=== PATIENT | male | born 1965 | race Caucasian/White ===

== ENCOUNTER → 2020-03-16 17:50 | Outpatient (CLI) | payer OTHER, SELFPAY ==
[2020-03-16 18:10] LABS: Basophils % 0.4 % (0.1-2.0); Eosinophils # 0.3 K/mm3 (0.0-0.4); Eosinophils % 2.8 % (0.1-12.0); Hematocrit 44.6 % (42.0-52.0); Hemoglobin 15.5 g/dL (14.1-18.0); Lymphocytes # 1.9 K/mm3 (0.7-4.5); Lymphocytes % 19.1 % (10-50); Mean Corpuscular HGB Conc 34.7 g/dL (31.8-35.4); Mean Corpuscular Hemoglobin 32.3 pg (27.0-31.2); Mean Corpuscular Volume 93.1 fl (80-94); Monocytes # 0.5 K/mm3 (0.1-1.0); Monocytes % 5.1 % (1.7-9.3); Neutrophils # 7.2 K/mm3 (1.8-7.8); Neutrophils % 72.6 % (37.0-80.0); Platelet Count 221 K/mm3 (142-424); Red Blood Count 4.79 M/mm3 (4.60-6.20); Red Cell Distribution Width 15.1 % (11.5-17.5); White Blood Count 9.8 K/mm3 (4.8-10.8)
[2020-03-16 18:29] LABS: Chloride 91 mmol/L (98-107); Potassium 3.9 mmoL/L (3.5-5.1); Sodium 132 mmol/L (136-145)
[2020-03-16 18:31] LABS: Blood Urea Nitrogen 16 mg/dl (9-20); Estimated Glomerular Filt Rate 57 ml/min (>60); GFR (African American) 69 ML/MIN (>60)
[2020-03-16 18:32] LABS: Alanine Aminotransferase 22 U/L (12-78); Albumin Level 4.5 g/dl (3.5-5.0); Albumin/Globulin Ratio 1.4 (1.1-1.8); Alkaline Phosphatase 146 U/L (38-126); Anion Gap 17.9 mEq/L (5-15); Aspartate Amino Transferase 39 U/L (17-59); Bilirubin,Total 0.9 mg/dl (0.2-1.3); Calcium 9.4 mg/dl (8.4-10.2); Carbon Dioxide 27 mmol/L (22.0-30.0); Chol/HDL Ratio 3.9 (1-3.5); Cholesterol 136 mg/dl (140-200); Globulin 3.2 g/dL (1.3-3.2); Glucose 309 mg/dl (74-100); HDL Cholesterol 35 mg/dl (40-60); Total Protein,Serum 7.7 g/dl (6.3-8.2)
[2020-03-16 18:44] LABS: Direct LDL Cholesterol 63.35 mg/dL (100-129)
[2020-03-16 19:02] LABS: Triglycerides 439 mg/dl (30-150)
[2020-03-16 19:18] LABS: Hemoglobin A1C 11.4 % (4.0-6.0)
== END ==
PROVIDERS: Visit Provider Family Medicine
DX: E11.9 Type 2 diabetes mellitus without complications (principal); Z79.84 Long term (current) use of oral hypoglycemic drugs
CPT/HCPCS: 80053; 80061; 83036; 85025

== ENCOUNTER → 2020-11-30 17:07 | Outpatient (CLI) | payer OTHER, SELFPAY ==
[2020-11-30 17:52] LABS: Basophils % 0.5 % (0.1-2.0); Eosinophils # 0.3 K/mm3 (0.0-0.4); Eosinophils % 4.4 % (0.1-12.0); Hematocrit 43.5 % (42.0-52.0); Hemoglobin 14.5 g/dL (14.1-18.0); Lymphocytes # 1.7 K/mm3 (0.7-4.5); Mean Corpuscular HGB Conc 33.3 g/dL (31.8-35.4); Mean Corpuscular Hemoglobin 29.9 pg (27.0-31.2); Mean Corpuscular Volume 89.9 fl (80-94); Mean Platelet Volume 8.1 fl (7.4-10.4); Monocytes # 0.4 K/mm3 (0.1-1.0); Monocytes % 4.8 % (1.7-9.3); Neutrophils # 5.3 K/mm3 (1.8-7.8); Neutrophils % 68.4 % (37.0-80.0); Platelet Count 202 K/mm3 (142-424); Red Blood Count 4.84 M/mm3 (4.60-6.20); White Blood Count 7.7 K/mm3 (4.8-10.8)
[2020-11-30 18:28] LABS: Chloride 95 mmol/L (98-107); Potassium 4.2 mmoL/L (3.5-5.1); Sodium 134 mmol/L (136-145)
[2020-11-30 18:31] LABS: Alanine Aminotransferase 27 U/L (12-78); Albumin Level 4.5 g/dl (3.5-5.0); Albumin/Globulin Ratio 1.7 (1.1-1.8); Alkaline Phosphatase 90 U/L (38-126); Anion Gap 12.2 mEq/L (5-15); Aspartate Amino Transferase 56 U/L (17-59); Bilirubin,Total 0.8 mg/dl (0.2-1.3); Blood Urea Nitrogen 12 mg/dl (9-20); Carbon Dioxide 31 mmol/L (22.0-30.0); Cholesterol 157 mg/dl (140-200); Estimated Glomerular Filt Rate 77 ml/min (>60); GFR (African American) 94 ML/MIN (>60); Globulin 2.6 g/dL (1.3-3.2); Total Protein,Serum 7.1 g/dl (6.3-8.2); Triglycerides 333 mg/dl (30-150); VLDL Cholesterol 67 mg/dL (0-40)
[2020-11-30 18:32] LABS: Calcium 9.5 mg/dl (8.4-10.2); Chol/HDL Ratio 4.9 (1-3.5); Glucose 223 mg/dl (74-100); HDL Cholesterol 32 mg/dl (40-60)
[2020-11-30 18:42] LABS: Direct LDL Cholesterol 84.23 mg/dL (100-129)
[2020-11-30 18:48] LABS: 25-OH Vitamin D, Total 18.8 ng/mL (30-100)
[2020-11-30 18:50] LABS: T4 (Thyroxine) 10.7 ug/dl (5.53-11.0)
[2020-11-30 19:02] LABS: Thyroid Stimulating Hormone 0.57 uIU/mL (0.465-4.68)
[2020-12-03 12:37] LABS: Creatinine,Urine Random 87 mg/dL (Not Estab.); Microalbumin > 190.000 mg/L (0-16.7); Microalbumin/Creatinine Ratio 218.3
[2020-12-07 16:00] LABS: Testosterone, Total, LC/MS 214.2 ng/dL (264.0-916.0); Testosterone,Free 2.4 pg/mL (7.2-24.0)
== END ==
PROVIDERS: Visit Provider Family Medicine
DX: I25.10 Atherosclerotic heart disease of native coronary artery without angina pectoris (principal); E11.59 Type 2 diabetes mellitus with other circulatory complications; Z79.4 Long term (current) use of insulin
CPT/HCPCS: 80053; 80061; 82043; 82306; 82570; 83036; 84402; 84403; 84436; 84443; 85025

== ENCOUNTER → 2021-01-31 14:07 | Outpatient (CLI) | payer OTHER, SELFPAY ==
[2021-01-31 14:37] LABS: Barbiturates Screen,Urine Negative ng/ml (<200)
[2021-01-31 14:38] LABS: Amphetamine/Metha Screen,Urine Negative ng/ml (<1000); Benzodiazepines Screen,Urine Negative ng/ml (<200)
[2021-01-31 14:39] LABS: Cocaine Screen,Urine Negative ng/ml (<300)
[2021-01-31 14:40] LABS: Cannabinoid Screen,Urine Negative ng/ml (<50); Methadone Screen,Urine Negative ng/ml (<300)
[2021-01-31 14:41] LABS: Opiate Screen,Urine Negative ng/ml (<300); Phencyclidine Screen,Urine Negative ng/ml (<25)
== END ==
PROVIDERS: Visit Provider Family Medicine
DX: Z79.899 Other long term (current) drug therapy (principal)
CPT/HCPCS: 80305

== ENCOUNTER 2021-05-17 10:37 | Inpatient (IN) | payer OTHER, SELFPAY ==
[2021-05-17] VITALS (9 sets, daily range): BP systolic 97–137; BP diastolic 44–77; PULSE 72–91; RESP 12–18; TEMP 36.8–37.1; O2SAT 90–95; BMI 36.9; BMI 82.0
--- NOTE | 2021-05-17 10:42 | XR_ITS ---
PROCEDURE: XR CHEST PORTABLE CLINICAL HISTORY: syncope COMPARISON: No exams were available for comparison FINDINGS: The cardiomediastinal silhouette and pulmonary vascularity are within normal limits. The lung burnette are well expanded. There patchy ill-defined opacities in the perihilar regions and lower lobes bilaterally. This could be secondary to early Covid19 type pneumonia. There is no pleural fluid. There are neurostimulator electrodes projecting over the mid thoracic spine. There has been previous anterior cervical fusion C7 and T1. IMPRESSION: Mild diffuse ill-defined opacities in the perihilar regions and lower lobes bilaterally worrisome for early viral and or Covid19 type pneumonia Dictated by: Dr. Tal Martin MD 05/17/2021 11:23 Dr. Tal Martin MD in [place] 05/17/2021 11:23
--- NOTE | 2021-05-17 10:44 | CT_ITS ---
PROCEDURE: CT HEAD/BRAIN WO CON CLINICAL INDICATION: gait disturbance COMPARISON: No exams were available for comparison TECHNIQUE: Axial images obtained. All CT scans at the facility use one or more dose reduction, viz: automated exposure control, ma/kV adjustment per patient size (including targeted exams where dose is matched to indication, i.e. head), or iterative reconstruction technique. FINDINGS: No midline shift, mass effect, intracranial hemorrhage, hydrocephalus, or extra-axial fluid collection is evident. The ventricular system appears normal. The calvarium has an unremarkable appearance. No mastoid effusion. The internal auditory canals appear normal bilaterally. No sinus air-fluid level. IMPRESSION: No acute intracranial finding Dictated by: Dr. Tal Martin MD 05/17/2021 11:21 Dr. Tal Martin MD in [facility] 05/17/2021 11:21
--- NOTE | 2021-05-17 10:44 | HMH.EDGENADL ---
ED Disposition Clinical Impression: SIENNA (acute kidney injury), Near syncope Disposition: Admitted As Inpatient Condition on Discharge: Fair Referrals: Ed Cavazos MD [Primary Care Provider] - Time of Disposition: 11:41 - Critical Care Critical Care Time: No Attestation: On 05/17/21, the high probability of a clinically significant, sudden or life threatening deterioration of the following system(s) required my full and direct attention, intervention and personal management. The time I documented below is in addition to time spent performing reported procedures but includes the following listed in this critical care notation. Medical Decision Making - Medical Records Medical records reviewed: Yes: I reviewed the patient's medical records. - Radu Inquiry Pt receiving controlled substance: No Vital Signs: 05/17/21 10:42 05/17/21 11:15 05/17/21 11:31 Temperature 98.4 F Temperature Source Oral Pulse Rate 91 H 87 Pulse Rate [Apical] 90 Respiratory Rate 18 16 16 Blood Pressure 97/44 L 100/49 L Blood Pressure [Right Arm] 101/49 L Blood Pressure Mean 61 66 Blood Pressure Mean [Right Arm] 66 Blood Pressure Source [Right Arm] Automatic Cuff Blood Pressure Position [Right Arm] Sitting 02 Sat by Pulse Oximetry 94 L 95 94 L Oxygen Delivery Method Room Air - Lab Data Lab results reviewed: Yes: I reviewed the patient's lab results. Lab Results 05/17/21 10:50: WBC 14.3 H, RBC 4.70, Hgb 14.9, Hct 44.2, MCV 94.1 H, MCH 31.7 H, MCHC 33.7, RDW 14.8, Plt Count 223, MPV 8.4, Neut % (Auto) 82.5 H, Lymph % (Auto) 11.6, [place] % (Auto) 3.5, Eos % (Auto) 2.1, Baso % (Auto) 0.3, Neut # (Auto) 11.8 H, Lymph # (Auto) 1.7, [place] # (Auto) 0.5, Eos # (Auto) 0.3, Baso # (Auto) 0.0 05/17/21 10:50: Sodium 129 L, Potassium 3.8, Chloride 90 L, Carbon Dioxide 24, Anion Gap 18.8 H, BUN 48 H, Creatinine 4.50 H, Estimated Creat Clear 29, Estimated GFR 14 L*, Est GFR ( Amer) 16 L*, Glucose 244 H, Calcium 8.7, Total Bilirubin 1.5 H, AST 38, ALT 32, Alkaline Phosphatase 108, Troponin I 0.02, Total Protein 8.1, Albumin 4.3, Globulin 3.8 H, Albumin/Globulin Ratio 1.1 05/17/21 11:37: SARS-CoV-2 (PCR) Not detected, Influenza A Untype (PCR) Not detected, Influenza Type B (PCR) Not detected Result diagrams: 05/17/21 10:50 05/17/21 10:50 Orders (Tests/Meds): ED MEDICATIONS Generic Name Dose Route Start Last Admin Trade Name Freq PRN Reason Stop Dose Admin Lactated Ringer's 1,000 mls @ 999 mls/hr 05/17/21 11:30 05/17/21 11:39 Lactated Ringer's 1000 Ml Bag IV 05/17/21 12:30 999 mls/hr .[id number] MAMIE Administration ORDERS Category Date Time Status Lactic Acid Stat Lab 05/17/21 12:03 Received Urinalysis and Microscopic Stat Lab 05/17/21 10:43 Ordered - Radiology Data #1 Image(s): Chest Image Reviewed: Yes I reviewed the patient's radiology results Preliminary Findings: Abnormal Infiltrate, possible early COVID-19 - CT Data CT Scan: Head Time Received: 11:[address] Reviewed: Yes: I have reviewed the patient's CT results Preliminary Findings: Normal/NAD - ECG Data Tracing #1 I reviewed this ECG and interpreted as documented below: Normal sinus rhythm, 87 bpm, no ST ovation or depression, no ectopy. ECG initial impression date: 05/17/21 ECG initial impression time: 10:59 Medical Decision Narrative: 55yo M presents the emergency department from his PCP office secondary to hypotension and near syncope. Patient is in no acute distress initial evaluation. His blood pressure is soft though MAP is greater than 65. Physical exam is unremarkable though he does have a small skin lesion to his belt line on the left side that appears to be healing. There is minimal surrounding erythema. CBC, CMP, troponin, lactic acids, EKG, CT head and chest x-ray have been completed. CBC shows a mild leukocytosis. Metabolic panel is remarkable for a creatinine of 4.5. Patient also noted to have an anion gap
--- NOTE | 2021-05-17 10:55 | ECG_ITS ---
APPROVED REPORT Exam: Resting ECG HR:87 bpm ECG Measurements Heart Rate 87 AXES [place] 180 P QRSd 96 QRS 102 QT 412 T 155 QTc 495 Conclusion Normal sinus rhythm Non-significant q waves in inf leads noted Poor r wave progression Abnormal ECG Electronically signed by : Abraham Hernandez MD 05/18/2021 08:22:23
--- NOTE | 2021-05-17 10:58 | PC.NURSE ---
pt to CT
[2021-05-17 11:05] LABS: Basophils % 0.3 % (0.1-2.0); Eosinophils # 0.3 K/mm3 (0.0-0.4); Eosinophils % 2.1 % (0.1-12.0); Hematocrit 44.2 % (42.0-52.0); Hemoglobin 14.9 g/dL (14.1-18.0); Lymphocytes # 1.7 K/mm3 (0.7-4.5); Lymphocytes % 11.6 % (10-50); Mean Corpuscular HGB Conc 33.7 g/dL (31.8-35.4); Mean Corpuscular Hemoglobin 31.7 pg (27.0-31.2); Mean Corpuscular Volume 94.1 fl (80-94); Mean Platelet Volume 8.4 fl (7.4-10.4); Monocytes # 0.5 K/mm3 (0.1-1.0); Monocytes % 3.5 % (1.7-9.3); Neutrophils # 11.8 K/mm3 (1.8-7.8); Neutrophils % 82.5 % (37.0-80.0); Platelet Count 223 K/mm3 (142-424); Red Cell Distribution Width 14.8 % (11.5-17.5); White Blood Count 14.3 K/mm3 (4.8-10.8)
[2021-05-17 11:13] LABS: Alanine Aminotransferase 32 U/L (12-78); Albumin Level 4.3 g/dl (3.5-5.0); Albumin/Globulin Ratio 1.1 (1.1-1.8); Alkaline Phosphatase 108 U/L (38-126); Anion Gap 18.8 mEq/L (5-15); Aspartate Amino Transferase 38 U/L (17-59); Bilirubin,Total 1.5 mg/dl (0.2-1.3); Blood Urea Nitrogen 48 mg/dl (9-20); Calcium 8.7 mg/dl (8.4-10.2); Carbon Dioxide 24 mmol/L (22.0-30.0); Chloride 90 mmol/L (98-107); Creatinine Clearance Estimated 29 mL/min (50-200); Estimated Glomerular Filt Rate 14 ml/min (>60); GFR (African American) 16 ML/MIN (>60); Globulin 3.8 g/dL (1.3-3.2); Glucose 244 mg/dl (74-100); Potassium 3.8 mmoL/L (3.5-5.1); Sodium 129 mmol/L (136-145); Total Protein,Serum 8.1 g/dl (6.3-8.2)
[2021-05-17 11:25] LABS: Troponin I 0.02 ng/ml (0.00-0.034)
--- NOTE | 2021-05-17 11:34 | PC.NURSE ---
Dr Dirk stanton
[2021-05-17 11:43] LABS: Coronavirus 19, PCR Not Detected (NotDetected); Influenza A, PCR Not Detected (NotDetected); Influenza B, PCR Not Detected (NotDetected)
--- NOTE | 2021-05-17 12:05 | PC.NURSE ---
Dr Dirk stanton
--- NOTE | 2021-05-17 12:09 | PC.NURSE ---
speaking with Dr. Cavazos
--- NOTE | 2021-05-17 12:11 | PC.NURSE ---
Notified care management of admission
[2021-05-17 12:27] LABS: Lactic Acid 1.2 mmol/L (0.7-2.1)
--- NOTE | 2021-05-17 12:39 | PC.NURSE ---
report called to stephanie hawk on second floor at this time.
--- NOTE | 2021-05-17 12:40 | P.CONPHA_ITS ---
[facility] Pharmacy VTE Monitoring - Patient Demographics Admission date: 05/17/21 Report Date: 05/17/21 Time: 12:41 Allergies/Adverse Reactions: Patient Allergies No Known Allergies Allergy (Verified 05/17/21 09:02) Height: 1.75 m Weight: 113.398 kg Patient Problems: Current Active Problems SIENNA (acute kidney injury) (Acute) Near syncope (Acute) - VTE Risk Labs: VTE Related Lab Results Hgb 14.9 g/dL (14.1-18.0) 05/17/21 10:50 Hct 44.2 % (42.0-52.0) 05/17/21 10:50 Plt Count 223 K/mm3 (142-424) 05/17/21 10:50 BUN 48 mg/dl (9-20) H 05/17/21 10:50 Creatinine 4.50 mg/dl (0.66-1.25) H 05/17/21 10:50 Estimated Creat Clear 29 mL/min (50-200) 05/17/21 10:50 - Prophylaxis VTE Prophylaxis Ordered?: Yes Types of VTE Prophylaxis: IPCS Thigh High, Pharmacological Location of Applied Device: Bilateral Lower Extremeties Pharmacologic Type: Enoxaparin
--- NOTE | 2021-05-17 12:40 | HMH.PHAINT ---
MEDICATION RECONCILIATION COMPLETED ON PATIENT USING EXTERNAL FILL HISTORY FROM PHARMACY AND LIST FROM DR. CORTEZ' OFFICE. -DIYA HANEY, HOLLANDD
[2021-05-17 16:12] LABS: POC Glucose,Bedside 230 (70-110)
--- NOTE | 2021-05-17 17:48 | US_ITS ---
PROCEDURE INFORMATION: Exam: US Retroperitoneal; Complete; Kidneys and Bladder Exam date and time: 05/17/2021 5:48 PM Age: 55 years old Clinical indication: Other: Dizzy, bun and creat elevated, diabetic, low sodium; Additional info: [place] TECHNIQUE: Imaging protocol: Real-time ultrasound of the retroperitoneum with image documentation. Complete exam focused on the kidneys and bladder. COMPARISON: No relevant prior studies available. FINDINGS: Right kidney: Normal. No stones. No hydronephrosis. 11.7 x 5.6 x 8 cm. Left kidney: Normal. No stones. No hydronephrosis. 11.7 x 5.6 x 5.4 cm. Urinary bladder: Unremarkable. IMPRESSION: Unremarkable kidneys and bladder.
--- NOTE | 2021-05-17 18:32 | HMH.HP ---
*Admission Date: 05/17/21 *Chief complaint: syncope, hypotension,acute kidney injury *History of present illness: Patient is a 55-year-old white male, well-known to me. Patient was seen in my office this morning. I received a call from his mother last night, she relate that he was getting progressively weak and had had a syncopal episode while working yesterday. 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 Patient has a history of coronary artery disease, status post stent deployment. Patient has a history of diabetes, poor control, marginal dietary compliance with a fairly recent renewal of interest in achieving better control. Patient has a history of failed lumbar surgery, intractable pain radiating into bilateral lower extremities. Patient has a history of tobacco abuse. Patient was seen not long ago in the office. He had a skin lesion along the left anterior lateral beltline that was suggestive of a MRSA infection. He has had very similar infections in the past in the same location, treated with Bactrim successfully. Patient was placed on Bactrim at that last office visit. Patient was worked up in the office with an EKG, showing normal sinus rhythm, normal intervals, no acute ST changes. Rotdc-ct-vtcg glucose was in the 200s. Patient subsequently work-up in the emergency room. CT of the brain is negative. Lab work is significant for a creatinine of 4.5. His white count is mildly elevated, sodium reduced at 129. He is admitted for further evaluation and treatment. I just finished examining the patient in the ultrasound room, kidneys appear grossly normal without signs of obstruction. Final reading by the virtual radiologist is pending. Prior to admission the patient relays being unsteady on his feet, shaky, fatigued, globally weakened, with appetite loss and limited p.o. intake. His blood pressure readings have been low, has been holding his losartan. Patient has a history of Rene's palsy about 2 years ago. This has come to near complete resolution. Patient has a fine tremor, especially notable when using the keyboard. There are no other focal neurologic deficits. Normal CT the brain is reassuring [facility] History Medical History: Reports:: Anxiety, Congenital Heart Disease, Coronary Artery Disease, Depression, Diabetes Mellitus Type 2, Gastroesophageal Reflux Disease(GERD), Hyperlipidemia, Hypertension Denies:: Cancer, Diabetes Mellitus Type 1, MRSA *Have you ever received a pneumonia vaccine?: Yes *Have you received a flu vaccine this season?: No Other Surgeries: Yes: Cardiac Catheterization, Coronary Stent Amputation: No Fractures: Yes (RT wrist) - *Social History Smoking Status: Current every day smoker Tobacco Type: cigarettes # Packs/Day (cigarettes): 2 #Yrs smoked (if former smoker): 20 Alcohol Intake: current Alcohol Intake Frequency:: a few times a month Substance Use Type: denies use *Occupational Status:: employed Housing: house Household Members: spouse *Travel in the last 8 weeks: None - Psychiatric History Pschychiatric History:: Reports:: Anxiety, Depression Family Hx:: No significant family history Review of Systems - Constitutional Reports anorexia, Reports fatigue, Reports lack of energy, Reports malaise - Eyes Denies change in vision - ENT Denies abnormal hearing - *Cardiovascular Reports lightheadedness, Denies chest pain - *Respiratory Denies chest congestion - *Gastrointestinal Denies abdominal pain - *Genitourinary Reports decreased urination, Denies difficulty urinating, Denies painful urination, Denies side pain, Denies urinary hesitancy - *Musculoskeletal Reports abnormal walking - Integumentary/Breasts Reports boil - *Neurologic Reports abnormal walking, Reports lack of coordination, Reports fainting, Reports tremor(s), Reports dizziness, Reports weakness - Psychiatric Reports difficulty concentrating, Denies lack of enjoyment, Denies memory loss - Endoc
[2021-05-17 19:38] LABS: Anion Gap 14.3 mEq/L (5-15); Blood Urea Nitrogen 49 mg/dl (9-20); Calcium 8.2 mg/dl (8.4-10.2); Carbon Dioxide 24 mmol/L (22.0-30.0); Chloride 95 mmol/L (98-107); Creatinine Clearance Estimated 27 mL/min (50-200); Estimated Glomerular Filt Rate 21 ml/min (>60); GFR (African American) 25 ML/MIN (>60); Glucose 203 mg/dl (74-100); Potassium 4.3 mmoL/L (3.5-5.1); Sodium 129 mmol/L (136-145)
[2021-05-17 22:11] LABS: POC Glucose,Bedside 191 (70-110)
[2021-05-18] VITALS (8 sets, daily range): BP systolic 109–161; BP diastolic 70–94; PULSE 75–101; RESP 16–18; TEMP 36.6–37.3; O2SAT 90–94; BMI 37.6
--- NOTE | 2021-05-18 05:01 | PC.NURSE ---
Pt a+o x4. Pt has slept majority of shift. No complaints voiced to staff. Lung sounds clear. BM sounds active x4q. Able to ambulate to BR independently. CB in reach.
[2021-05-18 05:56] LABS: POC Glucose,Bedside 155 (70-110)
[2021-05-18 06:15] LABS: Basophils % 0.4 % (0.1-2.0); Eosinophils # 0.3 K/mm3 (0.0-0.4); Eosinophils % 3.1 % (0.1-12.0); Hematocrit 39.8 % (42.0-52.0); Hemoglobin 13.1 g/dL (14.1-18.0); Lymphocytes # 1.5 K/mm3 (0.7-4.5); Lymphocytes % 17.8 % (10-50); Mean Corpuscular HGB Conc 32.8 g/dL (31.8-35.4); Mean Corpuscular Hemoglobin 31.3 pg (27.0-31.2); Mean Corpuscular Volume 95.4 fl (80-94); Mean Platelet Volume 8.8 fl (7.4-10.4); Monocytes # 0.4 K/mm3 (0.1-1.0); Monocytes % 4.8 % (1.7-9.3); Neutrophils # 6.4 K/mm3 (1.8-7.8); Neutrophils % 73.9 % (37.0-80.0); Platelet Count 186 K/mm3 (142-424); Red Blood Count 4.17 M/mm3 (4.60-6.20); Red Cell Distribution Width 14.8 % (11.5-17.5); White Blood Count 8.6 K/mm3 (4.8-10.8)
[2021-05-18 06:24] LABS: Chloride 99 mmol/L (98-107); Sodium 135 mmol/L (136-145)
[2021-05-18 06:25] LABS: Potassium 3.7 mmoL/L (3.5-5.1)
[2021-05-18 06:27] LABS: Alanine Aminotransferase 22 U/L (12-78); Alkaline Phosphatase 104 U/L (38-126); Aspartate Amino Transferase 32 U/L (17-59); Blood Urea Nitrogen 38 mg/dl (9-20); Creatinine Clearance Estimated 67 mL/min (50-200); Estimated Glomerular Filt Rate 35 ml/min (>60); GFR (African American) 42 ML/MIN (>60)
[2021-05-18 06:28] LABS: Albumin Level 3.5 g/dl (3.5-5.0); Albumin/Globulin Ratio 1.1 (1.1-1.8); Anion Gap 13.7 mEq/L (5-15); Calcium 8.4 mg/dl (8.4-10.2); Carbon Dioxide 26 mmol/L (22.0-30.0); Globulin 3.2 g/dL (1.3-3.2); Glucose 162 mg/dl (74-100); Total Protein,Serum 6.7 g/dl (6.3-8.2)
--- NOTE | 2021-05-18 06:32 | CT_ITS ---
PROCEDURE INFORMATION: Exam: CT Abdomen And Pelvis Without Contrast Exam date and time: 05/18/2021 6:32 AM Age: 55 years old Clinical indication: Abdominal pain; Generalized; Additional info: Abd pain / no previous surgery on abdomen/ spinal stimulator in back TECHNIQUE: Imaging protocol: Computed tomography of the abdomen and pelvis without contrast. Radiation optimization: All CT scans at this facility use at least one of these dose optimization techniques: automated exposure control; mA and/or kV adjustment per patient size (includes targeted exams where dose is matched to clinical indication); or iterative reconstruction. COMPARISON: US KIDNEY 05/17/2021 6:12 PM FINDINGS: Tubes, catheters and devices: There is partial visualization of a spinal stimulator. Lungs: There are small left basilar infiltrates and possible right basilar infiltrates. Heart: There are coronary artery calcifications. Liver: There is fatty infiltration of the liver. Gallbladder and bile ducts: There are multiple gallstones. Pancreas: Normal. No ductal dilation. Spleen: The spleen measures up to 17.7 cm. There are few scattered splenic calcifications. Adrenal glands: Normal. No mass. Kidneys and ureters: No renal calculus. No hydronephrosis. Stomach and bowel: No obstruction. Appendix: No evidence of appendicitis. Intraperitoneal space: No free air. No significant fluid collection. Vasculature: There is athrosclerotic disease involving the abdominal aorta and pelvis vessels without an aneurysm. Lymph nodes: No enlarged lymph nodes. Urinary bladder: Unremarkable as visualized. Reproductive: Unremarkable as visualized. Bones/joints: There are some degenerative changes of the spine not fully assessed. Soft tissues: There is a fat containing periumbilical hernia. IMPRESSION: 1. There are small basilar infiltrates which are nonspecific findings. These could be secondary to an atypical pneumonia, including aspiration pneumonia or viral pneumonia. 2. Gallstones. 3. Splenomegaly.
--- NOTE | 2021-05-18 07:09 | HMH.ITSTN ---
called nurse for patient he is able to travel by wheelchair -- he is asleep right now but easy to wake. advised order was placed as routine, I will come get patient as soon as ER is caught up
[2021-05-18 08:33] LABS: Microscopic, Urine URINE MICROSCOPIC (MICROSCOPIC)
[2021-05-18 09:43] LABS: Appearance,Urine CLEAR (Clear); Bilirubin,Urine Negative (Negative); Blood, Urine TRACE-I (Negative); Color,Urine YELLOW (Yellow); Glucose,Urine (UA) TRACE (Negative); Ketones,Urine Negative (Negative); Leukocyte Esterase,Urine Negative (Negative); Nitrate,Urine Negative (Negative); PH,Urine 5.5 (5.0-8.5); Protein,Urine Negative (Negative)
--- NOTE | 2021-05-18 11:32 | HMH.ACPN2 ---
Internal Medicine - PN: Subj *Date: 05/18/21 *Time: 09:00 Interval history: pt states he is feeling better. per xray pneumonia Exam Vital signs and Labs for Last 24 Hours: Temp Pulse Resp BP Pulse Ox 98.6 F 97 H 18 133/92 H 94 L 05/18/21 08:00 05/18/21 08:00 05/18/21 08:00 05/18/21 08:00 05/18/21 08:00 Laboratory Results - last 24 hr 05/17/21 11:37: SARS-CoV-2 (PCR) Not detected, Influenza A Untype (PCR) Not detected, Influenza Type B (PCR) Not detected 05/17/21 12:03: Lactate 1.2 05/17/21 15:54: POC Glucose 230 H 05/17/21 19:00: Sodium 129 L, Potassium 4.3, Chloride 95 L, Carbon Dioxide 24, Anion Gap 14.3, BUN 49 H, Creatinine 3.10 H D, Estimated Creat Clear 27, Estimated GFR 21 L, Est GFR ( Amer) 25 L D, Glucose 203 H, Calcium 8.2 L 05/17/21 22:01: POC Glucose 191 H 05/18/21 05:37: POC Glucose 155 H 05/18/21 06:03: WBC 8.6 D, RBC 4.17 L, Hgb 13.1 L D, Hct 39.8 L, MCV 95.4 H, MCH 31.3 H, MCHC 32.8, RDW 14.8, Plt Count 186, MPV 8.8, Neut % (Auto) 73.9, Lymph % (Auto) 17.8, [place] % (Auto) 4.8, Eos % (Auto) 3.1, Baso % (Auto) 0.4, Neut # (Auto) 6.4, Lymph # (Auto) 1.5, [place] # (Auto) 0.4, Eos # (Auto) 0.3, Baso # (Auto) 0.0 05/18/21 06:03: Sodium 135 L, Potassium 3.7, Chloride 99, Carbon Dioxide 26, Anion Gap 13.7, BUN 38 H, Creatinine 2.00 H D, Estimated Creat Clear 67, Estimated GFR 35 L, Est GFR ( Amer) 42 L D, Glucose 162 H D, Calcium 8.4, Total Bilirubin 1.0, AST 32, ALT 22 D, Alkaline Phosphatase 104, Total Protein 6.7, Albumin 3.5 D, Globulin 3.2, Albumin/Globulin Ratio 1.1 05/18/21 08:25: Urine Color Yellow, Urine Appearance Clear, Urine pH 5.5, Ur Specific [place] 1.020, Urine Protein Negative, Urine Glucose (UA) Trace, Urine Ketones Negative, Urine Blood Trace-i, Urine Nitrate Negative, Urine Bilirubin Negative, Urine Urobilinogen 1.0, Ur Leukocyte Esterase Negative, Urine RBC 3-5, Ur Squamous Epith Cells 3-5 I & O for Last 24 hours: Intake & Output 05/15/21 05/16/21 05/17/21 05/18/21 11:59 11:59 11:59 11:59 Intake Total 750 / 750 Output Total 1500 / 1500 Balance -750 / -750 Weight 250 lb 254 lb - Constitutional no acute distress - *Routine HEENT Exam Head: Present: normocephalic Eye: Present: PERRL ENT: Present: mucous membranes moist - *Routine Neck Exam Present: supple. Absent: lymphadenopathy - *Routine Respiratory Exam Present: CTA bilaterally - *Routine Cardiovascular Exam Present: RRR - *Routine Abdominal Exam Present: soft, normoactive bowel sounds. Absent: tenderness - *Routine Extremities Exam Absent: cyanosis, clubbing, edema - *Routine Skin Exam Present: warm. Absent: rash - *Routine Neurological Exam Present: alert, oriented X3 Assessment and Plan (1) SIENNA (acute kidney injury) Status: Acute Category: Medical Code(s): N17.9 - Acute kidney failure, unspecified (2) Near syncope Status: Acute Category: Medical Code(s): R55 - Syncope and collapse (3) CAD (coronary artery disease) Status: Chronic Qualifiers: Coronary Disease-Associated Artery/Lesion type: [place] artery [place] vs. transplanted heart: [place] heart Associated angina: without angina Qualified Code(s): I25.10 - Atherosclerotic heart disease of [place] coronary artery without angina pectoris Category: Medical Code(s): I25.10 - Atherosclerotic heart disease of [place] coronary artery without angina pectoris (4) Chronic back pain greater than 3 months duration Status: Chronic Category: Medical Code(s): M54.9 - Dorsalgia, unspecified; G89.29 - Other chronic pain (5) Diabetes Status: Chronic Qualifiers: Diabetes mellitus type: type 2 Diabetes mellitus rn long term care insulin use: without mcfp use Diabetes mellitus complication status: with circulatory complication Diabetes mellitus complication detail: with other circulatory complications Qualified Code(s): E11.59 - Type 2 diabetes mellitus with other circulatory complications
[2021-05-18 12:10] LABS: POC Glucose,Bedside 191 (70-110)
[2021-05-18 17:23] LABS: POC Glucose,Bedside 294 (70-110)
--- NOTE | 2021-05-18 17:33 | PC.NURSE ---
Pt has done fine this shift. Pt has c/o lower back pain x1 this shift, medicated per SEP w/ favorable results. Pt has been given a specimen cup for sputum, pt educated on need for sample and he will call out if he is able to produce anything. No other acute changes or complaints, will continue to monitor
[2021-05-18 18:12] LABS: Chloride 100 mmol/L (98-107); Sodium 134 mmol/L (136-145)
[2021-05-18 18:13] LABS: Potassium 4.6 mmoL/L (3.5-5.1)
[2021-05-18 18:16] LABS: Blood Urea Nitrogen 33 mg/dl (9-20); Calcium 8.6 mg/dl (8.4-10.2); Carbon Dioxide 24 mmol/L (22.0-30.0); Creatinine Clearance Estimated 84 mL/min (50-200); Estimated Glomerular Filt Rate 45 ml/min (>60); GFR (African American) 54 ML/MIN (>60); Glucose 334 mg/dl (74-100)
[2021-05-18 18:23] LABS: Anion Gap 14.6 mEq/L (5-15)
[2021-05-18 21:49] LABS: POC Glucose,Bedside 350 (70-110)
[2021-05-19] VITALS: BP 146/65; PULSE 69; RESP 17; TEMP 36.4; O2SAT 93
[2021-05-19 04:00] VITALS: BP 163/80; RESP 16; TEMP 36.4; O2SAT 95
[2021-05-19 05:36] VITALS: BMI 37.3
[2021-05-19 06:00] LABS: POC Glucose,Bedside 228 (70-110)
[2021-05-19 06:15] VITALS: PULSE 61; O2SAT 95
--- NOTE | 2021-05-19 06:45 | PC.NURSE ---
No acute changes. No complaints voiced to staff. Slept majority of shift. Tolerating RA well with sats above 93%. Inspiratory/expiratory wheezing noted bilaterally t/o. Pt able to use urinal independently. Urine clear and evelina.
[2021-05-19 08:00] VITALS: BP 166/67; PULSE 72; RESP 20; TEMP 36.9; O2SAT 98
[2021-05-19 11:52] LABS: POC Glucose,Bedside 283 (70-110)
--- NOTE | 2021-05-19 12:15 | PC.NURSE ---
pt has dry cough at his time. deep breath and cough post neb with no results. pt has cup at bedside and understands.
--- NOTE | 2021-05-19 12:23 | HMH.ACPN2 ---
Internal Medicine - PN: Subj *Date: 05/19/21 *Time: 09:40 Interval history: pt states doing better Exam Vital signs and Labs for Last 24 Hours: Temp Pulse Resp BP Pulse Ox 98.5 F 72 20 166/67 H 98 05/19/21 08:00 05/19/21 08:00 05/19/21 08:00 05/19/21 08:00 05/19/21 08:00 Laboratory Results - last 24 hr 05/18/21 16:31: POC Glucose 294 H 05/18/21 17:55: Sodium 134 L, Potassium 4.6 D, Chloride 100, Carbon Dioxide 24, Anion Gap 14.6, BUN 33 H, Creatinine 1.60 H, Estimated Creat Clear 84, Estimated GFR 45 L, Est GFR ( Amer) 54 L D, Glucose 334 H D, Calcium 8.6 05/18/21 20:01: POC Glucose 350 H* 05/19/21 05:20: POC Glucose 228 H 05/19/21 11:38: POC Glucose 283 H I & O for Last 24 hours: Intake & Output 05/17/21 05/18/21 05/19/21 05/20/21 11:59 11:59 11:59 11:59 Intake Total 750 / 750 1560 / 1560 Output Total 1500 / 2075 1575 / 1575 Balance -750 / -1325 -15 / -15 Weight 250 lb 254 lb 252 lb 1.6 oz Microbiology Reports for the Last 24 Hours: Microbiology 05/18/21 13:09 Nasopharyngeal Coronavirus COVID-19 PCR - Final - Constitutional no acute distress - *Routine HEENT Exam Head: Present: normocephalic Eye: Present: PERRL ENT: Present: mucous membranes moist - *Routine Neck Exam Present: supple. Absent: lymphadenopathy - *Routine Respiratory Exam Present: rhonchi - *Routine Cardiovascular Exam Present: RRR - *Routine Abdominal Exam Present: soft, normoactive bowel sounds. Absent: tenderness - *Routine Extremities Exam Absent: cyanosis, clubbing, edema - *Routine Skin Exam Present: warm. Absent: rash - *Routine Neurological Exam Present: alert, oriented X3 Assessment and Plan (1) SIENNA (acute kidney injury) Status: Acute Category: Medical Code(s): N17.9 - Acute kidney failure, unspecified (2) Near syncope Status: Acute Category: Medical Code(s): R55 - Syncope and collapse (3) CAD (coronary artery disease) Status: Chronic Qualifiers: Coronary Disease-Associated Artery/Lesion type: [place] artery [place] vs. 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: without penitentiary use Diabetes mellitus complication status: with circulatory complication Diabetes mellitus complication detail: with other circulatory complications Qualified Code(s): E11.59 - Type 2 diabetes mellitus with other circulatory complications Category: Medical Code(s): E11.9 - Type 2 diabetes mellitus without complications (6) Sacral nerve stimulator present Status: Chronic Category: Medical Code(s): Z96.82 - Presence of neurostimulator (7) Stented coronary artery Status: Chronic Category: Surgical Code(s): Z95.5 - Presence of coronary angioplasty implant and graft (8) Dehydration Status: Acute Category: Medical Code(s): E86.0 - Dehydration (9) Pneumonia Status: Acute Qualifiers: Pneumonia type: due to unspecified organism Category: Medical Code(s): J18.9 - Pneumonia, unspecified organism - Assessment and plan all Dx Assessment and Plan for all problems:: shani to round later all orders per dr mcleod
[2021-05-19 12:53] LABS: Basophils % 0.1 % (0.1-2.0); Eosinophils % 0.2 % (0.1-12.0); Hematocrit 41.7 % (42.0-52.0); Hemoglobin 13.5 g/dL (14.1-18.0); Lymphocytes # 0.8 K/mm3 (0.7-4.5); Lymphocytes % 8.4 % (10-50); Mean Corpuscular HGB Conc 32.5 g/dL (31.8-35.4); Mean Corpuscular Hemoglobin 31.2 pg (27.0-31.2); Mean Corpuscular Volume 96.2 fl (80-94); Mean Platelet Volume 9.5 fl (7.4-10.4); Monocytes # 0.4 K/mm3 (0.1-1.0); Monocytes % 3.8 % (1.7-9.3); Neutrophils # 8.7 K/mm3 (1.8-7.8); Neutrophils % 87.6 % (37.0-80.0); Platelet Count 217 K/mm3 (142-424); Red Blood Count 4.34 M/mm3 (4.60-6.20); Red Cell Distribution Width 14.6 % (11.5-17.5)
[2021-05-19 13:01] LABS: MANUAL DIFFERENTIAL MANUAL DIFFERENTIAL (MANUAL DIFF)
[2021-05-19 13:06] LABS: Anion Gap 12.3 mEq/L (5-15); Blood Urea Nitrogen 34 mg/dl (9-20); Calcium 9.1 mg/dl (8.4-10.2); Carbon Dioxide 27 mmol/L (22.0-30.0); Chloride 101 mmol/L (98-107); Creatinine Clearance Estimated 111 mL/min (50-200); Estimated Glomerular Filt Rate 63 ml/min (>60); GFR (African American) 76 ML/MIN (>60); Glucose 301 mg/dl (74-100); Potassium 4.3 mmoL/L (3.5-5.1); Sodium 136 mmol/L (136-145)
[2021-05-19 13:15] LABS: NT Pro Brain Natriuretic Pep. 1960 pg/mL (0-125)
--- NOTE | 2021-05-19 13:15 | HMH.DCSUM ---
General - General Admission date:: 05/17/21 Discharge date: 05/19/21 HPI HPI: Patient is a 55-year-old white male, well-known to me. Patient was seen in my office this morning. I received a call from his mother last night, she relate that he was getting progressively weak and had had a syncopal episode while working yesterday. 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 Patient has a history of coronary artery disease, status post stent deployment. Patient has a history of diabetes, poor control, marginal dietary compliance with a fairly recent renewal of interest in achieving better control. Patient has a history of failed lumbar surgery, intractable pain radiating into bilateral lower extremities. Patient has a history of tobacco abuse. Patient was seen not long ago in the office. He had a skin lesion along the left anterior lateral beltline that was suggestive of a MRSA infection. He has had very similar infections in the past in the same location, treated with Bactrim successfully. Patient was placed on Bactrim at that last office visit. Patient was worked up in the office with an EKG, showing normal sinus rhythm, normal intervals, no acute ST changes. [id number] glucose was in the 200s. Patient subsequently work-up in the emergency room. CT of the brain is negative. Lab work is significant for a creatinine of 4.5. His white count is mildly elevated, sodium reduced at 129. He is admitted for further evaluation and treatment. I just finished examining the patient in the ultrasound room, kidneys appear grossly normal without signs of obstruction. Final reading by the virtual radiologist is pending. Prior to admission the patient relays being unsteady on his feet, shaky, fatigued, globally weakened, with appetite loss and limited p.o. intake. His blood pressure readings have been low, has been holding his losartan. Patient has a history of Rene's palsy about 2 years ago. This has come to near complete resolution. Patient has a fine tremor, especially notable when using the keyboard. There are no other focal neurologic deficits. Normal CT the brain is reassuring Hospital Course Hospital Course: Laboratory Tests 05/17/21 05/17/21 05/17/21 10:50 10:50 11:37 WBC 14.3 H RBC 4.70 Hgb 14.9 Hct 44.2 MCV 94.1 H MCH 31.7 H MCHC 33.7 RDW 14.8 Plt Count 223 MPV 8.4 Neut % (Auto) 82.5 H Lymph % (Auto) 11.6 [place] % (Auto) 3.5 Eos % (Auto) 2.1 Baso % (Auto) 0.3 Neut # (Auto) 11.8 H Lymph # (Auto) 1.7 [place] # (Auto) 0.5 Eos # (Auto) 0.3 Baso # (Auto) 0.0 Sodium 129 L Potassium 3.8 Chloride 90 L Carbon Dioxide 24 Anion Gap 18.8 H BUN 48 H Creatinine 4.50 H Estimated Creat Clear 29 Estimated GFR 14 L* Est GFR ( Amer) 16 L* Glucose 244 H POC Glucose Lactate Calcium 8.7 Total Bilirubin 1.5 H AST 38 ALT 32 Alkaline Phosphatase 108 Troponin I 0.02 Total Protein 8.1 Albumin 4.3 Globulin 3.8 H Albumin/Globulin Ratio 1.1 Urine Color Urine Appearance Urine pH Ur Specific [place] Urine Protein Urine Glucose (UA) Urine Ketones Urine Blood Urine Nitrate Urine Bilirubin Urine Urobilinogen Ur Leukocyte Esterase Urine RBC Ur Squamous Epith Cells SARS-CoV-2 (PCR) Not detected Influenza A Untype (PCR) Not detected Influenza Type B (PCR) Not detected 05/17/21 05/17/21 05/17/21 12:03 15:54 19:00 WBC RBC Hgb Hct MCV MCH MCHC RDW Plt Count MPV Neut % (Auto) Lymph % (Auto) [place] % (Auto) Eos % (Auto) Baso % (Auto) Neut # (Auto) Lymph # (Auto) [place] # (Auto) Eos # (Auto) Baso # (Auto) Sodium 129 L Potassium 4.3 Chloride 95 L Carbon Dioxide 24 Anion Gap 14.3 BUN 49 H Creatinine 3.10 H D Estimated Creat Clear
[2021-05-19 13:50] LABS: Lymphocytes % 9 % (10-50); Macrocytosis 1+; Monocytes % 4 % (2-9); Neutrophils % 87 % (42-76); Platelet Estimate Normal; Total Cells Counted 100
== END 2021-05-19 15:23 | disposition home or self-care (01) | DRG 682 ==
LOC: ER 11:41 → 2ND 14:21
PROVIDERS: Nurse Practitioner Family; Admitting Provider Family Medicine; Emergency Provider Family Medicine; PCP Family Medicine; Visit Provider Family Medicine
DX: N17.9 Acute kidney failure, unspecified (principal); J18.9 Pneumonia, unspecified organism; R55 Syncope and collapse; E11.9 Type 2 diabetes mellitus without complications; I10 Essential (primary) hypertension; Z95.5 Presence of coronary angioplasty implant and graft; F17.210 Nicotine dependence, cigarettes, uncomplicated; Z96.82 Presence of neurostimulator; E86.0 Dehydration; G89.29 Other chronic pain; M54.9 Dorsalgia, unspecified; I25.10 Atherosclerotic heart disease of native coronary artery without angina pectoris; K21.9 Gastro-esophageal reflux disease without esophagitis; F41.9 Anxiety disorder, unspecified; F32.A Depression, unspecified
CPT/HCPCS: 36415; 70450; 71045; 74176; 76770; 80048; 80053; 81001; 82962; 83605; 83880; 84484; 85007; 85025; 93005; 94640; 96365; 99285; C9803; U0003; U0005

== ENCOUNTER → 2021-05-27 16:48 | Outpatient (CLI) | payer OTHER, SELFPAY ==
[2021-05-27 19:32] LABS: Alanine Aminotransferase 24 U/L (12-78); Albumin Level 4.1 g/dl (3.5-5.0); Albumin/Globulin Ratio 1.4 (1.1-1.8); Alkaline Phosphatase 95 U/L (38-126); Anion Gap 11.2 mEq/L (5-15); Aspartate Amino Transferase 37 U/L (17-59); Bilirubin,Total 0.8 mg/dl (0.2-1.3); Blood Urea Nitrogen 8 mg/dl (9-20); Calcium 9.3 mg/dl (8.4-10.2); Carbon Dioxide 32 mmol/L (22.0-30.0); Chloride 96 mmol/L (98-107); Estimated Glomerular Filt Rate 100 ml/min (>60); GFR (African American) 121 ML/MIN (>60); Globulin 2.9 g/dL (1.3-3.2); Glucose 144 mg/dl (74-100); Potassium 4.2 mmoL/L (3.5-5.1); Sodium 135 mmol/L (136-145)
[2021-05-27 21:55] LABS: Prostate Specific Ag Screen 0.9 ng/ml (0.0-4.0)
== END ==
PROVIDERS: PCP Family Medicine; Visit Provider Family Medicine
DX: I25.10 Atherosclerotic heart disease of native coronary artery without angina pectoris (principal); I10 Essential (primary) hypertension; E78.5 Hyperlipidemia, unspecified; E11.9 Type 2 diabetes mellitus without complications; Z79.4 Long term (current) use of insulin; Z12.5 Encounter for screening for malignant neoplasm of prostate
CPT/HCPCS: 71046; 80053; G0103

== ENCOUNTER 2021-07-30 18:43 | Inpatient (IN) | payer OTHER, SELFPAY ==
[2021-07-30] VITALS (7 sets, daily range): BP systolic 149–202; BP diastolic 74–103; PULSE 89–98; RESP 16–19; TEMP 36.6; O2SAT 91–95; BMI 28.7; BMI 32.9
[2021-07-30 19:01] LABS: POC Glucose,Bedside 158 (70-110)
--- NOTE | 2021-07-30 19:04 | ECG_ITS ---
APPROVED REPORT Exam: Resting ECG HR:91 bpm ECG Measurements Heart Rate 91 AXES [place] 162 P 40 QRSd 80 QRS 28 QT 370 T 55 QTc 455 Conclusion Normal sinus rhythm Possible Left atrial enlargement Borderline ECG Electronically signed by : Abraham Hernandez MD 08/01/2021 13:45:02
[2021-07-30 19:31] LABS: Basophils # 0.1 K/mm3 (0-0.2); Eosinophils # 0.1 K/mm3 (0.0-0.4); Eosinophils % 0.7 % (0.1-12.0); Hematocrit 52.9 % (42.0-52.0); Lymphocytes # 1.5 K/mm3 (0.7-4.5); Lymphocytes % 16.7 % (10-50); Mean Corpuscular HGB Conc 32.1 g/dL (31.8-35.4); Mean Corpuscular Volume 93.2 fl (80-94); Mean Platelet Volume 8.3 fl (7.4-10.4); Monocytes # 0.5 K/mm3 (0.1-1.0); Monocytes % 5.7 % (1.7-9.3); Neutrophils # 6.7 K/mm3 (1.8-7.8); Neutrophils % 75.8 % (37.0-80.0); Platelet Count 267 K/mm3 (142-424); Red Blood Count 5.68 M/mm3 (4.60-6.20); Red Cell Distribution Width 14.9 % (11.5-17.5); White Blood Count 8.8 K/mm3 (4.8-10.8)
[2021-07-30 19:36] LABS: Microscopic, Urine URINE MICROSCOPIC (MICROSCOPIC)
[2021-07-30 19:36] LABS: Influenza A, PCR Not Detected (NotDetected); Influenza B, PCR Not Detected (NotDetected)
--- NOTE | 2021-07-30 19:38 | XR_ITS ---
PROCEDURE INFORMATION: Exam: XR Chest Exam date and time: 07/30/2021 7:38 PM Age: 55 years old Clinical indication: Cough TECHNIQUE: Imaging protocol: XR of the chest. Views: 1 view. Total images: 1 COMPARISON: CR XR CHEST 2V 05/27/2021 4:56 PM FINDINGS: Tubes, catheters and devices: Spinal stimulator leads in the midthoracic distribution without gross complication or change. Lungs: Normal pulmonary expansion. Pulmonary vasculature grossly normal. Suspect mild alveolar opacities in the left perihilar and right infrahilar distribution which could represent perihilar pneumonia or atelectasis. Pleural spaces: No pleural effusion. No pneumothorax. Heart/Mediastinum: Heart size normal. No tracheal/mediastinal shift. Bones/joints: No acute osseous abnormalities are identified. IMPRESSION: Suspect mild bilateral perihilar alveolar opacities concerning for pneumonia or subsegmental atelectasis.
--- NOTE | 2021-07-30 19:38 | CT_ITS ---
PROCEDURE INFORMATION: Exam: CT Head Without Contrast Exam date and time: 07/30/2021 7:38 PM Age: 55 years old Clinical indication: Altered mental status/memory loss TECHNIQUE: Imaging protocol: Computed tomography of the head without contrast. Total images: 279 Radiation optimization: All CT scans at this facility use at least one of these dose optimization techniques: automated exposure control; mA and/or kV adjustment per patient size (includes targeted exams where dose is matched to clinical indication); or iterative reconstruction. COMPARISON: CT HEAD/BRAIN WO CON 05/17/2021 11:00 AM FINDINGS: Brain: Mild-moderate generalized atrophy. Mild bilateral white matter hypodensities which are nonspecific but most commonly associated with chronic microvascular ischemia in this age group. No extra-axial fluid collections. No evidence of acute intracranial hemorrhage. Powers-white differentiation is well maintained. No CT evidence of large territory acute or subacute intracranial ischemia/infarct. No intracranial mass lesions. No midline shift or herniation. Cerebral ventricles: Mild compensatory ventriculomegaly secondary to central atrophy. Paranasal sinuses: Visualized paranasal sinuses are clear. Small right maxillary sinus suggesting chronic changes of prior sinusitis. Mastoid air cells: Visualized mastoid air cells are clear. Orbital cavity: Visualized orbital contents demonstrate no acute abnormality. Vasculature: Moderate calcific atherosclerosis. No asymmetric vascular hyperdensities suggestive of thrombosis are identified. Bones/joints: The calvarium and visualized facial bones are intact. Soft tissues: The scalp and visualized soft tissues demonstrate no acute abnormality. Other findings: The IACs are grossly normal. The sella is grossly normal. IMPRESSION: 1. No acute intracranial process. No intracranial hemorrhage or mass effect. 2. Atrophy and chronic microvascular changes consistent with age. 3. Moderate calcific atherosclerosis.
--- NOTE | 2021-07-30 19:43 | HMH.EDAMS ---
ED Disposition Condition on Discharge: Serious - Critical Care Critical Care Time: No <BorisDustin - Last Filed: 07/30/21 19:43> Condition on Discharge: Fair Time of Disposition: 21:17 - Critical Care Critical Care Time: No <Kenya Mendez - Last Filed: 07/30/21 21:20> Clinical Impression: Delirium due to general medical condition, Encephalopathy, COVID-19 Altered mental status Qualifiers: Altered mental status type: unspecified Qualified Code(s): R41.82 - Altered mental status, unspecified Disposition: Still a Patient Instructions: DI for Altered Mental Status Referrals: Ed Cavazos MD [Primary Care Provider] - Attestation: On 07/30/21, the high probability of a clinically significant, sudden or life threatening deterioration of the following system(s) required my full and direct attention, intervention and personal management. The time I documented below is in addition to time spent performing reported procedures but includes the following listed in this critical care notation. Medical Decision Making - Medical Records Medical records reviewed: Yes: I reviewed the patient's medical records. - Radu Inquiry Pt receiving controlled substance: No - ECG Data Tracing #1 I reviewed this ECG and interpreted as documented below: ECG initial impression date: 07/30/21 ECG initial impression time: 19:04 <BorisDustin - Last Filed: 07/30/21 19:43> - Lab Data Result diagrams: 07/30/21 19:14 07/30/21 19:14 - CT Data CT Scan: Head Time Received: 21:[address] Reviewed: Yes: I have reviewed the patient's CT results, I have viewed the radiologist's interpretation <Kenya Mendez - Last Filed: 07/30/21 21:20> Vital Signs: 07/30/21 18:51 07/30/21 19:09 07/30/21 19:12 Temperature 97.9 F Temperature Source Oral Pulse Rate 90 89 Respiratory Rate 19 Blood Pressure 202/103 H 161/102 H 02 Sat by Pulse Oximetry 95 93 L 94 L Oxygen Delivery Method Room Air 07/30/21 19:30 07/30/21 20:01 Temperature Temperature Source Pulse Rate 98 H 91 H Respiratory Rate Blood Pressure 186/100 H 152/74 H 02 Sat by Pulse Oximetry 94 L 91 L Oxygen Delivery Method - Lab Data Lab Results 07/30/21 18:54: POC Glucose 158 H 07/30/21 19:14: WBC 8.8, RBC 5.68, Hgb 17.0, Hct 52.9 H, MCV 93.2, MCH 30.0, MCHC 32.1, RDW 14.9, Plt Count 267, MPV 8.3, Neut % (Auto) 75.8, Lymph % (Auto) 16.7, [place] % (Auto) 5.7, Eos % (Auto) 0.7, Baso % (Auto) 1.0, Neut # (Auto) 6.7, Lymph # (Auto) 1.5, [place] # (Auto) 0.5, Eos # (Auto) 0.1, Baso # (Auto) 0.1 07/30/21 19:14: Sodium 136, Potassium 3.3 L, Chloride 96 L, Carbon Dioxide 29, Anion Gap 14.3, BUN 19, Creatinine 0.90, Estimated Creat Clear 118, Estimated GFR 87, Est GFR ( Amer) 106, Glucose 169 H, Calcium 9.9, Total Bilirubin 1.3, AST 62 H, ALT 41, Alkaline Phosphatase 214 H, Troponin I < 0.01, Total Protein 7.8, Albumin 4.4, Globulin 3.4 H, Albumin/Globulin Ratio 1.3 07/30/21 19:14: Lactate 0.8 07/30/21 19:14: PT 12.3, INR 1.10, APTT 29.7 07/30/21 19:14: NT-Pro-B Natriuret Pep 52.1, Salicylates < 1.0 L, Acetaminophen < 10 L, Acetone Level Large 07/30/21 19:27: SARS-CoV-2 (PCR) Detected A, Influenza A Untype (PCR) Not detected, Influenza Type B (PCR) Not detected 07/30/21 19:29: Urine Color Brown, Urine Appearance Cloudy, Urine pH 5.5, Ur Specific [place] >= 1.030, Urine Protein 3+, Urine Glucose (UA) Trace, Urine Ketones Trace, Urine Blood Trace-i, Urine Nitrate Positive, Urine Bilirubin 3+ A, Urine Urobilinogen 2.0, Ur Leukocyte Esterase Negative, Urine RBC 10-20, Urine WBC 5-10, Ur Squamous Epith Cells 3-5, Urine Bacteria 3+ 07/30/21 19:29: Urine Opiates Screen Negative, Urine Methadone Screen Negative, Ur Barbituates Screen Negative, Ur Phencyclidine Scrn Negative, Ur Amphetamines Screen Negative, U Benzodiazepines Scrn Negative, Urine Cocaine Screen Negative, U Marijuana (THC) Screen Negative 07/30/21 19:29: Plasma/Serum Alcohol < 10 07/30/21 19:37: Specim
[2021-07-30 19:46] LABS: Alanine Aminotransferase 41 U/L (12-78); Albumin Level 4.4 g/dl (3.5-5.0); Albumin/Globulin Ratio 1.3 (1.1-1.8); Alkaline Phosphatase 214 U/L (38-126); Anion Gap 14.3 mEq/L (5-15); Aspartate Amino Transferase 62 U/L (17-59); Bilirubin,Total 1.3 mg/dl (0.2-1.3); Blood Urea Nitrogen 19 mg/dl (9-20); Calcium 9.9 mg/dl (8.4-10.2); Carbon Dioxide 29 mmol/L (22.0-30.0); Chloride 96 mmol/L (98-107); Creatinine Clearance Estimated 118 mL/min (50-200); Estimated Glomerular Filt Rate 87 ml/min (>60); GFR (African American) 106 ML/MIN (>60); Globulin 3.4 g/dL (1.3-3.2); Glucose 169 mg/dl (74-100); Lactic Acid 0.8 mmol/L (0.7-2.1); Potassium 3.3 mmoL/L (3.5-5.1); Sodium 136 mmol/L (136-145); Total Protein,Serum 7.8 g/dl (6.3-8.2)
[2021-07-30 19:53] LABS: Activated Partial Thrombo Time 29.7 seconds (22.8-30.6); Prothrombin Time 12.3 seconds (10.1-12.5)
--- NOTE | 2021-07-30 19:53 | PC.NURSE ---
pt to rad
[2021-07-30 19:57] LABS: Acetaminophen < 10 ug/ml (10-30); Salicylate < 1.0 mg/dL (2.0-20.0)
[2021-07-30 19:59] LABS: Troponin I < 0.01 ng/ml (0.00-0.034)
[2021-07-30 20:04] LABS: Amphetamine/Metha Screen,Urine Negative ng/ml (<1000)
[2021-07-30 20:05] LABS: Barbiturates Screen,Urine Negative ng/ml (<200)
[2021-07-30 20:06] LABS: NT Pro Brain Natriuretic Pep. 52.1 pg/mL (0-125)
[2021-07-30 20:06] LABS: Benzodiazepines Screen,Urine Negative ng/ml (<200); Cannabinoid Screen,Urine Negative ng/ml (<50)
[2021-07-30 20:07] LABS: Cocaine Screen,Urine Negative ng/ml (<300)
[2021-07-30 20:08] LABS: Methadone Screen,Urine Negative ng/ml (<300); Opiate Screen,Urine Negative ng/ml (<300)
[2021-07-30 20:09] LABS: Phencyclidine Screen,Urine Negative ng/ml (<25)
[2021-07-30 20:24] LABS: Ethyl Alcohol < 10 mg/dl (0-10)
[2021-07-30 20:27] LABS: Coronavirus 19, PCR Detected (NotDetected)
[2021-07-30 20:27] LABS: ABG HCO3 26.1 mmhg (22.0-26.0); ABG Oxygen Saturation 94 % (90-100); ABG PCO2 44.6 mmhg (35.0-45.0); ABG PH 7.39 mmol/L (7.35-7.45); ABG PO2 68.3 mmhg (80-100); ABG TCO2 27.5 mmhg (23-27)
[2021-07-30 20:28] LABS: Allen's Test Acceptable; Oxygen RA %; Source Left Radial
[2021-07-30 20:28] LABS: Acetone, Serum (Rapid) Large (None Detect)
[2021-07-30 20:34] LABS: Ammonia 13 umol/L (9-30)
[2021-07-30 20:51] LABS: Appearance,Urine CLOUDY (Clear); Blood, Urine TRACE-I (Negative); Color,Urine BROWN (Yellow); Glucose,Urine (UA) TRACE (Negative); Ketones,Urine TRACE (Negative); Leukocyte Esterase,Urine Negative (Negative); Nitrate,Urine POSITIVE (Negative); PH,Urine 5.5 (5.0-8.5); Protein,Urine 3+ (Negative); Specific Gravity, Urine >= 1.030 (1.005-1.030)
[2021-07-30 21:06] LABS: Bilirubin,Urine 3+ (Negative)
[2021-07-30 21:08] LABS: Bacteria,Urine 3+ /lpf
--- NOTE | 2021-07-30 21:59 | PC.NURSE ---
PT ARRIVED TO FLOOR VIA W/C FROM ED W/STAFF @ 2200
[2021-07-31] VITALS (7 sets, daily range): BP systolic 149–188; BP diastolic 62–99; PULSE 68–103; RESP 14–20; TEMP 36.6–37.2; O2SAT 92–98; BMI 32.8
--- NOTE | 2021-07-31 02:27 | PC.NURSE ---
Patient is unable to answer admission questions at this time. Patient alert to Name, , & president.
[2021-07-31 02:42] LABS: POC Glucose,Bedside 143 (70-110)
--- NOTE | 2021-07-31 06:18 | HMH.HP ---
*Admission Date: 07/30/21 *Chief complaint: covid, altered mental status *History of present illness: Patient is a 55-year-old white male, well-known to me, presented to the office with confusion, altered mental status. Most of the history is obtained from his ex-. 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 He lives at home with his mother who had noticed some confusion earlier in the day. Patient had already been dressed, attempted to put on a second pair of pants and seemed confused as he was getting ready for work. He later spent the day in bed. Patient has a longstanding history of diabetes, marginal control. He may have missed a few doses of insulin, p.o. intake is likely been diminished. Patient was sent to the emergency room prior to admission for evaluation. He was found to be COVID-positive. Lab work showed a concentrated urine with a few WBCs. Psychology was unremarkable. CT of the brain showed some diffuse atherosclerotic changes doubt anything acute. Chest film showed hazy opacities without significant consolidation. Patient was admitted for further evaluation and treatment. Clinically his mentation improved in the emergency room, he continues to improve this morning. He is arousable, alert and clear. Patient has history of coronary artery disease, status post stent deployment. History of diabetes with marginal control. 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 History of cervical and lumbar spinal surgery, history of stimulator implant, history of intractable chronic back pain requiring long-term analgesics. He is functional on his regimen. [facility] History Medical History: Reports:: Anxiety, Congenital Heart Disease, Coronary Artery Disease, Depression, Diabetes Mellitus Type 2, Gastroesophageal Reflux Disease(GERD), Hyperlipidemia, Hypertension Denies:: Cancer, Diabetes Mellitus Type 1, MRSA *Have you ever received a pneumonia vaccine?: Yes *Have you received a flu vaccine this season?: No Other Surgeries: Yes: Cardiac Catheterization, Coronary Stent Amputation: No Fractures: Yes (RT wrist) - *Social History Smoking Status: Current every day smoker Tobacco Type: cigarettes # Packs/Day (cigarettes): 1 #Yrs smoked (if former smoker): 20 Alcohol Intake: current Alcohol Intake Frequency:: a few times a month Substance Use Type: denies use *Occupational Status:: employed Housing: house Household Members: spouse *Travel in the last 8 weeks: None - Psychiatric History Pschychiatric History:: Reports:: Anxiety, Depression Family Hx:: Unable to obtain Review of Systems - Constitutional Reports anorexia, Reports lack of energy - Eyes Denies change in vision - ENT Denies abnormal hearing - *Cardiovascular Reports shortness of breath with activity, Denies chest pain - *Respiratory Reports chest congestion - *Gastrointestinal Denies abdominal pain - *Genitourinary Denies difficulty urinating - *Musculoskeletal Reports abnormal walking, Reports muscle weakness, Reports body aches - Integumentary/Breasts Denies yellowing of the skin - *Neurologic Reports confusion, Reports unsteadiness, Reports weakness, Denies seizure-like activity - Psychiatric Reports behavioral changes, Reports confusion - Endocrine Denies cold intolerance, Denies excessive sweating, Denies increased thirst, Denies increased hunger - Hematologic/Lymphatic Denies easy bleeding - Allergic/Immunologic Denies hives Meds Home Medications Medication Instructions Recorded Confirmed Type Aspirin [Low Dose Aspirin EC] 81 mg PO DAILY 05/17/21 07/30/21 History Fenofibrate Nanocrystallized 145 mg PO DAILY 05/17/21 07/30/21 History [Fenofibrate] Gabapentin 600 mg PO QID 05/17/21 07/30/21 History Insulin Glargine/Lixisenatide 25 unit SQ DAILY 05/17/21 07/30/21 History [Soliqua 100 Unit-33 Mcg/ml Pen] Omeprazole 20 mg PO BID 05/17/21 07/30/21 History Rosuvasta
--- NOTE | 2021-07-31 07:00 | XR_ITS ---
PROCEDURE INFORMATION: Exam: XR Chest Exam date and time: 07/31/2021 7:00 AM Age: 55 years old Clinical indication: Condition or disease; Lung condition and disease; Pneumonia and other: Covid TECHNIQUE: Imaging protocol: XR of the chest. Views: 1 view. COMPARISON: CR XR CHEST PORTABLE 07/30/2021 7:45 PM FINDINGS: Tubes, catheters and devices: Thoracic nerve stimulator is in place. Lungs: Slightly improved perihilar airspace opacities. Pleural spaces: Unremarkable. No pleural effusion. No pneumothorax. Heart/Mediastinum: Cardiomediastinal silhouette is within normal limits. Bones/joints: Partially imaged ACDF hardware in the cervical spine. IMPRESSION: Slightly improved perihilar airspace opacities.
[2021-07-31 07:14] LABS: POC Glucose,Bedside 143 (70-110)
[2021-07-31 07:18] LABS: Basophils # 0.1 K/mm3 (0-0.2); Basophils % 0.9 % (0.1-2.0); Eosinophils # 0.1 K/mm3 (0.0-0.4); Eosinophils % 0.6 % (0.1-12.0); Hematocrit 50.4 % (42.0-52.0); Hemoglobin 16.3 g/dL (14.1-18.0); Lymphocytes # 1.7 K/mm3 (0.7-4.5); Lymphocytes % 20.6 % (10-50); Mean Corpuscular HGB Conc 32.3 g/dL (31.8-35.4); Mean Corpuscular Hemoglobin 30.3 pg (27.0-31.2); Mean Corpuscular Volume 93.6 fl (80-94); Mean Platelet Volume 8.2 fl (7.4-10.4); Monocytes # 0.6 K/mm3 (0.1-1.0); Monocytes % 7.6 % (1.7-9.3); Neutrophils # 5.7 K/mm3 (1.8-7.8); Neutrophils % 70.3 % (37.0-80.0); Platelet Count 229 K/mm3 (142-424); Red Blood Count 5.38 M/mm3 (4.60-6.20); Red Cell Distribution Width 14.9 % (11.5-17.5); White Blood Count 8.2 K/mm3 (4.8-10.8)
[2021-07-31 07:26] LABS: Alanine Aminotransferase 38 U/L (12-78); Albumin Level 4.2 g/dl (3.5-5.0); Albumin/Globulin Ratio 1.4 (1.1-1.8); Alkaline Phosphatase 188 U/L (38-126); Anion Gap 13.2 mEq/L (5-15); Aspartate Amino Transferase 59 U/L (17-59); Bilirubin,Total 1.1 mg/dl (0.2-1.3); Blood Urea Nitrogen 24 mg/dl (9-20); Calcium 9.8 mg/dl (8.4-10.2); Carbon Dioxide 30 mmol/L (22.0-30.0); Chloride 97 mmol/L (98-107); Creatinine Clearance Estimated 152 mL/min (50-200); Estimated Glomerular Filt Rate 100 ml/min (>60); GFR (African American) 121 ML/MIN (>60); Globulin 3.1 g/dL (1.3-3.2); Glucose 154 mg/dl (74-100); Potassium 3.2 mmoL/L (3.5-5.1); Sodium 137 mmol/L (136-145); Total Protein,Serum 7.3 g/dl (6.3-8.2)
--- NOTE | 2021-07-31 07:55 | P.CONPHA_ITS ---
[facility] Pharmacy VTE Monitoring - Patient Demographics Admission date: 07/31/21 Report Date: 07/31/21 Time: 07:55 Allergies/Adverse Reactions: Patient Allergies No Known Allergies Allergy (Verified 07/30/21 17:34) Height: 1.78 m Weight: 104.326 kg Patient Problems: Current Active Problems Dehydration (Acute) Pneumonia (Acute) Altered mental status (Acute) Delirium due to general medical condition (Acute) Encephalopathy (Acute) COVID-19 (Acute) Sacral nerve stimulator present (Chronic) Chronic back pain greater than 3 months duration (Chronic) Diabetes (Chronic) CAD (coronary artery disease) (Chronic) Stented coronary artery (Chronic) - VTE Risk Labs: VTE Related Lab Results Hgb 16.3 g/dL (14.1-18.0) 07/31/21 06:45 Hct 50.4 % (42.0-52.0) 07/31/21 06:45 Plt Count 229 K/mm3 (142-424) 07/31/21 06:45 PT 12.3 seconds (10.1-12.5) 07/30/21 19:14 INR 1.10 (0.9-1.1) 07/30/21 19:14 APTT 29.7 seconds (22.8-30.6) 07/30/21 19:14 BUN 24 mg/dl (9-20) H D 07/31/21 06:45 Creatinine 0.80 mg/dl (0.66-1.25) 07/31/21 06:45 Estimated Creat Clear 152 mL/min (50-200) 07/31/21 06:45 Was VTE Risk Assessment Performed: Yes VTE Score: 2 VTE Risk Level: Very Low Risk Clinical Trial Participant: No - Prophylaxis VTE Prophylaxis Ordered?: Yes Types of VTE Prophylaxis: TEDS Knee High, Pharmacological Pharmacologic Type: Enoxaparin
--- NOTE | 2021-07-31 09:28 | HMH.PULMCON ---
*Admission Date: 07/31/21 *History of present illness: Mr. Traore is a 55-year-old male never smoker, no prior respiratory complaints no personal history of members of allergies or asthma presented to the hospital with altered mentation and found to be positive for COVID-19 PCR and pulmonary was called for further management. [facility] History Medical History: Reports:: Anxiety, Congenital Heart Disease, Coronary Artery Disease, Depression, Diabetes Mellitus Type 2, Gastroesophageal Reflux Disease(GERD), Hyperlipidemia, Hypertension Denies:: Cancer, Diabetes Mellitus Type 1, MRSA *Have you ever received a pneumonia vaccine?: Yes *Have you received a flu vaccine this season?: No Other Surgeries: Yes: Cardiac Catheterization, Coronary Stent Amputation: No Fractures: Yes (RT wrist) - *Social History Smoking Status: Current every day smoker Tobacco Type: cigarettes # Packs/Day (cigarettes): 1 #Yrs smoked (if former smoker): 20 Alcohol Intake: current Alcohol Intake Frequency:: a few times a month Substance Use Type: denies use *Occupational Status:: employed Housing: house Household Members: spouse *Travel in the last 8 weeks: None - Psychiatric History Pschychiatric History:: Reports:: Anxiety, Depression Family Hx:: Unable to obtain ROS - Review of Systems Limited, patient altered and confused - Cons Denies body ache(s) - ENT Denies bleeding gums - Card Denies shortness of breath, Denies shortness of breath with activity - Resp Respiratory: Denies shortness of breath, Denies chest congestion, Denies cough, Denies non-productive cough, Denies dyspnea, Denies dyspnea on exertion, Denies cough with sputum production - GI Gastrointestingal: Denies: abdominal pain Meds Home Medications Medication Instructions Recorded Confirmed Type Aspirin [Low Dose Aspirin EC] 81 mg PO DAILY 05/17/21 07/30/21 History Fenofibrate Nanocrystallized 145 mg PO DAILY 05/17/21 07/30/21 History [Fenofibrate] Gabapentin 600 mg PO QID 05/17/21 07/30/21 History Insulin Glargine/Lixisenatide 25 unit SQ DAILY 05/17/21 07/30/21 History [[place] 100 Unit-33 Mcg/ml Pen] Omeprazole 20 mg PO BID 05/17/21 07/30/21 History Rosuvastatin Calcium 20 mg PO HS 05/17/21 07/31/21 History Sertraline HCl [Zoloft] 50 mg PO DAILY 05/17/21 07/30/21 History oxycodone-acetaminophen 10 mg-325 1 tab PO QID PRN #120 tab 06/25/21 07/30/21 Rx mg tablet carvediloL [Coreg 12.5mg 12.5 mg PO BID 07/30/21 07/30/21 History Tablet] Allergies Allergy/AdvReac Type Severity Reaction Status Date / Time No Known Allergies Allergy Verified 07/30/21 17:34 Exam - Constitutional Constitutional:: Present: no acute distress, comfortable - HENMT Exam HENMT: Present: normocephalic, atraumatic - Eye Exam Eyes:: Present: normal appearance both eyes and related structures - Neck Exam Neck:: Present: normal visual inspection - Respiratory Exam Respiratory:: Present: able to speak in complete sentences, no respiratory distress, normal respiratory effort. Absent: crackles, rhonchi, wheezing - Cardiovascular Exam Cardiac:: Present: S1, S2 - GI Exam GI:: Present: soft - Skin Exam Skin: Present: warm, no rash - Neurological Exam Neurological: Present: awake, normal speech. Absent: alert, normal cognition, oriented X3 - Extremities Exam Extremities: Present: no cyanosis, no clubbing, no edema Internal Medicine - CN: Reslt - Labs CBC & Chem 7: 07/31/21 10:49 07/31/21 13:10 Labs: Short CBC 07/30/21 07/31/21 Range/Units 19:14 06:45 WBC 8.8 8.2 (4.8-10.8) K/mm3 Hgb 17.0 16.3 (14.1-18.0) g/dL Hct 52.9 H 50.4 (42.0-52.0) % Plt Count 267 229 (142-424) K/mm3 BMP 07/30/21 07/31/21 19:14 06:45 Sodium 136 137 Potassium 3.3 L 3.2 L Chloride 96 L 97 L Carbon Dioxide 29 30 BUN 19 24 H D Creatinine 0.90 0.80 Glucose 169 H 154 H Calcium 9.9 9.8 Cardiac Enzymes 07/30/21 Range/Unit
[2021-07-31 10:01] LABS: C-Reactive Protein 15.4 mg/L (0-4)
--- NOTE | 2021-07-31 10:02 | HMH.PHAINT ---
HOME MEDICATION LIST VERIFIED USING LIST FROM DR. KEARNS'S OFFICE
--- NOTE | 2021-07-31 10:24 | HMH.ACPN2 ---
Internal Medicine - PN: Subj *Date: 07/31/21 *Time: 09:10 Interval history: pt confused by answers questions when asked. states nausea and diarrhea Exam Vital signs and Labs for Last 24 Hours: Temp Pulse Resp BP Pulse Ox 97.8 F 103 H 16 166/95 H 92 L 07/31/21 08:00 07/31/21 08:00 07/31/21 08:00 07/31/21 08:00 07/31/21 08:00 Laboratory Results - last 24 hr 07/30/21 18:54: POC Glucose 158 H 07/30/21 19:14: WBC 8.8, RBC 5.68, Hgb 17.0, Hct 52.9 H, MCV 93.2, MCH 30.0, MCHC 32.1, RDW 14.9, Plt Count 267, MPV 8.3, Neut % (Auto) 75.8, Lymph % (Auto) 16.7, [place] % (Auto) 5.7, Eos % (Auto) 0.7, Baso % (Auto) 1.0, Neut # (Auto) 6.7, Lymph # (Auto) 1.5, [place] # (Auto) 0.5, Eos # (Auto) 0.1, Baso # (Auto) 0.1 07/30/21 19:14: Sodium 136, Potassium 3.3 L, Chloride 96 L, Carbon Dioxide 29, Anion Gap 14.3, BUN 19, Creatinine 0.90, Estimated Creat Clear 118, Estimated GFR 87, Est GFR ( Amer) 106, Glucose 169 H, Calcium 9.9, Total Bilirubin 1.3, AST 62 H, ALT 41, Alkaline Phosphatase 214 H, Troponin I < 0.01, Total Protein 7.8, Albumin 4.4, Globulin 3.4 H, Albumin/Globulin Ratio 1.3 07/30/21 19:14: Lactate 0.8 07/30/21 19:14: PT 12.3, INR 1.10, APTT 29.7 07/30/21 19:14: NT-Pro-B Natriuret Pep 52.1, Salicylates < 1.0 L, Acetaminophen < 10 L, Acetone Level Large 07/30/21 19:27: SARS-CoV-2 (PCR) Detected A, Influenza A Untype (PCR) Not detected, Influenza Type B (PCR) Not detected 07/30/21 19:29: Urine Color Brown, Urine Appearance Cloudy, Urine pH 5.5, Ur Specific [place] >= 1.030, Urine Protein 3+, Urine Glucose (UA) Trace, Urine Ketones Trace, Urine Blood Trace-i, Urine Nitrate Positive, Urine Bilirubin 3+ A, Urine Urobilinogen 2.0, Ur Leukocyte Esterase Negative, Urine RBC 10-20, Urine WBC 5-10, Ur Squamous Epith Cells 3-5, Urine Bacteria 3+ 07/30/21 19:29: Urine Opiates Screen Negative, Urine Methadone Screen Negative, Ur Barbituates Screen Negative, Ur Phencyclidine Scrn Negative, Ur Amphetamines Screen Negative, U Benzodiazepines Scrn Negative, Urine Cocaine Screen Negative, U Marijuana (THC) Screen Negative 07/30/21 19:29: Plasma/Serum Alcohol < 10 07/30/21 19:37: Specimen Source Left radial, O2 % Ra, ABG pH 7.39, ABG pCO2 44.6, ABG pO2 68.3 L, ABG HCO3 26.1 H, ABG Total CO2 27.5 H, ABG O2 Saturation 94, ABG Base Excess 1.0, Jaime Test Acceptable 07/30/21 20:17: Ammonia 13 07/31/21 02:35: POC Glucose 143 H 07/31/21 06:45: WBC 8.2, RBC 5.38, Hgb 16.3, Hct 50.4, MCV 93.6, MCH 30.3, MCHC 32.3, RDW 14.9, Plt Count 229, MPV 8.2, Neut % (Auto) 70.3, Lymph % (Auto) 20.6, [place] % (Auto) 7.6, Eos % (Auto) 0.6, Baso % (Auto) 0.9, Neut # (Auto) 5.7, Lymph # (Auto) 1.7, [place] # (Auto) 0.6, Eos # (Auto) 0.1, Baso # (Auto) 0.1 07/31/21 06:45: Sodium 137, Potassium 3.2 L, Chloride 97 L, Carbon Dioxide 30, Anion Gap 13.2, BUN 24 H D, Creatinine 0.80, Estimated Creat Clear 152, Estimated GFR 100, Est GFR ( Amer) 121, Glucose 154 H, Calcium 9.8, Total Bilirubin 1.1, AST 59, ALT 38, Alkaline Phosphatase 188 H, Total Protein 7.3, Albumin 4.2, Globulin 3.1, Albumin/Globulin Ratio 1.4 07/31/21 06:45: C-Reactive Protein 15.4 H 07/31/21 06:47: POC Glucose 143 H I & O for Last 24 hours: Intake & Output 07/28/21 07/29/21 07/30/21 07/31/21 11:59 11:59 11:59 11:59 Intake Total 120 / 120 Output Total 0 / 0 Balance 120 / 120 Weight 230 lb - Constitutional no acute distress - *Routine HEENT Exam Head: Present: normocephalic Eye: Present: PERRL ENT: Present: mucous membranes moist - *Routine Neck Exam Present: supple. Absent: lymphadenopathy - *Routine Respiratory Exam Present: rhonchi - *Routine Cardiovascular Exam Present: RRR - *Routine Abdominal Exam Present: soft, normoactive bowel sounds. Absent: tenderness - *Routine Extremities Exam Absent: cyanosis, clubbing, edema - *Routine Skin Exam Present: warm. Absent: rash - *Routine Neurological Exam Present: altered mental status Assessment and Plan (1) Altered
[2021-07-31 11:12] LABS: Anion Gap 14.7 mEq/L (5-15); Blood Urea Nitrogen 26 mg/dl (9-20); Calcium 9.7 mg/dl (8.4-10.2); Carbon Dioxide 26 mmol/L (22.0-30.0); Chloride 97 mmol/L (98-107); Creatinine Clearance Estimated 152 mL/min (50-200); Estimated Glomerular Filt Rate 100 ml/min (>60); GFR (African American) 121 ML/MIN (>60); Glucose 218 mg/dl (74-100); Potassium 3.7 mmoL/L (3.5-5.1); Sodium 134 mmol/L (136-145)
[2021-07-31 11:15] LABS: Ammonia 17 umol/L (9-30)
[2021-07-31 11:48] LABS: POC Glucose,Bedside 206 (70-110)
[2021-07-31 11:56] LABS: Basophils % 0.3 % (0.1-2.0); Eosinophils % 0.2 % (0.1-12.0); Hematocrit 51.8 % (42.0-52.0); Hemoglobin 16.5 g/dL (14.1-18.0); Lymphocytes # 0.8 K/mm3 (0.7-4.5); Lymphocytes % 9.5 % (10-50); Mean Corpuscular HGB Conc 31.8 g/dL (31.8-35.4); Mean Corpuscular Hemoglobin 30.2 pg (27.0-31.2); Mean Corpuscular Volume 94.9 fl (80-94); Mean Platelet Volume 8.8 fl (7.4-10.4); Monocytes # 0.2 K/mm3 (0.1-1.0); Monocytes % 2.8 % (1.7-9.3); Neutrophils # 7.5 K/mm3 (1.8-7.8); Neutrophils % 87.3 % (37.0-80.0); Platelet Count 232 K/mm3 (142-424); Red Blood Count 5.46 M/mm3 (4.60-6.20); White Blood Count 8.6 K/mm3 (4.8-10.8)
[2021-07-31 12:00] LABS: MANUAL DIFFERENTIAL MANUAL DIFFERENTIAL (MANUAL DIFF)
[2021-07-31 12:26] LABS: Acetone, Serum (Rapid) Moderate (None Detect)
--- NOTE | 2021-07-31 12:31 | PC.NURSE ---
Addendum entered by Giulia Sadler RN 07/31/21 13:58: RADIOLOGY CALLED AND STATED PT WAS REFUSING TO LET THEM COMPLETE THE CT WITH CONTRAST. WHEN PT ARRIVED BACK TO THE FLOOR AND WAS ASKED WHY HE REFUSED TO LET RADIOLOGY FINISH THE CT HIS RESPONSE WAS I DON'T KNOW . PT WAS ASKED IF HE REMEMBERED GOING DOWNSTAIRS FOR THE CT AND HE STATED AGAIN I DON'T KNOW . PT IS BEING TRANSPORTED TO [facility] NOW. REPORT HANDOFF TO CLAU VASQUEZ RN. Original Note: [facility] CALLED AND STATED PT WOULD NEED TO TRANSFER TO [facility] AND HE WILL NEED TO BE STARTED ON AN INSULIN DRIP DUE TO MODERATE ACETONE. PT HAS BEEN VERY ALTERED THIS SHIFT. PT IS AWARE HE IS CONFUSED AND VERY SLOW TO RESPOND WHEN ASKED SIMPLE QUESTIONS. PT HAS HAD 2 INCONTINENT BOWEL MOVEMENTS SO FAR THIS MORNING. ONE OF WHICH PT WAS TRYING TO MAKE IT TO THE BATHROOM AND HAD AN ACCIDENT ON HIMSELF AND IN THE FLOOR. LUNG SOUNDS CLEAR. ABDOMEN SOFT/NON TENDER WITH ACTIVE BOWEL SOUNDS. PT DID NOT EAT BREAKFAST THIS MORNING BUT HAS TAKEN A FEW BITES OF LUNCH. DRINKING WELL. WILL CONTINUE TO MONITOR.
[2021-07-31 12:50] LABS: Lymphocytes % 7 % (10-50); Monocytes % 2 % (2-9); Neutrophils % 91 % (42-76); Platelet Estimate Normal; RBC Morphology Normal; Total Cells Counted 100
--- NOTE | 2021-07-31 13:19 | CT_ITS ---
FINAL REPORT CLINICAL HISTORY: AMS FINDINGS: Axial images of the head were obtained without contrast. Coronal reformatted images were also obtained. This study was performed with techniques to keep radiation doses as low as reasonably achievable (ALARA). Individualized dose reduction techniques using automated exposure control or adjustment of mA and/or kV according to the patient''s size were employed. There is generalized age-appropriate atrophy. Periventricular low-attenuation areas are seen consistent with mild chronic ischemic changes. There is no evidence of intracranial hemorrhage or mass. There is no evidence of acute infarct. There is no evidence of shift of the midline structures. No skull abnormality is seen on the bone window images. IMPRESSION: Atrophy and mild periventricular chronic ischemic changes. No acute intracranial abnormality identified. Reviewed, Interpreted and Dictated by Víctor Lopez III, MD Transcribed by Michael Ramirez Authenticated by Víctor Lopez III, MD on 07/31/2021 02:20:42 PM [facility]
[2021-07-31 13:41] LABS: Anion Gap 12.6 mEq/L (5-15); Blood Urea Nitrogen 26 mg/dl (9-20); Calcium 9.3 mg/dl (8.4-10.2); Carbon Dioxide 27 mmol/L (22.0-30.0); Chloride 96 mmol/L (98-107); Creatinine Clearance Estimated 173 mL/min (50-200); Estimated Glomerular Filt Rate 117 ml/min (>60); GFR (African American) 141 ML/MIN (>60); Glucose 298 mg/dl (74-100); Potassium 3.6 mmoL/L (3.5-5.1); Sodium 132 mmol/L (136-145)
[2021-07-31 13:52] LABS: Acetone, Serum (Rapid) Small (None Detect)
--- NOTE | 2021-07-31 14:00 | PC.NURSE ---
pt arrived to [facility] unit room 263. On RA. Insulin gtt started @ 5units/hr based on dose initiation of 0.05units/kg/hr.
[2021-07-31 14:23] LABS: POC Glucose,Bedside 213 (70-110)
[2021-07-31 15:16] LABS: POC Glucose,Bedside 168 (70-110)
--- NOTE | 2021-07-31 15:28 | PC.NURSE ---
O2 sat hovering around 87% on RA. Pt able to follow commands and deep breathe and cough when asked. Non-productive cough noted. O2 sat increased to 90%. Placed 2L NC on pt and sat increased to 93%. Updated RT (Ashly Candelaria).
[2021-07-31 16:21] LABS: Anion Gap 11.3 mEq/L (5-15); Blood Urea Nitrogen 24 mg/dl (9-20); Calcium 9.5 mg/dl (8.4-10.2); Carbon Dioxide 29 mmol/L (22.0-30.0); Chloride 98 mmol/L (98-107); Creatinine Clearance Estimated 173 mL/min (50-200); Estimated Glomerular Filt Rate 117 ml/min (>60); GFR (African American) 141 ML/MIN (>60); Glucose 139 mg/dl (74-100); Potassium 3.3 mmoL/L (3.5-5.1); Sodium 135 mmol/L (136-145)
--- NOTE | 2021-07-31 18:00 | PC.NURSE ---
FSBS 102. Insulin gtt decreased by half and is now infusing @ 3 units/hr. Pt continues to be confused, only alert to name and . Has not voided since being in the COVID unit. States that he does not have to urinate when asked. Bed alarm has been on since 2pm as pt attempts to get OOB without assistance.
[2021-07-31 18:14] LABS: POC Glucose,Bedside 102 (70-110)
[2021-07-31 19:52] LABS: POC Glucose,Bedside 133 (70-110)
[2021-07-31 20:18] LABS: Anion Gap 8.2 mEq/L (5-15); Blood Urea Nitrogen 22 mg/dl (9-20); Calcium 9.3 mg/dl (8.4-10.2); Carbon Dioxide 31 mmol/L (22.0-30.0); Chloride 98 mmol/L (98-107); Creatinine Clearance Estimated 173 mL/min (50-200); Estimated Glomerular Filt Rate 117 ml/min (>60); GFR (African American) 141 ML/MIN (>60); Glucose 141 mg/dl (74-100); Potassium 3.2 mmoL/L (3.5-5.1); Sodium 134 mmol/L (136-145)
[2021-07-31 21:16] LABS: POC Glucose,Bedside 129 (70-110)
[2021-07-31 22:17] LABS: POC Glucose,Bedside 134 (70-110)
[2021-08-01] VITALS (7 sets, daily range): BP systolic 143–168; BP diastolic 42–79; PULSE 60–84; RESP 18–20; TEMP 36.3–37.1; O2SAT 90–97; BMI 31.9
[2021-08-01 00:25] LABS: POC Glucose,Bedside 143 (70-110)
[2021-08-01 00:41] LABS: Chloride 100 mmol/L (98-107)
[2021-08-01 00:42] LABS: Potassium 3.1 mmoL/L (3.5-5.1); Sodium 135 mmol/L (136-145)
[2021-08-01 00:44] LABS: Blood Urea Nitrogen 18 mg/dl (9-20); Creatinine Clearance Estimated 173 mL/min (50-200); Estimated Glomerular Filt Rate 117 ml/min (>60); GFR (African American) 141 ML/MIN (>60)
[2021-08-01 00:45] LABS: Anion Gap 7.1 mEq/L (5-15); Carbon Dioxide 31 mmol/L (22.0-30.0); Glucose 149 mg/dl (74-100)
[2021-08-01 01:03] LABS: Acetone, Serum (Rapid) None Detected (None Detect)
--- NOTE | 2021-08-01 01:50 | PC.NURSE ---
Serum Acetone none detected. Insulin gtt stopped.D5 NS changed to NS. MD consulted. New orders received to start pt on medium intensity SS. Change fluids to NS @ 100 ml/hr.
[2021-08-01 05:13] LABS: POC Glucose,Bedside 113 (70-110)
--- NOTE | 2021-08-01 06:00 | PC.NURSE ---
Pt is A&o x2 this AM. Somewhat confused about time. Has been up to use urinal x1 this shift. Total urine output is 300 ml for shift. Urine is tea colored and cloudy. FSBS was 113 this AM. 0 insulin administered. Pt is currently on RA at this time. O2 sats is in mid 90s. VSS. No other concerns. Will continue to monitor.
[2021-08-01 06:32] LABS: Basophils % 0.4 % (0.1-2.0); Eosinophils % 0.4 % (0.1-12.0); Hematocrit 46.2 % (42.0-52.0); Lymphocytes # 2.3 K/mm3 (0.7-4.5); Lymphocytes % 21.5 % (10-50); Mean Corpuscular HGB Conc 32.5 g/dL (31.8-35.4); Mean Corpuscular Hemoglobin 29.7 pg (27.0-31.2); Mean Corpuscular Volume 91.5 fl (80-94); Mean Platelet Volume 8.6 fl (7.4-10.4); Monocytes # 0.7 K/mm3 (0.1-1.0); Monocytes % 6.6 % (1.7-9.3); Neutrophils # 7.5 K/mm3 (1.8-7.8); Platelet Count 250 K/mm3 (142-424); Red Blood Count 5.05 M/mm3 (4.60-6.20); White Blood Count 10.5 K/mm3 (4.8-10.8)
[2021-08-01 06:53] LABS: Alanine Aminotransferase 35 U/L (12-78); Albumin Level 3.9 g/dl (3.5-5.0); Albumin/Globulin Ratio 1.3 (1.1-1.8); Alkaline Phosphatase 173 U/L (38-126); Anion Gap 10.8 mEq/L (5-15); Aspartate Amino Transferase 59 U/L (17-59); Bilirubin,Total 0.9 mg/dl (0.2-1.3); Blood Urea Nitrogen 18 mg/dl (9-20); Calcium 9.3 mg/dl (8.4-10.2); Carbon Dioxide 29 mmol/L (22.0-30.0); Chloride 99 mmol/L (98-107); Creatinine Clearance Estimated 169 mL/min (50-200); Estimated Glomerular Filt Rate 117 ml/min (>60); GFR (African American) 141 ML/MIN (>60); Globulin 2.9 g/dL (1.3-3.2); Glucose 117 mg/dl (74-100); Sodium 136 mmol/L (136-145); Total Protein,Serum 6.8 g/dl (6.3-8.2)
[2021-08-01 06:56] LABS: Potassium 2.8 mmoL/L (3.5-5.1)
--- NOTE | 2021-08-01 09:22 | HMH.ACPN2 ---
Internal Medicine - PN: Subj *Date: 08/01/21 *Time: 20:10 Interval history: 55-year-old male patient sitting up in bed resting quietly, he is more alert today than yesterday recognize staff by name, reports he really does not remember what happened up to this point. We will transfer back to floor Exam Vital signs and Labs for Last 24 Hours: Temp Pulse Resp BP Pulse Ox 98.7 F 72 20 148/60 H 90 L 08/01/21 08:00 08/01/21 08:00 08/01/21 04:00 08/01/21 08:00 08/01/21 08:00 Laboratory Results - last 24 hr 07/31/21 06:45: C-Reactive Protein 15.4 H 07/31/21 10:49: WBC 8.6, RBC 5.46, Hgb 16.5, Hct 51.8, MCV 94.9 H, MCH 30.2, MCHC 31.8, RDW 15.0, Plt Count 232, MPV 8.8, Neut % (Auto) 87.3 H, Lymph % (Auto) 9.5 L, [place] % (Auto) 2.8, Eos % (Auto) 0.2, Baso % (Auto) 0.3, Neut # (Auto) 7.5, Lymph # (Auto) 0.8, [place] # (Auto) 0.2, Eos # (Auto) 0.0, Baso # (Auto) 0.0, Total Counted 100, Neutrophils % (Manual) 91 H, Lymphocytes % (Manual) 7 L, Monocytes % (Manual) 2, Platelet Estimate Normal, RBC Morphology Normal 07/31/21 10:49: Sodium 134 L, Potassium 3.7, Chloride 97 L, Carbon Dioxide 26, Anion Gap 14.7, BUN 26 H, Creatinine 0.80, Estimated Creat Clear 152, Estimated GFR 100, Est GFR ( Amer) 121, Glucose 218 H D, Calcium 9.7, Acetone Level Moderate 07/31/21 10:49: Ammonia 17 07/31/21 11:28: POC Glucose 206 H 07/31/21 13:10: Sodium 132 L, Potassium 3.6, Chloride 96 L, Carbon Dioxide 27, Anion Gap 12.6, BUN 26 H, Creatinine 0.70, Estimated Creat Clear 173, Estimated GFR 117, Est GFR ( Amer) 141, Glucose 298 H D, Calcium 9.3, Acetone Level Small 07/31/21 14:15: POC Glucose 213 H 07/31/21 15:08: POC Glucose 168 H 07/31/21 16:00: Sodium 135 L, Potassium 3.3 L, Chloride 98, Carbon Dioxide 29, Anion Gap 11.3, BUN 24 H, Creatinine 0.70, Estimated Creat Clear 173, Estimated GFR 117, Est GFR ( Amer) 141, Glucose 139 H D, Calcium 9.5 07/31/21 18:02: POC Glucose 102 07/31/21 19:40: POC Glucose 133 H 07/31/21 19:45: Sodium 134 L, Potassium 3.2 L, Chloride 98, Carbon Dioxide 31 H, Anion Gap 8.2, BUN 22 H, Creatinine 0.70, Estimated Creat Clear 173, Estimated GFR 117, Est GFR ([facility] Amer) 141, Glucose 141 H, Calcium 9.3 07/31/21 21:09: POC Glucose 129 H 07/31/21 22:10: POC Glucose 134 H 08/01/21 00:18: POC Glucose 143 H 08/01/21 00:30: Sodium 135 L, Potassium 3.1 L, Chloride 100, Carbon Dioxide 31 H, Anion Gap 7.1, BUN 18, Creatinine 0.70, Estimated Creat Clear 173, Estimated GFR 117, Est GFR ( Amer) 141, Glucose 149 H, Calcium 9.0, Acetone Level None detected 08/01/21 05:05: POC Glucose 113 H 08/01/21 05:15: Sodium 136, Potassium 2.8 L*, Chloride 99, Carbon Dioxide 29, Anion Gap 10.8, BUN 18, Creatinine 0.70, Estimated Creat Clear 169, Estimated GFR 117, Est GFR ([facility] Amer) 141, Glucose 117 H D, Calcium 9.3, Total Bilirubin 0.9, AST 59, ALT 35, Alkaline Phosphatase 173 H, Total Protein 6.8, Albumin 3.9, Globulin 2.9, Albumin/Globulin Ratio 1.3 08/01/21 05:15: WBC 10.5, RBC 5.05, Hgb 15.0, Hct 46.2, MCV 91.5, MCH 29.7, MCHC 32.5, RDW 15.0, Plt Count 250, MPV 8.6, Neut % (Auto) 71.0, Lymph % (Auto) 21.5, [place] % (Auto) 6.6, Eos % (Auto) 0.4, Baso % (Auto) 0.4, Neut # (Auto) 7.5, Lymph # (Auto) 2.3, [place] # (Auto) 0.7, Eos # (Auto) 0.0, Baso # (Auto) 0.0 I & O for Last 24 hours: Intake & Output 07/29/21 07/30/21 07/31/21 08/01/21 23:59 23:59 23:59 23:59 Intake Total 1356 / 1866 1258 / 1258 Output Total 0 / 0 Balance 1356 / 1866 1258 / 1258 Weight 230 lb 229 lb 4.492 oz 223 lb 7 oz Microbiology Reports for the Last 24 Hours: Microbiology 07/30/21 19:29 Urine,Clean Catch Urine Culture - Preliminary NO GROWTH AFTER 24 HOURS - Constitutional no acute distress - *Routine HEENT Exam Head: Present: normocephalic Eye: Present: EOMI ENT: Present: mucous membranes moist - *Routine Neck Exam Present: trachea midline. Absent: tracheal deviation - *Routine Respiratory Exam Pre
[2021-08-01 11:23] LABS: POC Glucose,Bedside 174 (70-110)
--- NOTE | 2021-08-01 12:10 | PC.NURSE ---
Report given to Venancio Almonte RN at this time, patient transported to [facility] via in stable condition.
--- NOTE | 2021-08-01 19:15 | PC.NURSE ---
No acute changes since coming from unit to floor.
[2021-08-01 22:36] LABS: POC Glucose,Bedside 199 (70-110)
[2021-08-02] VITALS: BP 147/63; PULSE 60; PULSE 64; RESP 20; TEMP 36.5; O2SAT 97
[2021-08-02 04:00] VITALS: BP 174/85; PULSE 60; PULSE 65; RESP 18; TEMP 36.4; O2SAT 93
[2021-08-02 06:49] LABS: POC Glucose,Bedside 107 (70-110)
[2021-08-02 07:28] LABS: Basophils # 0.1 K/mm3 (0-0.2); Basophils % 0.6 % (0.1-2.0); Eosinophils % 0.5 % (0.1-12.0); Hematocrit 43.4 % (42.0-52.0); Lymphocytes # 2.2 K/mm3 (0.7-4.5); Mean Corpuscular HGB Conc 32.3 g/dL (31.8-35.4); Mean Corpuscular Hemoglobin 29.7 pg (27.0-31.2); Mean Corpuscular Volume 91.9 fl (80-94); Mean Platelet Volume 8.4 fl (7.4-10.4); Monocytes # 0.5 K/mm3 (0.1-1.0); Monocytes % 6.6 % (1.7-9.3); Neutrophils # 5.2 K/mm3 (1.8-7.8); Neutrophils % 64.3 % (37.0-80.0); Platelet Count 199 K/mm3 (142-424); Red Blood Count 4.72 M/mm3 (4.60-6.20); Red Cell Distribution Width 14.9 % (11.5-17.5)
[2021-08-02 07:37] LABS: Alanine Aminotransferase 36 U/L (12-78); Albumin Level 3.6 g/dl (3.5-5.0); Albumin/Globulin Ratio 1.3 (1.1-1.8); Alkaline Phosphatase 158 U/L (38-126); Aspartate Amino Transferase 51 U/L (17-59); Bilirubin,Total 0.9 mg/dl (0.2-1.3); Blood Urea Nitrogen 14 mg/dl (9-20); Carbon Dioxide 29 mmol/L (22.0-30.0); Chloride 99 mmol/L (98-107); Creatinine Clearance Estimated 169 mL/min (50-200); Estimated Glomerular Filt Rate 117 ml/min (>60); GFR (African American) 141 ML/MIN (>60); Globulin 2.8 g/dL (1.3-3.2); Glucose 109 mg/dl (74-100); Sodium 134 mmol/L (136-145); Total Protein,Serum 6.4 g/dl (6.3-8.2)
[2021-08-02 07:44] VITALS: BP 173/61; PULSE 74; RESP 18; O2SAT 95
--- NOTE | 2021-08-02 09:43 | HMH.DCSUM ---
General - General Admission date:: 07/30/21 Discharge date: 08/02/21 HPI HPI: Patient is a 55-year-old white male, well-known to me, presented to the office with confusion, altered mental status. Most of the history is obtained from his ex-. 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 He lives at home with his mother who had noticed some confusion earlier in the day. Patient had already been dressed, attempted to put on a second pair of pants and seemed confused as he was getting ready for work. He later spent the day in bed. Patient has a longstanding history of diabetes, marginal control. He may have missed a few doses of insulin, p.o. intake is likely been diminished. Patient was sent to the emergency room prior to admission for evaluation. He was found to be COVID-positive. Lab work showed a concentrated urine with a few WBCs. Psychology was unremarkable. CT of the brain showed some diffuse atherosclerotic changes doubt anything acute. Chest film showed hazy opacities without significant consolidation. Patient was admitted for further evaluation and treatment. Clinically his mentation improved in the emergency room, he continues to improve this morning. He is arousable, alert and clear. Patient has history of coronary artery disease, status post stent deployment. History of diabetes with marginal control. 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 History of cervical and lumbar spinal surgery, history of stimulator implant, history of intractable chronic back pain requiring long-term analgesics. He is functional on his regimen. Hospital Course Hospital Course: Laboratory Tests 07/30/21 07/30/21 07/30/21 18:54 19:14 19:14 WBC 8.8 RBC 5.68 Hgb 17.0 Hct 52.9 H MCV 93.2 MCH 30.0 MCHC 32.1 RDW 14.9 Plt Count 267 MPV 8.3 Neut % (Auto) 75.8 Lymph % (Auto) 16.7 [place] % (Auto) 5.7 Eos % (Auto) 0.7 Baso % (Auto) 1.0 Neut # (Auto) 6.7 Lymph # (Auto) 1.5 [place] # (Auto) 0.5 Eos # (Auto) 0.1 Baso # (Auto) 0.1 Total Counted Neutrophils % (Manual) Lymphocytes % (Manual) Monocytes % (Manual) Platelet Estimate RBC Morphology PT INR APTT Specimen Source O2 % ABG pH ABG pCO2 ABG pO2 ABG HCO3 ABG Total CO2 ABG O2 Saturation ABG Base Excess Jaime Test Sodium 136 Potassium 3.3 L Chloride 96 L Carbon Dioxide 29 Anion Gap 14.3 BUN 19 Creatinine 0.90 Estimated Creat Clear 118 Estimated GFR 87 Est GFR ( Amer) 106 Glucose 169 H POC Glucose 158 H Lactate Calcium 9.9 Total Bilirubin 1.3 AST 62 H ALT 41 Alkaline Phosphatase 214 H Ammonia Troponin I < 0.01 C-Reactive Protein NT-Pro-B Natriuret Pep Total Protein 7.8 Albumin 4.4 Globulin 3.4 H Albumin/Globulin Ratio 1.3 Urine Color Urine Appearance Urine pH Ur Specific [place] Urine Protein Urine Glucose (UA) Urine Ketones Urine Blood Urine Nitrate Urine Bilirubin Urine Urobilinogen Ur Leukocyte Esterase Urine RBC Urine WBC Ur Squamous Epith Cells Urine Bacteria Salicylates Urine Opiates Screen Urine Methadone Screen Acetaminophen Ur Barbituates Screen Ur Phencyclidine Scrn Ur Amphetamines Screen U Benzodiazepines Scrn Urine Cocaine Screen U Marijuana (THC) Screen Plasma/Serum Alcohol Acetone Level SARS-CoV-2 (PCR) Influenza A Untype (PCR) Influenza Type B (PCR) 07/30/21 07/30/21 07/30/21 19:14 19:14 19:14 WBC RBC Hgb Hct MCV MCH MCHC RDW Plt Count MPV Neut % (Auto) Lymph % (Auto) [place] % (Auto) Eos % (Auto) Baso % (Auto) Neut # (Auto) Lymph # (Auto) [place] # (Auto) Eos # (Auto) Baso # (Auto) Total Counted
--- NOTE | 2021-08-02 10:01 | SW/DCPLANNER ---
PATIENT DISCHARGING HOME AFTER A SHORT STAY IN THE HOSPITAL WITH COVID.. I ASKED PATIENT IF HE FELT HE NEEDED 02 AND HE SAID NO. HE FELT HE WOULD BE OK....
--- NOTE | 2021-08-02 10:40 | HMH.PHAINT ---
DISCHARGE COUNSELING COMPLETED BY PHARMACIST. PRESCRIPTION FOR AZITHROMYCIN GIVEN TO PATIENT. PT VERBALIZED UNDERSTANDING.
--- NOTE | 2021-08-02 11:54 | HMH.PULMPN ---
Internal Medicine - PN: Subj *Date: 08/02/21 *Time: 11:54 Interval history: No acute respiratory events in the last 48 hrs Exam - Constitutional Constitutional:: Present: no acute distress, comfortable - HENMT Exam HENMT: Present: normocephalic, atraumatic - Eye Exam Eyes:: Present: normal appearance both eyes and related structures - Neck Exam Neck:: Present: normal visual inspection - Respiratory Exam Respiratory:: Present: able to speak in complete sentences, lungs clear, no respiratory distress. Absent: wheezing - Cardiovascular Exam Cardiac:: Present: S1, S2 - GI Exam GI:: Present: soft - Skin Exam Skin: Present: warm - Neurological Exam Neurological: Present: alert, awake - Extremities Exam Extremities: Present: no cyanosis, no clubbing, no edema Assessment and Plan (1) Altered mental status Status: Acute Qualifiers: Altered mental status type: unspecified Qualified Code(s): R41.82 - Altered mental status, unspecified Category: Medical Code(s): R41.82 - Altered mental status, unspecified (2) COVID-19 Status: Acute Category: Medical Code(s): U07.1 - COVID-19 (3) Encephalopathy Status: Acute Category: Medical Code(s): G93.40 - Encephalopathy, unspecified (4) Dehydration Status: Acute Category: Medical Code(s): E86.0 - Dehydration (5) Pneumonia Status: Acute Qualifiers: Pneumonia type: due to unspecified organism Category: Medical Code(s): J18.9 - Pneumonia, unspecified organism (6) CAD (coronary artery disease) Status: Chronic Qualifiers: Coronary Disease-Associated Artery/Lesion type: [place] artery [place] vs. transplanted heart: [place] heart Associated angina: without angina Qualified Code(s): I25.10 - Atherosclerotic heart disease of [place] coronary artery without angina pectoris Category: Medical Code(s): I25.10 - Atherosclerotic heart disease of [place] coronary artery without angina pectoris (7) Chronic back pain greater than 3 months duration Status: Chronic Category: Medical Code(s): M54.9 - Dorsalgia, unspecified; G89.29 - Other chronic pain (8) Diabetes Status: Chronic Qualifiers: Diabetes mellitus type: type 2 Diabetes mellitus termite exterminator insulin use: without termite exterminator use Diabetes mellitus complication status: with circulatory complication Diabetes mellitus complication detail: with other circulatory complications Qualified Code(s): E11.59 - Type 2 diabetes mellitus with other circulatory complications Category: Medical Code(s): E11.9 - Type 2 diabetes mellitus without complications (9) Sacral nerve stimulator present Status: Chronic Category: Medical Code(s): Z96.82 - Presence of neurostimulator (10) Stented coronary artery Status: Chronic Category: Surgical Code(s): Z95.5 - Presence of coronary angioplasty implant and graft - Assessment and plan all Dx Assessment and Plan for all problems:: # COVID-19 pneumonia: #CAP: 55-year-old history of diabetes presents with altered mentation found to be positive for COVID-19 PCR. On further questioning patient denies any respiratory symptoms. He admits his baseline with respect to his respiratory symptoms. Auscultation bilateral clear breath sounds. CRP mildly elevated at 15. Patient saturating 95 to 97% on room air. Monoclonal antibody infusion not available currently. Given asymptomatic status of his COVID-19 pneumonia and unable to obtain monoclonal antibody infusion will opt to monitor clinically at this point of time. Heas been receiving Abx for CAP. He has been on room air for the last 48 hours He is saturating 97% room air this morning. Plan: -Monitor Clinically. -Continue antibiotics for community-acquired pneumonia for total of 5 days, can be weaned azithromycin on discharge. For involving pulmonary in this patient care. We will follow in the clinic as needed.
== END 2021-08-02 10:33 | disposition home or self-care (01) | DRG 177 ==
LOC: ER 19:47 → 2ND 07-31 07:33 → ICU 07-31 12:41 → 2ND 08-01 11:18
PROVIDERS: Emergency Medicine; Internal Medicine Pulmonary Disease; Nurse Practitioner Family; Admitting Provider Family Medicine; Emergency Provider Emergency Medicine; PCP Family Medicine; Visit Provider Family Medicine
DX: U07.1 COVID-19 (principal); J12.82 Pneumonia due to coronavirus disease 2019; G93.40 Encephalopathy, unspecified; I25.10 Atherosclerotic heart disease of native coronary artery without angina pectoris; I10 Essential (primary) hypertension; E78.5 Hyperlipidemia, unspecified; F17.210 Nicotine dependence, cigarettes, uncomplicated; Z79.4 Long term (current) use of insulin; E86.0 Dehydration; F41.9 Anxiety disorder, unspecified; Z95.5 Presence of coronary angioplasty implant and graft; F32.A Depression, unspecified; K21.9 Gastro-esophageal reflux disease without esophagitis; M54.9 Dorsalgia, unspecified; E11.59 Type 2 diabetes mellitus with other circulatory complications; E87.6 Hypokalemia
CPT/HCPCS: 36415; 70450; 71045; 80048; 80053; 80305; 80329; 81001; 82009; 82140; 82803; 82962; 83605; 83880; 84484; 85007; 85025; 85610; 85730; 86140; 87040; 87086; 93005; 99284; C9803; J0456; J0696; U0003; U0005

== ENCOUNTER → 2021-08-06 22:41 | Outpatient (CLI) | payer OTHER, SELFPAY | PROVIDERS: Visit Provider Family Medicine | DX: Z86.16 Personal history of COVID-19 (principal) | CPT/HCPCS: C9803; U0003; U0005 ==

== ENCOUNTER 2021-08-27 09:44 | Inpatient (IN) | payer OTHER, SELFPAY ==
[2021-08-27] VITALS (13 sets, daily range): BP systolic 143–201; BP diastolic 85–110; PULSE 84–110; RESP 16–22; TEMP 36.4–36.6; O2SAT 88–98; BMI 34.4; BMI 31.8
--- NOTE | 2021-08-27 09:43 | ECG_ITS ---
APPROVED REPORT Exam: Resting ECG HR:103 bpm ECG Measurements Heart Rate 103 AXES NM 163 P 53 QRSd 90 QRS 23 QT 246 T 26 QTc 305 Conclusion SINUS TACHYCARDIA POSSIBLE LEFT ATRIAL ENLARGEMENT [-0.1mV P-WAVE IN V1/V2] NONSPECIFIC T-WAVE ABNORMALITY ABNORMAL RHYTHM ECG UNCONFIRMED REPORT Electronically signed by : Abraham Hernandez MD 08/29/2021 19:06:18
--- NOTE | 2021-08-27 09:51 | XR_ITS ---
FINAL REPORT CLINICAL HISTORY: chest pain, hx of covid 3 weeks ago, smoker COMPARISON: July 31, 2021 FINDINGS: SINGLE VIEW CHEST. The heart is normal in size. The mediastinum is unremarkable. Worsening pulmonary opacities which are consistent worsening bilateral pneumonia. There is no pneumothorax. A spinal stimulator is present. There are postoperative changes in the lower cervical spine. IMPRESSION: Worsening pulmonary opacities consistent with worsening bilateral pneumonia. Reviewed, Interpreted and Dictated by Víctor Lopez III, MD Transcribed by Joyce Robison Authenticated by Víctor Lopez III, MD on 08/27/2021 10:18:24 AM [facility]
--- NOTE | 2021-08-27 09:51 | HMH.EDGENADL ---
ED Disposition Clinical Impression: Lung mass, Liver masses Acute pancreatitis Qualifiers: Pancreatitis type: biliary Acute pancreatitis complication: no infection or necrosis Qualified Code(s): K85.10 - Biliary acute pancreatitis without necrosis or infection Disposition: Admitted as Observation Condition on Discharge: Fair Referrals: Ed Cavazos MD [Primary Care Provider] - - Critical Care Critical Care Time: No Attestation: On , the high probability of a clinically significant, sudden or life threatening deterioration of the following system(s) required my full and direct attention, intervention and personal management. The time I documented below is in addition to time spent performing reported procedures but includes the following listed in this critical care notation. Medical Decision Making - Medical Records Medical records reviewed: Yes: I reviewed the patient's medical records. MR Comment: Admitted here 07/30/21 through 08/02/2021 for encephalopathy with COVID-19 infection. - Radu Inquiry Pt receiving controlled substance: Yes Radu was queried for this patient: Yes Risks and benefits of using a controlled substance: were discussed with pt by me Vital Signs: 08/27/21 09:45 08/27/21 10:45 08/27/21 10:49 Temperature 98 F Temperature Source Oral Pulse Rate 101 H 106 H Pulse Rate [Radial] 110 H Respiratory Rate 20 16 22 Blood Pressure 143/89 H Blood Pressure [Right Arm] 196/106 H Blood Pressure Mean 107 Blood Pressure Mean [Right Arm] 136 Blood Pressure Position Blood Pressure Position [Right Arm] Sitting 02 Sat by Pulse Oximetry 94 L 94 L 94 L Oxygen Delivery Method Room Air Oxygen Flow Rate (LPM) 08/27/21 11:37 08/27/21 11:38 Temperature Temperature Source Pulse Rate 101 H Pulse Rate [Radial] Respiratory Rate Blood Pressure 201/94 H Blood Pressure [Right Arm] Blood Pressure Mean Blood Pressure Mean [Right Arm] Blood Pressure Position Sitting Blood Pressure Position [Right Arm] 02 Sat by Pulse Oximetry 88 L 95 Oxygen Delivery Method Room Air Nasal Cannula Oxygen Flow Rate (LPM) 2 - Lab Data Lab Results 08/27/21 09:55: WBC 15.1 H, RBC 5.47, Hgb 16.0, Hct 52.5 H, MCV 95.9 H, MCH 29.2, MCHC 30.4 L, RDW 15.5, Plt Count 226, MPV 8.4, Neut % (Auto) 85.8 H, Lymph % (Auto) 8.1 L, [place] % (Auto) 5.1, Eos % (Auto) 0.6, Baso % (Auto) 0.5, Neut # (Auto) 13.0 H, Lymph # (Auto) 1.2, [place] # (Auto) 0.8, Eos # (Auto) 0.1, Baso # (Auto) 0.1, Total Counted 100, Neutrophils % (Manual) 85 H, Lymphocytes % (Manual) 10, Monocytes % (Manual) 5, Platelet Estimate Normal, RBC Morphology Normal 08/27/21 09:55: D-Dimer 2.26 H 08/27/21 09:55: Sodium 131 L, Potassium 3.5, Chloride 94 L, Carbon Dioxide 33 H, Anion Gap 7.5, BUN 18, Creatinine 0.70, Estimated Creat Clear 181, Estimated GFR 117, Est GFR ( Amer) 141, Glucose 301 H, Calcium 9.3, Total Bilirubin 1.4 H, AST 68 H, ALT 48, Alkaline Phosphatase 324 H, Troponin I < 0.01, Total Protein 6.8, Albumin 3.7, Globulin 3.1, Albumin/Globulin Ratio 1.2, Amylase 228 H 08/27/21 09:55: Lipase 1542 H 08/27/21 10:42: SARS-CoV-2 (PCR) Not detected, Influenza A Untype (PCR) Not detected, Influenza Type B (PCR) Not detected Result diagrams: 08/27/21 09:55 08/27/21 09:55 Orders (Tests/Meds): ED MEDICATIONS Discontinued Medications Generic Name Dose Route Start Last Admin Trade Name Jaimeq PRN Reason Stop Dose Admin Hydromorphone HCl 1 mg 08/27/21 10:34 08/27/21 10:37 Hydromorphone 2mg/Ml Syringe IV 08/27/21 10:35 1 mg ONCE ONE Administration Iopamidol 70 ml 08/27/21 11:16 08/27/21 11:17 Iopamidol-370 (76%);100ml Bottle IV 08/27/21 11:17 70 ml ONCE ONE Administration Ondansetron HCl 4 mg 08/27/21 10:34 08/27/21 10:37 Ondansetron 4mg/2ml Vial IV 08/27/21 10:35 4 mg ONCE ONE Administration Sodium Chloride 10 ml 08/27/21 11:16 08/27/21 11:17 Sodium Chloride 0.9% 10ml Syr (Rad On
[2021-08-27 10:08] LABS: Basophils # 0.1 K/mm3 (0-0.2); Basophils % 0.5 % (0.1-2.0); Eosinophils # 0.1 K/mm3 (0.0-0.4); Eosinophils % 0.6 % (0.1-12.0); Hematocrit 52.5 % (42.0-52.0); Lymphocytes # 1.2 K/mm3 (0.7-4.5); Lymphocytes % 8.1 % (10-50); Mean Corpuscular HGB Conc 30.4 g/dL (31.8-35.4); Mean Corpuscular Hemoglobin 29.2 pg (27.0-31.2); Mean Corpuscular Volume 95.9 fl (80-94); Mean Platelet Volume 8.4 fl (7.4-10.4); Monocytes # 0.8 K/mm3 (0.1-1.0); Monocytes % 5.1 % (1.7-9.3); Neutrophils % 85.8 % (37.0-80.0); Platelet Count 226 K/mm3 (142-424); Red Blood Count 5.47 M/mm3 (4.60-6.20); Red Cell Distribution Width 15.5 % (11.5-17.5); White Blood Count 15.1 K/mm3 (4.8-10.8)
[2021-08-27 10:12] LABS: MANUAL DIFFERENTIAL MANUAL DIFFERENTIAL (MANUAL DIFF)
[2021-08-27 10:19] LABS: Chloride 94 mmol/L (98-107); Potassium 3.5 mmoL/L (3.5-5.1); Sodium 131 mmol/L (136-145)
[2021-08-27 10:22] LABS: Alanine Aminotransferase 48 U/L (12-78); Alkaline Phosphatase 324 U/L (38-126); Amylase 228 U/L (30-110); Anion Gap 7.5 mEq/L (5-15); Aspartate Amino Transferase 68 U/L (17-59); Bilirubin,Total 1.4 mg/dl (0.2-1.3); Blood Urea Nitrogen 18 mg/dl (9-20); Calcium 9.3 mg/dl (8.4-10.2); Carbon Dioxide 33 mmol/L (22.0-30.0); Creatinine Clearance Estimated 181 mL/min (50-200); Estimated Glomerular Filt Rate 117 ml/min (>60); GFR (African American) 141 ML/MIN (>60); Glucose 301 mg/dl (74-100)
[2021-08-27 10:23] LABS: Albumin Level 3.7 g/dl (3.5-5.0); Albumin/Globulin Ratio 1.2 (1.1-1.8); Globulin 3.1 g/dL (1.3-3.2); Total Protein,Serum 6.8 g/dl (6.3-8.2)
[2021-08-27 10:25] LABS: Lipase 1542 U/L (23-300)
[2021-08-27 10:27] LABS: D-Dimer 2.26 ug/mL (0.0-0.5)
--- NOTE | 2021-08-27 10:33 | CT_ITS ---
FINAL REPORT CLINICAL HISTORY: pancreatitis FINDINGS: Technique: The patient was injected with intravenous contrast. Axial images through the abdomen and pelvis were performed. This study was performed with techniques to keep radiation doses as low as reasonably achievable (ALARA). Individualized dose reduction techniques using automated exposure control or adjustment of mA and/or kV according to the patient's size were employed. Abdomen: Note is made of gallstones. There is a lobular liver, may represent cirrhosis. Numerous hepatic masses are identified consistent with widespread hepatic metastatic disease. There is gastrohepatic ligament adenopathy, likely metastatic adenopathy. The spleen is unremarkable. The adrenals are normal. The pancreas is unremarkable. The kidneys enhance appropriately. The aorta is normal in caliber. Pelvis: The appendix is normal. There is an umbilical hernia containing fat. The urinary bladder is unremarkable. There is no free fluid. IMPRESSION: Widespread hepatic metastatic disease. Patient's nurse Azra Lugo was notified of findings at time of dictation. Reviewed, Interpreted and Dictated by Víctor Lopez III, MD Transcribed by Azra Reyes Authenticated by Víctor Lopez III, MD on 08/27/2021 12:34:30 PM [facility]
--- NOTE | 2021-08-27 10:33 | CT_ITS ---
FINAL REPORT CLINICAL HISTORY: bilat rib pain, high d-dimer FINDINGS: Thin section axial CT images of the chest were obtained with contrast. 3D reformatted images were also obtained. This study was performed with techniques to keep radiation doses as low as reasonably achievable (ALARA). Individualized dose reduction techniques using automated exposure control or adjustment of mA and/or kV according to the patient''s size were employed. There is no evidence of pulmonary embolism. There is no evidence of thoracic aortic aneurysm or dissection. There is a left upper lobe nodule measuring 16 mm. There is a lingular nodule measuring 28 mm. There is left hilar and mediastinal adenopathy. Left hilar adenopathy measures 5.5 cm. Left AP window adenopathy measures 4.5 cm. Mild pulmonary groundglass opacities are identified, favor edema. Mild atelectasis is noted. IMPRESSION: Lung nodules with left hilar and mediastinal adenopathy consistent with metastatic primary lung cancer. Patient's nurse Azra Lugo was notified of findings at time of dictation. Reviewed, Interpreted and Dictated by Víctor Lopez III, MD Transcribed by Azra Reyes Authenticated by Víctor Lopez III, MD on 08/27/2021 12:34:[address] [facility]
[2021-08-27 10:50] LABS: Troponin I < 0.01 ng/ml (0.00-0.034)
[2021-08-27 10:53] LABS: Coronavirus 19, PCR Not Detected (NotDetected); Influenza A, PCR Not Detected (NotDetected); Influenza B, PCR Not Detected (NotDetected)
[2021-08-27 11:58] LABS: Lymphocytes % 10 % (10-50); Monocytes % 5 % (2-9); Neutrophils % 85 % (42-76); Platelet Estimate Normal; RBC Morphology Normal; Total Cells Counted 100
--- NOTE | 2021-08-27 12:40 | PC.NURSE ---
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
[2021-08-27 12:53] LABS: Appearance,Urine CLEAR (Clear); Bilirubin,Urine Negative (Negative); Blood, Urine 1+ (Negative); Color,Urine YELLOW (Yellow); Glucose,Urine (UA) 3+ (Negative); Ketones,Urine Negative (Negative); Leukocyte Esterase,Urine Negative (Negative); Microscopic, Urine URINE MICROSCOPIC (MICROSCOPIC); Nitrate,Urine Negative (Negative); Protein,Urine 3+ (Negative)
--- NOTE | 2021-08-27 13:04 | PC.NURSE ---
Dr Coffey talking to Dr Cavazos
--- NOTE | 2021-08-27 13:17 | PC.NURSE ---
notified care management of admission, spoke with jesus
--- NOTE | 2021-08-27 13:50 | HMH.PHAINT ---
MEDICATION RECONCILIATION COMPLETED ON PATIENT USING EXTERNAL FILL HISTORY FROM PHARMACY, LIST FROM PCP OFFICE, AND LIST FROM DISCHARGE SUMMARY FROM PREVIOUS ADMISSION. -HOLLAND MENDESD
--- NOTE | 2021-08-27 14:15 | HMH.GSCON ---
*Admission Date: 08/27/21 *Reason for consult:: Gallstone pancreatitis *History of present illness: This is a 55-year-old gentleman seen in consultation after evaluation emergency department for increasing abdominal pain. No fevers. No jaundice. He did have radiographic evidence consistent with gallstones and a somewhat distended gallbladder. No definitive biliary dilatation noted. Biochemical evidence consistent with pancreatitis also confirmed. Per CT scan of chest/abdomen/pelvis, the patient has a new diagnosis of likely lung cancer with extensive liver metastases. Review of Systems - Constitutional Denies chills - Eyes Denies change in vision - *Cardiovascular Denies chest pain - *Respiratory Denies cough - *Gastrointestinal Reports abdominal pain [facility] History Medical History: Reports:: Anxiety, Congenital Heart Disease, Coronary Artery Disease, Depression, Diabetes Mellitus Type 2, Gastroesophageal Reflux Disease(GERD), Hyperlipidemia, Hypertension Denies:: Cancer, Diabetes Mellitus Type 1, MRSA *Have you ever received a pneumonia vaccine?: No *Have you received a flu vaccine this season?: Yes Other Surgeries: Yes: Cardiac Catheterization, Coronary Stent Amputation: No Fractures: Yes (RT wrist) - *Social History Smoking Status: Current every day smoker Tobacco Type: cigarettes # Packs/Day (cigarettes): 1 #Yrs smoked (if former smoker): 20 Alcohol Intake: current Alcohol Intake Frequency:: a few times a month Substance Use Type: denies use *Occupational Status:: employed Housing: house Household Members: spouse *Travel in the last 8 weeks: None - Psychiatric History Pschychiatric History:: Reports:: Anxiety, Depression Family Hx:: Unable to obtain Meds Home Medications Medication Instructions Recorded Confirmed Type Aspirin [Low Dose Aspirin EC] 81 mg PO DAILY 05/17/21 08/27/21 History Fenofibrate Nanocrystallized 145 mg PO DAILY 05/17/21 08/27/21 History [Fenofibrate] Gabapentin 600 mg PO QID 05/17/21 08/27/21 History Insulin Glargine/Lixisenatide 25 unit SQ DAILY 05/17/21 08/27/21 History [Soliqua 100 Unit-33 Mcg/ml Pen] Rosuvastatin Calcium 20 mg PO HS 05/17/21 08/27/21 History Sertraline HCl [Zoloft] 50 mg PO DAILY 05/17/21 08/27/21 History carvediloL [Coreg 12.5mg 12.5 mg PO BID 01/11/22 02/08/22 History Tablet] Omeprazole [Omeprazole 20mg 40 mg PO DAILY 08/27/21 08/27/21 History Capsule] Oxycodone HCl/Acetaminophen 1 tab PO QIDP PRN 08/27/21 08/27/21 History [Oxycodone-Acetaminophen 10-325] hydroCHLOROthiazide [HCTZ 25mg 25 mg PO DAILY 08/27/21 08/27/21 History tab] lisinopriL [Zestril 40mg Tablet] 40 mg PO DAILY 08/27/21 08/27/21 History Allergies Allergy/AdvReac Type Severity Reaction Status Date / Time No Known Allergies Allergy Verified 08/20/21 14:45 Exam Vital signs and Labs for Last 24 Hours: Temp Pulse Resp BP Pulse Ox 98 F 102 H 18 185/99 H 98 08/27/21 09:45 08/27/21 13:00 08/27/21 13:00 08/27/21 13:00 08/27/21 13:00 Laboratory Results - last 24 hr 08/27/21 09:55: WBC 15.1 H, RBC 5.47, Hgb 16.0, Hct 52.5 H, MCV 95.9 H, MCH 29.2, MCHC 30.4 L, RDW 15.5, Plt Count 226, MPV 8.4, Neut % (Auto) 85.8 H, Lymph % (Auto) 8.1 L, [place] % (Auto) 5.1, Eos % (Auto) 0.6, Baso % (Auto) 0.5, Neut # (Auto) 13.0 H, Lymph # (Auto) 1.2, [place] # (Auto) 0.8, Eos # (Auto) 0.1, Baso # (Auto) 0.1, Total Counted 100, Neutrophils % (Manual) 85 H, Lymphocytes % (Manual) 10, Monocytes % (Manual) 5, Platelet Estimate Normal, RBC Morphology Normal 08/27/21 09:55: D-Dimer 2.26 H 08/27/21 09:55: Sodium 131 L, Potassium 3.5, Chloride 94 L, Carbon Dioxide 33 H, Anion Gap 7.5, BUN 18, Creatinine 0.70, Estimated Creat Clear 181, Estimated GFR 117, Est GFR ( Amer) 141, Glucose 301 H, Calcium 9.3, Total Bilirubin 1.4 H, AST 68 H, ALT 48, Alkaline Phosphatase 324 H, Troponin I < 0.01, Total Protein 6.8, Albumin 3.7, Globulin 3.1, Albumin/Globulin Ratio 1.2,
--- NOTE | 2021-08-27 14:24 | PC.NURSE ---
attempted to call report no answer
--- NOTE | 2021-08-27 14:42 | PC.NURSE ---
attempted to call report nurse will call back
--- NOTE | 2021-08-27 14:55 | HMH.PHAVTE ---
[facility] Pharmacy VTE Monitoring - Patient Demographics Admission date: 08/27/21 Report Date: 08/27/21 Time: 14:55 Allergies/Adverse Reactions: Patient Allergies No Known Allergies Allergy (Verified 08/20/21 14:45) Height: 1.78 m Weight: 108.862 kg Patient Problems: Current Active Problems Gallstone (Acute) Acute pancreatitis (Acute) Lung mass (Acute) Liver masses (Acute) - VTE Risk Labs: VTE Related Lab Results Hgb 16.0 g/dL (14.1-18.0) 08/27/21 09:55 Hct 52.5 % (42.0-52.0) H 08/27/21 09:55 Plt Count 226 K/mm3 (142-424) 08/27/21 09:55 BUN 18 mg/dl (9-20) 08/27/21 09:55 Creatinine 0.70 mg/dl (0.66-1.25) 08/27/21 09:55 Estimated Creat Clear 181 mL/min (50-200) 08/27/21 09:55 - Prophylaxis VTE Prophylaxis Ordered?: Yes Types of VTE Prophylaxis: TEDS Knee High Location of Applied Device: Bilateral Lower Extremeties
[2021-08-27 15:12] LABS: INR 0.98 (0.9-1.1); Prothrombin Time 11.1 seconds (10.1-12.5)
--- NOTE | 2021-08-27 15:17 | PC.NURSE ---
pt arrived to the floor at this time
--- NOTE | 2021-08-27 19:36 | HMH.HP ---
*Admission Date: 08/27/21 *Chief complaint: pancreatitis, gallstones, neoplasm lung with liver mets *History of present illness: Patient is a 55-year-old white male, known to me from my practice, who was admitted from the emergency room earlier today. He presented to the ER with chest pain and abdominal pain. Patient has a known history of coronary artery disease, status post stent deployment. His troponin was negative. Patient has a known history of gallstones. His amylase and lipase were both elevated. Initial chest imaging included x-ray which showed a hazy infiltrative pattern. The patient had recently been diagnosed with Covid, was thought to have neuritic pain. Further imaging of the chest was prompted by an elevated D-dimer. CT the chest demonstrated multiple pulmonary nodules and mediastinal adenopathy suggestive of primary pulmonary neoplasm. CT imaging of the abdomen revealed signs of gallstones and widespread hepatic metastases. Patient had CT abdomen done in April of last year which showed fatty changes in the liver only. Patient's pain has been relieved with Dilaudid and Toradol IV. Dr. Mcduffie has seen and evaluated the patient, has proposed cholecystectomy once pancreatitis improves. A biopsy of hepatic lesions a be feasible at that time. Patient has a longstanding tobacco history, 2 packs/day. The likelihood of primary lung cancer is very high. This was discussed in detail with the patient and his family. 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 [facility] History Medical History: Reports:: Anxiety, Congenital Heart Disease, Coronary Artery Disease, Depression, Diabetes Mellitus Type 2, Gastroesophageal Reflux Disease(GERD), Hyperlipidemia, Hypertension Denies:: Cancer, Diabetes Mellitus Type 1, MRSA *Have you ever received a pneumonia vaccine?: No *Have you received a flu vaccine this season?: Yes Other Surgeries: Yes: Cardiac Catheterization, Coronary Stent Amputation: No Fractures: Yes (RT wrist) - *Social History Smoking Status: Current every day smoker Tobacco Type: cigarettes # Packs/Day (cigarettes): 1 #Yrs smoked (if former smoker): 20 Alcohol Intake: current Alcohol Intake Frequency:: a few times a month Substance Use Type: denies use *Occupational Status:: employed Housing: house Household Members: spouse *Travel in the last 8 weeks: None - Psychiatric History Pschychiatric History:: Reports:: Anxiety, Depression Family Hx:: Unable to obtain Review of Systems - Constitutional Reports fatigue, Reports lack of energy, Reports weakness - Eyes Denies change in vision - ENT Denies abnormal hearing - *Cardiovascular Reports chest pain, Reports shortness of breath with activity - *Respiratory Reports chest congestion, Reports pain with cough, Denies coughing up blood - *Gastrointestinal Reports abdominal pain, Reports bloating, Reports nausea - *Genitourinary Denies difficulty urinating - *Musculoskeletal Reports back pain, Reports limited joint movement, Reports muscle weakness, Reports stiffness - Integumentary/Breasts Denies yellowing of the skin - *Neurologic Reports confusion, Reports unsteadiness, Reports radiating pain - Psychiatric Reports anxiety - Endocrine Denies cold intolerance, Denies increased hunger - Hematologic/Lymphatic Denies easy bleeding - Allergic/Immunologic Denies hives Meds Home Medications Medication Instructions Recorded Confirmed Type Aspirin [Low Dose Aspirin EC] 81 mg PO DAILY 05/17/21 08/27/21 History Fenofibrate Nanocrystallized 145 mg PO DAILY 05/17/21 08/27/21 History [Fenofibrate] Gabapentin 600 mg PO QID 05/17/21 08/27/21 History Insulin Glargine/Lixisenatide 25 unit SQ DAILY 05/17/21 08/27/21 History [Soliqua 100 Unit-33 Mcg/ml Pen] Rosuvastatin Calcium 20 mg PO HS 05/17/21 08/27/21 History Sertraline HCl [Zoloft] 50 mg PO DAILY 05/17/21 08/27/21 Hi
[2021-08-27 20:09] LABS: POC Glucose,Bedside 121 (70-110)
[2021-08-28 04:00] VITALS: BP 190/99; PULSE 90; RESP 18; TEMP 36.8; O2SAT 94
--- NOTE | 2021-08-28 04:01 | PC.NURSE ---
A&OX4. TOLERATING RA WELL. PT HAS BEEN IN [employer] T/O SHIFT. PT HAS C/O CONSTANT GENERALIZED PAIN OF 6-7 ON 1-10 SCALE T/O SHIFT. TX PER SEP. DILAUDID SEEMS TO BE RELIEVING PAIN FOR A COUPLE HOURS AT A TIME. PT HAS SLEPT MAJORITY OF SHIFT. NPO SINCE MIDNIGHT. PT HAS HAD NO OTHER C/O THUS FAR. VSS WILL CONTINUE TO MONITOR.
[2021-08-28 05:00] VITALS: BMI 33.4
[2021-08-28 05:39] LABS: POC Glucose,Bedside 109 (70-110)
[2021-08-28 06:35] LABS: Basophils % 0.2 % (0.1-2.0); Eosinophils # 0.1 K/mm3 (0.0-0.4); Eosinophils % 0.5 % (0.1-12.0); Hematocrit 47.5 % (42.0-52.0); Hemoglobin 14.8 g/dL (14.1-18.0); Lymphocytes # 1.5 K/mm3 (0.7-4.5); Lymphocytes % 13.2 % (10-50); Mean Corpuscular HGB Conc 31.2 g/dL (31.8-35.4); Mean Corpuscular Hemoglobin 29.6 pg (27.0-31.2); Mean Corpuscular Volume 95.1 fl (80-94); Mean Platelet Volume 8.7 fl (7.4-10.4); Monocytes # 0.7 K/mm3 (0.1-1.0); Monocytes % 5.7 % (1.7-9.3); Neutrophils # 9.3 K/mm3 (1.8-7.8); Neutrophils % 80.4 % (37.0-80.0); Platelet Count 200 K/mm3 (142-424); Red Cell Distribution Width 15.8 % (11.5-17.5); White Blood Count 11.6 K/mm3 (4.8-10.8)
[2021-08-28 06:39] LABS: Chloride 99 mmol/L (98-107); Sodium 133 mmol/L (136-145)
[2021-08-28 06:40] LABS: Potassium 3.5 mmoL/L (3.5-5.1)
[2021-08-28 06:42] LABS: Alanine Aminotransferase 44 U/L (12-78); Albumin Level 3.3 g/dl (3.5-5.0); Albumin/Globulin Ratio 1.2 (1.1-1.8); Alkaline Phosphatase 294 U/L (38-126); Anion Gap 5.5 mEq/L (5-15); Aspartate Amino Transferase 76 U/L (17-59); Bilirubin,Total 1.1 mg/dl (0.2-1.3); Blood Urea Nitrogen 19 mg/dl (9-20); Carbon Dioxide 32 mmol/L (22.0-30.0); Creatinine Clearance Estimated 170 mL/min (50-200); Estimated Glomerular Filt Rate 117 ml/min (>60); GFR (African American) 141 ML/MIN (>60); Globulin 2.8 g/dL (1.3-3.2); Total Protein,Serum 6.1 g/dl (6.3-8.2)
[2021-08-28 06:43] LABS: Calcium 8.6 mg/dl (8.4-10.2); Glucose 112 mg/dl (74-100); Lipase 1774 U/L (23-300)
[2021-08-28 07:39] VITALS: BP 189/92; PULSE 74; RESP 18; TEMP 36.9; O2SAT 93
[2021-08-28 08:00] VITALS: O2SAT 93
--- NOTE | 2021-08-28 08:14 | HMH.GSPN ---
Subjective Patient reports: no new complaints, feels better Progress Note: A&P (1) Acute pancreatitis Status: Acute Assessment and plan: Clinically improving; however, lipase slightly increased this morning (2) Liver masses Status: Acute Assessment and plan: Possible liver biopsy at time of cholecystectomy (3) Lung mass Status: Acute (4) Gallstone Status: Acute Assessment and plan: Tentatively scheduled for laparoscopic cholecystectomy (with liver biopsy) tomorrow. I have discussed the risks and benefits including, but not limited to: Bleeding Infection Damage to surrounding tissue Inherent risks of sedation The patient agrees to proceed. (5) CAD (coronary artery disease) Status: Chronic (6) Chronic back pain greater than 3 months duration Status: Chronic (7) Diabetes Status: Chronic (8) Sacral nerve stimulator present Status: Chronic (9) Stented coronary artery Status: Chronic Exam Vital signs and Labs for Last 24 Hours: Temp Pulse Resp BP Pulse Ox 98.5 F 74 18 189/92 H 93 L 08/28/21 07:39 08/28/21 07:39 08/28/21 07:39 08/28/21 07:39 08/28/21 07:39 Laboratory Results - last 24 hr 08/27/21 09:55: WBC 15.1 H, RBC 5.47, Hgb 16.0, Hct 52.5 H, MCV 95.9 H, MCH 29.2, MCHC 30.4 L, RDW 15.5, Plt Count 226, MPV 8.4, Neut % (Auto) 85.8 H, Lymph % (Auto) 8.1 L, [place] % (Auto) 5.1, Eos % (Auto) 0.6, Baso % (Auto) 0.5, Neut # (Auto) 13.0 H, Lymph # (Auto) 1.2, [place] # (Auto) 0.8, Eos # (Auto) 0.1, Baso # (Auto) 0.1, Total Counted 100, Neutrophils % (Manual) 85 H, Lymphocytes % (Manual) 10, Monocytes % (Manual) 5, Platelet Estimate Normal, RBC Morphology Normal 08/27/21 09:55: D-Dimer 2.26 H 08/27/21 09:55: Sodium 131 L, Potassium 3.5, Chloride 94 L, Carbon Dioxide 33 H, Anion Gap 7.5, BUN 18, Creatinine 0.70, Estimated Creat Clear 181, Estimated GFR 117, Est GFR ( Amer) 141, Glucose 301 H, Calcium 9.3, Total Bilirubin 1.4 H, AST 68 H, ALT 48, Alkaline Phosphatase 324 H, Troponin I < 0.01, Total Protein 6.8, Albumin 3.7, Globulin 3.1, Albumin/Globulin Ratio 1.2, Amylase 228 H 08/27/21 09:55: Lipase 1542 H 08/27/21 10:42: SARS-CoV-2 (PCR) Not detected, Influenza A Untype (PCR) Not detected, Influenza Type B (PCR) Not detected 08/27/21 12:10: Urine Color Yellow, Urine Appearance Clear, Urine pH 6.0, Ur Specific [place] 1.020, Urine Protein 3+, Urine Glucose (UA) 3+, Urine Ketones Negative, Urine Blood 1+, Urine Nitrate Negative, Urine Bilirubin Negative, Urine Urobilinogen 2.0, Ur Leukocyte Esterase Negative, Urine RBC 3-5, Urine WBC 3-5, Ur Squamous Epith Cells 3-5, Urine Bacteria None 08/27/21 14:53: PT 11.1, INR 0.98 08/27/21 19:55: POC Glucose 121 H 08/28/21 05:05: POC Glucose 109 08/28/21 06:08: Lipase 1774 H 08/28/21 06:08: WBC 11.6 H, RBC 5.00, Hgb 14.8, Hct 47.5, MCV 95.1 H, MCH 29.6, MCHC 31.2 L, RDW 15.8, Plt Count 200, MPV 8.7, Neut % (Auto) 80.4 H, Lymph % (Auto) 13.2, [place] % (Auto) 5.7, Eos % (Auto) 0.5, Baso % (Auto) 0.2, Neut # (Auto) 9.3 H, Lymph # (Auto) 1.5, [place] # (Auto) 0.7, Eos # (Auto) 0.1, Baso # (Auto) 0.0 08/28/21 06:08: Sodium 133 L, Potassium 3.5, Chloride 99, Carbon Dioxide 32 H, Anion Gap 5.5, BUN 19, Creatinine 0.70, Estimated Creat Clear 170, Estimated GFR 117, Est GFR ( Amer) 141, Glucose 112 H D, Calcium 8.6, Total Bilirubin 1.1, AST 76 H, ALT 44, Alkaline Phosphatase 294 H, Total Protein 6.1 L, Albumin 3.3 L D, Globulin 2.8, Albumin/Globulin Ratio 1.2 I & O for Last 24 hours: Intake & Output 08/25/21 08/26/21 08/27/21 08/28/21 11:59 11:59 11:59 11:59 Intake Total 0 / 0 Output Total 0 / 0 Balance 0 / 0 Weight 240 lb 225 lb 8 oz - Constitutional no acute distress - *Routine Respiratory Exam Absent: respiratory distress - *Routine Cardiovascular Exam Present: RRR - *Routine Abdominal Exam Present: soft
--- NOTE | 2021-08-28 08:49 | HMH.ACPN2 ---
Internal Medicine - PN: Subj *Date: 08/28/21 *Time: 12:17 Interval history: 55-year-old male patient resting in bed quietly, he reports his abdominal pain is better today than yesterday. Current oxygenation 94% on 2 L per nasal cannula. He did not consume any breakfast this morning reports he is not hungry. Lipase elevated to 1774 today. General surgery has been consulted. General Surgery has seen and plans a Lap Anali w/ biopsy in AM. Exam Vital signs and Labs for Last 24 Hours: Temp Pulse Resp BP Pulse Ox 98.5 F 74 18 189/92 H 93 L 08/28/21 07:39 08/28/21 07:39 08/28/21 07:39 08/28/21 07:39 08/28/21 07:39 Laboratory Results - last 24 hr 08/27/21 09:55: WBC 15.1 H, RBC 5.47, Hgb 16.0, Hct 52.5 H, MCV 95.9 H, MCH 29.2, MCHC 30.4 L, RDW 15.5, Plt Count 226, MPV 8.4, Neut % (Auto) 85.8 H, Lymph % (Auto) 8.1 L, [place] % (Auto) 5.1, Eos % (Auto) 0.6, Baso % (Auto) 0.5, Neut # (Auto) 13.0 H, Lymph # (Auto) 1.2, [place] # (Auto) 0.8, Eos # (Auto) 0.1, Baso # (Auto) 0.1, Total Counted 100, Neutrophils % (Manual) 85 H, Lymphocytes % (Manual) 10, Monocytes % (Manual) 5, Platelet Estimate Normal, RBC Morphology Normal 08/27/21 09:55: D-Dimer 2.26 H 08/27/21 09:55: Sodium 131 L, Potassium 3.5, Chloride 94 L, Carbon Dioxide 33 H, Anion Gap 7.5, BUN 18, Creatinine 0.70, Estimated Creat Clear 181, Estimated GFR 117, Est GFR ( Amer) 141, Glucose 301 H, Calcium 9.3, Total Bilirubin 1.4 H, AST 68 H, ALT 48, Alkaline Phosphatase 324 H, Troponin I < 0.01, Total Protein 6.8, Albumin 3.7, Globulin 3.1, Albumin/Globulin Ratio 1.2, Amylase 228 H 08/27/21 09:55: Lipase 1542 H 08/27/21 10:42: SARS-CoV-2 (PCR) Not detected, Influenza A Untype (PCR) Not detected, Influenza Type B (PCR) Not detected 08/27/21 12:10: Urine Color Yellow, Urine Appearance Clear, Urine pH 6.0, Ur Specific [place] 1.020, Urine Protein 3+, Urine Glucose (UA) 3+, Urine Ketones Negative, Urine Blood 1+, Urine Nitrate Negative, Urine Bilirubin Negative, Urine Urobilinogen 2.0, Ur Leukocyte Esterase Negative, Urine RBC 3-5, Urine WBC 3-5, Ur Squamous Epith Cells 3-5, Urine Bacteria None 08/27/21 14:53: PT 11.1, INR 0.98 08/27/21 19:55: POC Glucose 121 H 08/28/21 05:05: POC Glucose 109 08/28/21 06:08: Lipase 1774 H 08/28/21 06:08: WBC 11.6 H, RBC 5.00, Hgb 14.8, Hct 47.5, MCV 95.1 H, MCH 29.6, MCHC 31.2 L, RDW 15.8, Plt Count 200, MPV 8.7, Neut % (Auto) 80.4 H, Lymph % (Auto) 13.2, [place] % (Auto) 5.7, Eos % (Auto) 0.5, Baso % (Auto) 0.2, Neut # (Auto) 9.3 H, Lymph # (Auto) 1.5, [place] # (Auto) 0.7, Eos # (Auto) 0.1, Baso # (Auto) 0.0 08/28/21 06:08: Sodium 133 L, Potassium 3.5, Chloride 99, Carbon Dioxide 32 H, Anion Gap 5.5, BUN 19, Creatinine 0.70, Estimated Creat Clear 170, Estimated GFR 117, Est GFR ( Amer) 141, Glucose 112 H D, Calcium 8.6, Total Bilirubin 1.1, AST 76 H, ALT 44, Alkaline Phosphatase 294 H, Total Protein 6.1 L, Albumin 3.3 L D, Globulin 2.8, Albumin/Globulin Ratio 1.2 I & O for Last 24 hours: Intake & Output 0208/26/21 08/27/21 08/28/21 23:59 23:59 23:59 23:59 Intake Total 0 / 0 Output Total 0 / 0 Balance 0 / 0 Weight 215 lb 6 oz 225 lb 8 oz - Constitutional no acute distress - *Routine Neck Exam Present: trachea midline. Absent: tracheal deviation - *Routine Respiratory Exam Present: CTA bilaterally. Absent: accessory muscle use - *Routine Cardiovascular Exam Present: RRR - *Routine Abdominal Exam Present: soft, normoactive bowel sounds, tenderness Comments: Generalized abdominal tenderness - *Routine Extremities Exam Present: full ROM, pulses intact. Absent: cyanosis - *Routine Skin Exam Present: intact, dry. Absent: cyanosis, erythema - *Routine Neurological Exam Present: alert, oriented X3 - Routine Psychiatric Exam Present: normal affect, cooperative Assessment and Plan (1) Acute pancreatitis Status: Acute Qualifiers: Pancreatitis type: biliary Acute pancreatitis complication: no i
[2021-08-28 10:07] LABS: POC Glucose,Bedside 204 (70-110)
[2021-08-28 10:10] VITALS: BMI 33.3
[2021-08-28 11:29] LABS: POC Glucose,Bedside 119 (70-110)
[2021-08-28 14:55] VITALS: BP 188/96; PULSE 87; RESP 16; TEMP 37.1; O2SAT 92
[2021-08-28 18:30] LABS: POC Glucose,Bedside 124 (70-110)
[2021-08-28 20:00] VITALS: BP 188/84; PULSE 79; RESP 18; TEMP 36.8; O2SAT 90
[2021-08-28 22:40] LABS: POC Glucose,Bedside 106 (70-110)
[2021-08-29] VITALS (24 sets, daily range): BP systolic 120–188; BP diastolic 65–95; PULSE 74–104; RESP 12–22; TEMP 36.2–37; O2SAT 89–96; BMI 33.3
[2021-08-29 06:22] LABS: POC Glucose,Bedside 113 (70-110)
--- NOTE | 2021-08-29 06:56 | HMH.GSPN ---
Subjective Patient reports: feels better Progress Note: A&P (1) Acute pancreatitis Status: Acute Assessment and plan: Continuing to improve with regard to pain Follow-up a.m. labs Tentatively plan cholecystectomy later today (2) Liver masses Status: Acute (3) Lung mass Status: Acute (4) Gallstone Status: Acute (5) CAD (coronary artery disease) Status: Chronic (6) Chronic back pain greater than 3 months duration Status: Chronic (7) Diabetes Status: Chronic (8) Sacral nerve stimulator present Status: Chronic (9) Stented coronary artery Status: Chronic Exam Vital signs and Labs for Last 24 Hours: Temp Pulse Resp BP Pulse Ox 98.6 F 76 18 183/87 H 96 08/29/21 04:00 08/29/21 04:00 08/29/21 04:00 08/29/21 04:00 08/29/21 04:00 Laboratory Results - last 24 hr 08/27/21 16:30: POC Glucose 204 H 08/28/21 06:08: Lipase 1774 H 08/28/21 06:08: Carbon Dioxide 32 H, Anion Gap 5.5, BUN 19, Creatinine 0.70, Estimated Creat Clear 170, Estimated GFR 117, Est GFR ( Amer) 141, Glucose 112 H D, Calcium 8.6, Total Bilirubin 1.1, AST 76 H, ALT 44, Alkaline Phosphatase 294 H, Total Protein 6.1 L, Albumin 3.3 L D, Globulin 2.8, Albumin/Globulin Ratio 1.2 08/28/21 11:21: POC Glucose 119 H 08/28/21 16:26: POC Glucose 124 H 08/28/21 21:15: POC Glucose 106 08/29/21 05:33: POC Glucose 113 H I & O for Last 24 hours: Intake & Output 08/26/21 08/27/21 08/28/21 08/29/21 11:59 11:59 11:59 11:59 Intake Total 0 / 0 720 / 720 Output Total 0 / 0 620 / 620 Balance 0 / 0 100 / 100 Weight 240 lb 225 lb 4.999 oz 225 lb 4.999 oz - Constitutional no acute distress - *Routine Respiratory Exam Absent: respiratory distress - *Routine Cardiovascular Exam Absent: tachycardia - *Routine Abdominal Exam Present: soft
[2021-08-29 07:14] LABS: Basophils % 0.4 % (0.1-2.0); Eosinophils % 0.3 % (0.1-12.0); Hematocrit 45.1 % (42.0-52.0); Lymphocytes % 9.6 % (10-50); Mean Corpuscular HGB Conc 31.1 g/dL (31.8-35.4); Mean Corpuscular Hemoglobin 29.4 pg (27.0-31.2); Mean Corpuscular Volume 94.8 fl (80-94); Mean Platelet Volume 8.5 fl (7.4-10.4); Monocytes # 0.7 K/mm3 (0.1-1.0); Monocytes % 6.2 % (1.7-9.3); Neutrophils % 83.5 % (37.0-80.0); Platelet Count 163 K/mm3 (142-424); Red Blood Count 4.76 M/mm3 (4.60-6.20); Red Cell Distribution Width 15.7 % (11.5-17.5); White Blood Count 10.8 K/mm3 (4.8-10.8)
[2021-08-29 07:17] LABS: Chloride 100 mmol/L (98-107); Potassium 3.2 mmoL/L (3.5-5.1); Sodium 133 mmol/L (136-145)
[2021-08-29 07:19] LABS: Alanine Aminotransferase 47 U/L (12-78); Aspartate Amino Transferase 82 U/L (17-59); Blood Urea Nitrogen 13 mg/dl (9-20); Creatinine Clearance Estimated 170 mL/min (50-200); Estimated Glomerular Filt Rate 117 ml/min (>60); GFR (African American) 141 ML/MIN (>60)
[2021-08-29 07:20] LABS: Albumin Level 3.1 g/dl (3.5-5.0); Albumin/Globulin Ratio 1.1 (1.1-1.8); Alkaline Phosphatase 321 U/L (38-126); Anion Gap 5.2 mEq/L (5-15); Bilirubin,Total 1.5 mg/dl (0.2-1.3); Calcium 7.7 mg/dl (8.4-10.2); Carbon Dioxide 31 mmol/L (22.0-30.0); Globulin 2.8 g/dL (1.3-3.2); Glucose 99 mg/dl (74-100); Total Protein,Serum 5.9 g/dl (6.3-8.2)
[2021-08-29 07:32] LABS: Lipase 899 U/L (23-300)
--- NOTE | 2021-08-29 07:38 | PC.NURSE ---
0732 CRITICAL LAB VALUE LIPASE 899 RECEIVED FROM JEANMARIE RAE MLT. PT VERIFIED BY NAME AND DATE OF . REPEATED AND VERIFIED. 0734 DR. KEARNS NOTIFIED OF CRITICAL LIPASE 899, NO NEW ORDERS. R/V
--- NOTE | 2021-08-29 08:00 | PC.NURSE ---
[id number] SURGERY CONSENT SIGNED AT THIS TIME
--- NOTE | 2021-08-29 08:22 | P.PN_ITS ---
[facility] Anesthesia Checklist - Patient Identification Patient Identification: Arm Band - Structural Data Admitted From: Inpatient Planned Operative Procedure/s: Lap. cholecystectomy Consent for Planned Operative Procedure(s) Verified: Yes - NPO Status Verified Time NPO: 00:00 - Airway Assessment C-Spine Mobility Assessed: Yes TMJ Mobility Assessed: Yes Dentition: Good Dentition - Neurological Assessment Level of Consciousness: Awake Hx Seizures: No Numbness or tingling in extremities: No - Anesthesia Plan Anesthesia Risk discussed: Yes Anesthesia Plan: Verified ASA Class: III Anesthesia Type: General [facility] History I have reviewed the patient's past medical history: Yes Medical History: Reports:: Anxiety, Congenital Heart Disease, Coronary Artery Disease, Depression, Diabetes Mellitus Type 2, Gastroesophageal Reflux Disease(GERD), Hyperlipidemia, Hypertension, Lung Disease (Possible primary lung cancer) Denies:: Cancer, Diabetes Mellitus Type 1, MRSA *Have you ever received a pneumonia vaccine?: No *Have you received a flu vaccine this season?: Yes Anesthesia experience/problems:: None Other Surgeries: Yes: Cardiac Catheterization, Coronary Stent Amputation: No Fractures: Yes (RT wrist) - *Social History Last grade of school completed: Some college Smoking Status: Current every day smoker Tobacco Type: cigarettes # Packs/Day (cigarettes): 2 #Yrs smoked (if former smoker): 20 Alcohol Intake: current Alcohol Intake Frequency:: a few times a month Substance Use Type: denies use *Occupational Status:: employed Housing: house Household Members: spouse *Travel in the last 8 weeks: None - Psychiatric History Pschychiatric History:: Reports:: Anxiety, Depression Family Hx:: No significant family history
--- NOTE | 2021-08-29 08:56 | HMH.ACPN2 ---
Internal Medicine - PN: Subj *Date: 08/29/21 *Time: 19:36 Interval history: 55-year-old male patient resting in bed quietly with eyes closed, awakens to verbal stimuli. He reports he is basically the same as yesterday, pain meds have been administered for frequent reports of abdominal pain. He is scheduled for cholecystectomy with liver biopsy this afternoon. Exam Vital signs and Labs for Last 24 Hours: Temp Pulse Resp BP Pulse Ox 98.3 F 104 H 22 188/86 H 95 08/29/21 07:44 08/29/21 07:44 08/29/21 07:44 08/29/21 07:44 08/29/21 07:44 Laboratory Results - last 24 hr 08/27/21 16:30: POC Glucose 204 H 08/28/21 11:21: POC Glucose 119 H 08/28/21 16:26: POC Glucose 124 H 08/28/21 21:15: POC Glucose 106 08/29/21 05:33: POC Glucose 113 H 08/29/21 06:51: WBC 10.8, RBC 4.76, Hgb 14.0 L, Hct 45.1, MCV 94.8 H, MCH 29.4, MCHC 31.1 L, RDW 15.7, Plt Count 163, MPV 8.5, Neut % (Auto) 83.5 H, Lymph % (Auto) 9.6 L, [place] % (Auto) 6.2, Eos % (Auto) 0.3, Baso % (Auto) 0.4, Neut # (Auto) 9.0 H, Lymph # (Auto) 1.0, [place] # (Auto) 0.7, Eos # (Auto) 0.0, Baso # (Auto) 0.0 08/29/21 06:51: Sodium 133 L, Potassium 3.2 L, Chloride 100, Carbon Dioxide 31 H, Anion Gap 5.2, BUN 13 D, Creatinine 0.70, Estimated Creat Clear 170, Estimated GFR 117, Est GFR ( Amer) 141, Glucose 99, Calcium 7.7 L, Total Bilirubin 1.5 H, AST 82 H, ALT 47, Alkaline Phosphatase 321 H, Total Protein 5.9 L, Albumin 3.1 L, Globulin 2.8, Albumin/Globulin Ratio 1.1, Lipase 899 H I & O for Last 24 hours: Intake & Output 02/07/22 02/08/22 02/09/22 02/10/22 23:59 23:59 23:59 23:59 Intake Total 720 / 720 Output Total 620 / 620 0 / 0 Balance 100 / 100 0 / 0 Weight 215 lb 6 oz 225 lb 4.999 oz 225 lb 4.999 oz - Constitutional no acute distress - *Routine HEENT Exam Head: Present: normocephalic Eye: Present: EOMI ENT: Present: mucous membranes moist - *Routine Neck Exam Present: trachea midline. Absent: tracheal deviation - *Routine Respiratory Exam Present: CTA bilaterally. Absent: accessory muscle use - *Routine Cardiovascular Exam Present: RRR - *Routine Abdominal Exam Present: soft, normoactive bowel sounds, tenderness. Absent: firm - *Routine Extremities Exam Present: full ROM, pulses intact. Absent: cyanosis, clubbing - *Routine Skin Exam Present: intact, dry. Absent: cyanosis, erythema - *Routine Neurological Exam Present: alert, oriented X3. Absent: motor deficit - Routine Psychiatric Exam Present: normal affect, normal thought process. Absent: visual hallucinations Assessment and Plan (1) Acute pancreatitis Status: Acute Qualifiers: Pancreatitis type: biliary Acute pancreatitis complication: no infection or necrosis Qualified Code(s): K85.10 - Biliary acute pancreatitis without necrosis or infection Category: Medical Code(s): K85.90 - Acute pancreatitis without necrosis or infection, unspecified (2) Liver masses Status: Acute Category: Medical Code(s): R16.0 - Hepatomegaly, not elsewhere classified (3) Lung mass Status: Acute Category: Medical Code(s): R91.8 - Other nonspecific abnormal finding of lung field (4) Gallstone Status: Acute Category: Medical Code(s): K80.20 - Calculus of gallbladder without cholecystitis without obstruction (5) CAD (coronary artery disease) Status: Chronic Qualifiers: Coronary Disease-Associated Artery/Lesion type: [place] artery [place] vs. transplanted heart: [place] heart Associated angina: without angina Qualified Code(s): I25.10 - Atherosclerotic heart disease of [place] coronary artery without angina pectoris Category: Medical Code(s): I25.10 - Atherosclerotic heart disease of [place] coronary artery without angina pectoris (6) Chronic back pain greater than 3 months duration Status: Chronic Category: Medical Code(s): M54.9 - Dorsalgia, unspecified; G89.29 - Other chronic pain (7) Diabetes Status: Chronic Qu
--- NOTE | 2021-08-29 09:13 | HMH.ITSTN ---
Patient came down to Radiology for CT Head without contrast. Once the patient arrived to CT said he couldn't lay flat due to severe back pain. We told him that we could elevate his legs to take the pressure off his back and that everything was ready and this would be a quick scan. He did try to lay down but jump right up due to his back and the pain that it caused. I called his nurse and spoke with Jaci (OB nurse) and told her that he will not lay down due to back pain and she stated she had already given him pain medicine about 8 am and she could not give him anymore. I then spoke with the patient and ask what he wanted to do, go on and get the CT Head or go back upstairs since he couldn't have any more pain medicine. He stated he wanted to go back up stairs.
--- NOTE | 2021-08-29 09:32 | PC.NURSE ---
PT TO SURGERY AT THIS TIME PER BED
--- NOTE | 2021-08-29 09:36 | PC.NURSE ---
Ashly WAY NOTIFIED THAT PT WAS UNABLE TO TOLERATE HEAD CT, PT REFUSED
--- NOTE | 2021-08-29 11:15 | HMH.OPNOTE ---
Date of procedure: 08/29/21 Pre-op Diagnosis:: Acute calculus cholecystitis Gallstone pancreatitis Suspected metastatic disease to liver Post-op Diagnosis:: Same Procedure performed:: Laparoscopic cholecystectomy Liver biopsy Note: Intraoperative cholangiogram not performed secondary to infundibular thickening and inflammatory changes. Surgeon:: Link Espana MD PLASTIC PRODUCTION MACHINE SETTER:: Benjy Gecatie Anesthesia: GETA Estimated blood loss (mL): 15 Operative findings:: Multiple firm nodules throughout hepatic parenchyma Fairly severe infundibular thickening Inflammatory changes in and around cystic duct Operative note:: After informed consent was obtained, the patient was taken to the operating room and placed in the supine position. General anesthesia was induced and the abdomen was prepped and draped in a sterile fashion. After infiltration with local anesthetic an infraumbilical incision was made. A Veress needle was placed in position. The abdomen was insufflated. A 5 mm optical trocar was placed in position. Under direct visualization, a 12 mm trocar was placed in the subxiphoid position and 2 additional 5 mm trocars were placed in the right upper quadrant. Multiple nodules consistent with likely metastatic disease (as noted per recent CT scan) noted throughout liver parenchyma. The gallbladder was elevated up and over the liver margin. The tissue around the cystic duct was carefully dissected. Fairly severe thickening of the infundibulum and inflammatory changes noted. The decision was made to forego any attempts at intraoperative cholangiogram. 3 clips were placed proximally and the duct was transected with harmonic kelsey. Harmonic kelsey were then utilized to dissect the gallbladder away from the liver margin with careful attention to the control of the cystic artery. The gallbladder was placed in a retrieval bag and removed through the subxiphoid trocar site. The right upper quadrant was thoroughly irrigated. A nodule along the right anterior margin of the liver was carefully elevated and removed by way of harmonic kelsey. This was essentially a small wedge biopsy. The tissue was retrieved for pathologic evaluation and hemostasis was achieved with harmonic kelsey. No active bleeding or bile leak was noted. Fascia at the subxiphoid trocar site was reapproximated utilizing the NeoClose device. The remaining trocars were removed. All wounds were irrigated and skin was closed with 4-0 Monocryl in a subcuticular fashion. Steri-Strips were applied. The patient's anesthetic agents were reversed and extubation was completed prior to transfer to recovery in stable condition. Condition: stable Disposition: PACU Specimens:: Gallbladder Liver biopsy Complications:: No immediate
--- NOTE | 2021-08-29 11:22 | HMH.ANESI ---
[facility] Anesthesia Record Part I Intake, IV Amount: 500 Estimated blood loss (mL): 15 Urine output (mL): 0 Blood Pressure: 133/70 SaO2: 90 Pulse Rate: 81 Respiratory Rate: 12 Temperature: 97.1 F Patient is:: Drowsy, Oral/Nasal airway Stable to PACU at:: 11:21
[2021-08-29 11:55] LABS: POC Glucose,Bedside 122 (70-110)
--- NOTE | 2021-08-29 12:15 | PC.NURSE ---
1215 O2 APPLIED AT 2L/NC PT DROWSY FROM ANESTHESIA
--- NOTE | 2021-08-29 12:41 | PC.NURSE ---
1200 pt given urinal. pt unable to void at this time. MD notified. No further orders for PACU. states floor nurse may in and out cath if indicated once patient is to floor.
--- NOTE | 2021-08-29 13:12 | PC.NURSE ---
PT ATTEMPTING TO VOID, UNSUCCESSFUL, REFUSES TO HAVE IN/OUT CATH
--- NOTE | 2021-08-29 13:30 | PC.NURSE ---
1200 REPORT RECEIVED FROM Rogerio GOODE, RN 1215 PT TO FLOOR AT THIS TIME
--- NOTE | 2021-08-29 16:35 | PC.NURSE ---
PT RESTING AT INTERVALS, VSS UNCHANGED, B/P ELEVATED UNCHANGED. AFEBRILE. MEDICATED FREQUENTLY FOR PAIN. LAP SITES C/D/I. PT INCONTINENT OF BOWEL AND BLADDER ONCE THIS SHIFT. IV PATENT. NO ACUTE CHANGES. WILL CONTINUE TO MONITOR
[2021-08-29 21:01] LABS: POC Glucose,Bedside 151 (70-110)
[2021-08-30] VITALS (10 sets, daily range): BP systolic 149–178; BP diastolic 68–94; PULSE 80–115; RESP 16–22; TEMP 36.6–37.2; O2SAT 90–96; BMI 33.3
--- NOTE | 2021-08-30 05:40 | PC.NURSE ---
PATIENT COMPLAINED OF PAIN THRU THIS RN SHIFT. MEDICATIONS ADMINISTERED APPROPRIATELY. MINIMUM RELIEF.
[2021-08-30 06:34] LABS: Basophils % 0.2 % (0.1-2.0); Eosinophils % 0.2 % (0.1-12.0); Hematocrit 43.4 % (42.0-52.0); Hemoglobin 13.6 g/dL (14.1-18.0); Lymphocytes % 10.7 % (10-50); Mean Corpuscular HGB Conc 31.4 g/dL (31.8-35.4); Mean Corpuscular Hemoglobin 29.2 pg (27.0-31.2); Mean Corpuscular Volume 93.2 fl (80-94); Mean Platelet Volume 8.3 fl (7.4-10.4); Monocytes # 0.5 K/mm3 (0.1-1.0); Monocytes % 5.5 % (1.7-9.3); Neutrophils # 7.6 K/mm3 (1.8-7.8); Neutrophils % 83.4 % (37.0-80.0); Platelet Count 171 K/mm3 (142-424); Red Blood Count 4.66 M/mm3 (4.60-6.20); Red Cell Distribution Width 15.6 % (11.5-17.5); White Blood Count 9.2 K/mm3 (4.8-10.8)
[2021-08-30 06:38] LABS: Chloride 102 mmol/L (98-107); Sodium 133 mmol/L (136-145)
[2021-08-30 06:41] LABS: Alanine Aminotransferase 92 U/L (12-78); Albumin Level 2.8 g/dl (3.5-5.0); Albumin/Globulin Ratio 1.1 (1.1-1.8); Alkaline Phosphatase 381 U/L (38-126); Anion Gap 5.9 mEq/L (5-15); Aspartate Amino Transferase 165 U/L (17-59); Bilirubin,Total 1.6 mg/dl (0.2-1.3); Blood Urea Nitrogen 14 mg/dl (9-20); Calcium 7.4 mg/dl (8.4-10.2); Carbon Dioxide 28 mmol/L (22.0-30.0); Creatinine Clearance Estimated 170 mL/min (50-200); Estimated Glomerular Filt Rate 117 ml/min (>60); GFR (African American) 141 ML/MIN (>60); Globulin 2.5 g/dL (1.3-3.2); Glucose 124 mg/dl (74-100); Lipase 1153 U/L (23-300); Total Protein,Serum 5.3 g/dl (6.3-8.2)
[2021-08-30 06:52] LABS: Potassium 2.9 mmoL/L (3.5-5.1)
--- NOTE | 2021-08-30 06:54 | PC.NURSE ---
CRITICAL K+ 2.9 REPORTED TO THIS RN BY MANOLO. VERIFIED NAME AND .
--- NOTE | 2021-08-30 07:22 | P.PN_ITS ---
Subjective Patient reports: no new complaints (Feels OK . Incisional pain.) Progress Note: A&P (1) Acute pancreatitis Status: Acute Assessment and plan: Very slight increase in lipase noted on morning labs. Continue medical management as per primary service (2) Liver masses Status: Acute Assessment and plan: Biopsy completed at time of cholecystectomy. Pathology pending (3) Lung mass Status: Acute (4) Gallstone Status: Acute Assessment and plan: Overall, doing fairly well status post laparoscopic cholecystectomy. Mild elevation in liver function studies anticipated status post cholecystectomy. Intraoperative cholangiogram not completed secondary to focal inflammatory ch anges. Currently, there is no need for ERCP; however, this may become beneficial if bilirubin shows worsening elevation. (5) CAD (coronary artery disease) Status: Chronic (6) Chronic back pain greater than 3 months duration Status: Chronic (7) Diabetes Status: Chronic (8) Sacral nerve stimulator present Status: Chronic (9) Stented coronary artery Status: Chronic Exam Vital signs and Labs for Last 24 Hours: Temp Pulse Resp BP Pulse Ox 98.1 F 87 16 168/87 H 96 08/30/21 03:43 08/30/21 03:43 08/30/21 03:43 08/30/21 03:43 08/30/21 03:43 Laboratory Results - last 24 hr 08/29/21 06:51: WBC 10.8, RBC 4.76, Hgb 14.0 L, Hct 45.1, MCV 94.8 H, MCH 29.4, MCHC 31.1 L, RDW 15.7, Plt Count 163, MPV 8.5, Neut % (Auto) 83.5 H, Lymph % (Auto) 9.6 L, [place] % (Auto) 6.2, Eos % (Auto) 0.3, Baso % (Auto) 0.4, Neut # (Auto) 9.0 H, Lymph # (Auto) 1.0, [place] # (Auto) 0.7, Eos # (Auto) 0.0, Baso # (Auto) 0.0 08/29/21 06:51: Carbon Dioxide 31 H, Anion Gap 5.2, Glucose 99, Calcium 7.7 L, Total Bilirubin 1.5 H, Alkaline Phosphatase 321 H, Total Protein 5.9 L, Albumin 3.1 L, Globulin 2.8, Albumin/Globulin Ratio 1.1, Lipase 899 H 08/29/21 11:48: POC Glucose 122 H 08/29/21 20:50: POC Glucose 151 H 08/30/21 05:59: WBC 9.2, RBC 4.66, Hgb 13.6 L, Hct 43.4, MCV 93.2, MCH 29.2, MCHC 31.4 L, RDW 15.6, Plt Count 171, MPV 8.3, Neut % (Auto) 83.4 H, Lymph % (Auto) 10.7, [place] % (Auto) 5.5, Eos % (Auto) 0.2, Baso % (Auto) 0.2, Neut # (Auto) 7.6, Lymph # (Auto) 1.0, [place] # (Auto) 0.5, Eos # (Auto) 0.0, Baso # (Auto) 0.0 08/30/21 05:59: Sodium 133 L, Potassium 2.9 L*, Chloride 102, Carbon Dioxide 28, Anion Gap 5.9, BUN 14, Creatinine 0.70, Estimated Creat Clear 170, Estimated GFR 117, Est GFR ( Amer) 141, Glucose 124 H D, Calcium 7.4 L, Total Bilirubin 1.6 H, AST 165 H D, ALT 92 H D, Alkaline Phosphatase 381 H, Total Protein 5.3 L, Albumin 2.8 L, Globulin 2.5, Albumin/Globulin Ratio 1.1, Lipase 1153 H I & O for Last 24 hours: Intake & Output 08/27/21 08/28/21 08/29/21 08/30/21 11:59 11:59 11:59 11:59 Intake Total 0 / 0 1220 / 1220 120 / 120 Output Total 0 / 0 620 / 620 0 / 0 Balance 0 / 0 600 / 600 120 / 120 Weight 240 lb 225 lb 4.999 oz 225 lb 4.999 oz 225 lb 4 oz - Constitutional no acute distress - *Routine Respiratory Exam Absent: respiratory distress - *Routine Cardiovascular Exam Absent: tachycardia - *Routine Abdominal Exam Comments: Dressings intact. No spreading cellulitis.
--- NOTE | 2021-08-30 08:31 | PC.NURSE ---
ensured senior electrical designer was aware of patient potassium level
--- NOTE | 2021-08-30 08:39 | HMH.ACPN2 ---
Internal Medicine - PN: Subj *Date: 08/30/21 *Time: 08:15 Interval history: pt states abd tenderness Exam Vital signs and Labs for Last 24 Hours: Temp Pulse Resp BP Pulse Ox 98.9 F 104 H 18 169/82 H 90 L 08/30/21 07:27 08/30/21 07:27 08/30/21 07:27 08/30/21 07:27 08/30/21 07:27 Laboratory Results - last 24 hr 08/29/21 11:48: POC Glucose 122 H 08/29/21 20:50: POC Glucose 151 H 08/30/21 05:59: WBC 9.2, RBC 4.66, Hgb 13.6 L, Hct 43.4, MCV 93.2, MCH 29.2, MCHC 31.4 L, RDW 15.6, Plt Count 171, MPV 8.3, Neut % (Auto) 83.4 H, Lymph % (Auto) 10.7, [place] % (Auto) 5.5, Eos % (Auto) 0.2, Baso % (Auto) 0.2, Neut # (Auto) 7.6, Lymph # (Auto) 1.0, [place] # (Auto) 0.5, Eos # (Auto) 0.0, Baso # (Auto) 0.0 08/30/21 05:59: Sodium 133 L, Potassium 2.9 L*, Chloride 102, Carbon Dioxide 28, Anion Gap 5.9, BUN 14, Creatinine 0.70, Estimated Creat Clear 170, Estimated GFR 117, Est GFR ( Amer) 141, Glucose 124 H D, Calcium 7.4 L, Total Bilirubin 1.6 H, AST 165 H D, ALT 92 H D, Alkaline Phosphatase 381 H, Total Protein 5.3 L, Albumin 2.8 L, Globulin 2.5, Albumin/Globulin Ratio 1.1, Lipase 1153 H I & O for Last 24 hours: Intake & Output 08/27/21 08/28/21 08/29/21 08/30/21 11:59 11:59 11:59 11:59 Intake Total 0 / 0 1220 / 1220 480 / 480 Output Total 0 / 0 620 / 620 0 / 0 Balance 0 / 0 600 / 600 480 / 480 Weight 240 lb 225 lb 4.999 oz 225 lb 4.999 oz 225 lb 4 oz - Constitutional no acute distress - *Routine HEENT Exam Head: Present: normocephalic Eye: Present: PERRL ENT: Present: mucous membranes moist - *Routine Neck Exam Present: supple. Absent: lymphadenopathy - *Routine Respiratory Exam Present: CTA bilaterally - *Routine Cardiovascular Exam Present: RRR - *Routine Abdominal Exam Present: soft, normoactive bowel sounds, tenderness - *Routine Extremities Exam Absent: cyanosis, clubbing, edema - *Routine Skin Exam Present: warm. Absent: rash - *Routine Neurological Exam Present: alert, oriented X3 Assessment and Plan (1) Acute pancreatitis Status: Acute Qualifiers: Pancreatitis type: biliary Acute pancreatitis complication: no infection or necrosis Qualified Code(s): K85.10 - Biliary acute pancreatitis without necrosis or infection Category: Medical Code(s): K85.90 - Acute pancreatitis without necrosis or infection, unspecified (2) Liver masses Status: Acute Category: Medical Code(s): R16.0 - Hepatomegaly, not elsewhere classified (3) Lung mass Status: Acute Category: Medical Code(s): R91.8 - Other nonspecific abnormal finding of lung field (4) Gallstone Status: Acute Category: Medical Code(s): K80.20 - Calculus of gallbladder without cholecystitis without obstruction (5) CAD (coronary artery disease) Status: Chronic Qualifiers: Coronary Disease-Associated Artery/Lesion type: [place] artery [place] vs. transplanted heart: [place] heart Associated angina: without angina Qualified Code(s): I25.10 - Atherosclerotic heart disease of [place] coronary artery without angina pectoris Category: Medical Code(s): I25.10 - Atherosclerotic heart disease of [place] coronary artery without angina pectoris (6) Chronic back pain greater than 3 months duration Status: Chronic Category: Medical Code(s): M54.9 - Dorsalgia, unspecified; G89.29 - Other chronic pain (7) Diabetes Status: Chronic Qualifiers: Diabetes mellitus type: type 2 Diabetes mellitus fpc insulin use: without fpc use Diabetes mellitus complication status: with circulatory complication Diabetes mellitus complication detail: with other circulatory complications Qualified Code(s): E11.59 - Type 2 diabetes mellitus with other circulatory complications Category: Medical Code(s): E11.9 - Type 2 diabetes mellitus without complications (8) Sacral nerve stimulator present Status: Chronic Category: Medical Code(s): Z96.82 - Presence of neurostimulator
--- NOTE | 2021-08-30 08:41 | CT_ITS ---
FINAL REPORT TECHNIQUE: TECHNIQUE: Axial images of the head were obtained with contrast. Coronal reformatted images were also obtained.This study was performed with techniques to keep radiation doses as low as reasonably achievable (ALARA). Individualized dose reduction techniques using automated exposure control or adjustment of mA and/or kV according to the patient's size were employed. CLINICAL HISTORY: metastatic lung cancer COMPARISON: July 31, 2021 FINDINGS: CT HEAD WITHOUT CONTRAST There is no evidence of intracranial hemorrhage or mass. The ventricular size is within normal limits. There is no evidence of shift of the midline structures. No abnormal extra axial fluid collection is identified. No skull abnormality is seen on the bone window images. There is no abnormal contrast enhancement. IMPRESSION: No acute intracranial abnormality. No evidence of metastatic disease. Reviewed, Interpreted and Dictated by Víctor Lopez III, MD Transcribed by Joyce Robison Authenticated by Víctor Lopez III, MD on 08/30/2021 01:11:27 PM [facility]
--- NOTE | 2021-08-30 10:53 | HMH.ANESII ---
[facility] Anesthesia Record Part II Discharge Time: 12:21 Destination: Second Floor PACU nurse assessment reviewed?: Yes Patient Condition:: Good Anesthesia Complications:: None Swallowing reflex intact?: Yes Cyanosis?: No Blood Pressure: 150/94 Pulse Rate: 88 Temperature: 97.8 F Mental Status: Alert & Oriented Pain level:: 0 Nausea and/or vomitting:: None Intake, IV Amount: 0
[2021-08-30 12:19] LABS: POC Glucose,Bedside 155 (70-110)
[2021-08-30 16:19] LABS: Troponin I < 0.01 ng/ml (0.00-0.034)
--- NOTE | 2021-08-30 17:17 | PC.NURSE ---
patient has complained about shoulder pain most of day. appears to be gas pain related. been in contact multiple times with md office. gave a one time dose of simethicone, and dr leong reordered dilaudid. however, percocet is dced now per delia frost. also added heating pad to shoulder. also got patient up and had him walk in the paez, and sit up in chair. also encouraging incentive spirometer. after these measures were done patient pain is starting to become more tolerable. still having some pain but no where near as bad as earlier in day. since decreasing pain medication patient is noted to be more awake this evening. patient also noted to have low o2 sats around lunch, but has since come back up and is not requiring any oxygen. troponin was also ordered. no other complaints noted. vitals stable. rings out as needed. new iv in l upper arm that was ultrasound guided.
[2021-08-30 21:19] LABS: POC Glucose,Bedside 129 (70-110)
[2021-08-30 21:19] LABS: POC Glucose,Bedside 171 (70-110)
[2021-08-31] VITALS (12 sets, daily range): BP systolic 168–210; BP diastolic 78–110; PULSE 90–100; RESP 16–22; TEMP 36.9–37.2; O2SAT 90–98; BMI 34.6
--- NOTE | 2021-08-31 04:48 | PC.NURSE ---
PATIENT HAS HAD POOR PAIN CONTROL THRU THIS RN SHIFT. PATIENT AMBULATED 2X IN HALLWAY. 0400 VITAL SIGN CHECK BP WAS 198/90. THIS RN ADMINISTERED VASOTEC 1.25MG ORDERED. BP RECHECKED AT 0430; 180/80. NO OTHER CONCERNS OR COMPLAINTS NOTED.
[2021-08-31 05:55] LABS: Basophils % 0.4 % (0.1-2.0); Eosinophils % 0.4 % (0.1-12.0); Hematocrit 43.4 % (42.0-52.0); Hemoglobin 13.7 g/dL (14.1-18.0); Lymphocytes # 1.1 K/mm3 (0.7-4.5); Lymphocytes % 11.5 % (10-50); Mean Corpuscular HGB Conc 31.7 g/dL (31.8-35.4); Mean Corpuscular Hemoglobin 29.6 pg (27.0-31.2); Mean Corpuscular Volume 93.3 fl (80-94); Mean Platelet Volume 8.3 fl (7.4-10.4); Monocytes # 0.5 K/mm3 (0.1-1.0); Monocytes % 5.3 % (1.7-9.3); Neutrophils # 7.5 K/mm3 (1.8-7.8); Neutrophils % 82.3 % (37.0-80.0); Platelet Count 183 K/mm3 (142-424); Red Blood Count 4.65 M/mm3 (4.60-6.20); Red Cell Distribution Width 15.8 % (11.5-17.5); White Blood Count 9.1 K/mm3 (4.8-10.8)
[2021-08-31 06:04] LABS: Chloride 99 mmol/L (98-107); Sodium 130 mmol/L (136-145)
[2021-08-31 06:07] LABS: Anion Gap 4.6 mEq/L (5-15); Blood Urea Nitrogen 6 mg/dl (9-20); Calcium 7.2 mg/dl (8.4-10.2); Carbon Dioxide 29 mmol/L (22.0-30.0); Creatinine Clearance Estimated 206 mL/min (50-200); Estimated Glomerular Filt Rate 139 ml/min (>60); GFR (African American) 169 ML/MIN (>60); Glucose 127 mg/dl (74-100)
[2021-08-31 06:25] LABS: Potassium 2.6 mmoL/L (3.5-5.1)
--- NOTE | 2021-08-31 07:34 | PC.NURSE ---
THIS RN RECEIVED A CRITICAL NOTIFICATION OF PATIENT K+ 2.6 FROM JULIANN IN LAB. PATIENTS NAME, AND ROOM NUMBER VERIFIED AND REPEATED. THIS RN PAGED MD SOFT BOARDER, PER DR. CABEZAS, ADMINISTER 1X ONLY 20MEQ POTASSIUM NOW AND INFORM MD WHEN ROUNDING. THIS RN RECEIVED A PHONE CALL FROM DR. CORTEZ TO CHANGE PATIENT'S DILAUDID ADMINISTRATION TO EVERY 2HRS PRN, ORDERED TORADOL 30MG IV Q6HRS PRN FOR PAIN, TYLENOL 650MG PO Q6HRS PRN FOR HEADACHE. THIS RN INFORMED MD OF K+ LEVEL AND PLAN FOR IV K+ ADMINISTRATION. PER DR. CORTEZ, DO NOT ADMINISTER IV K+. MD ORDERED 20MEQ PO NOW AND ANOTHER 20MEQ IN 2HRS. ORDERS PLACED AND PATIENT WAS INFORMED.
--- NOTE | 2021-08-31 09:09 | HMH.ACPN2 ---
Internal Medicine - PN: Subj *Date: 08/31/21 *Time: 09:11 Interval history: pt with ongoing pain and limited po intake - no vomiting but nausea - labs show low k and lft and lipase pending Exam Vital signs and Labs for Last 24 Hours: Temp Pulse Resp BP Pulse Ox 98.6 F 94 H 16 189/91 H 91 L 08/31/21 08:00 08/31/21 08:00 08/31/21 08:00 08/31/21 08:00 08/31/21 08:00 Laboratory Results - last 24 hr 08/30/21 05:12: POC Glucose 129 H 08/30/21 12:04: POC Glucose 155 H 08/30/21 15:18: Troponin I < 0.01 08/30/21 16:38: POC Glucose 171 H 08/31/21 05:32: WBC 9.1, RBC 4.65, Hgb 13.7 L, Hct 43.4, MCV 93.3, MCH 29.6, MCHC 31.7 L, RDW 15.8, Plt Count 183, MPV 8.3, Neut % (Auto) 82.3 H, Lymph % (Auto) 11.5, [place] % (Auto) 5.3, Eos % (Auto) 0.4, Baso % (Auto) 0.4, Neut # (Auto) 7.5, Lymph # (Auto) 1.1, [place] # (Auto) 0.5, Eos # (Auto) 0.0, Baso # (Auto) 0.0 08/31/21 05:32: Sodium 130 L, Potassium 2.6 L*, Chloride 99, Carbon Dioxide 29, Anion Gap 4.6 L, BUN 6 L D, Creatinine 0.60 L, Estimated Creat Clear 206, Estimated GFR 139, Est GFR ( Amer) 169, Glucose 127 H, Calcium 7.2 L I & O for Last 24 hours: Intake & Output 08/28/21 08/29/21 08/30/21 08/31/21 11:59 11:59 11:59 11:59 Intake Total 0 / 0 1220 / 1220 480 / 480 600 / 600 Output Total 0 / 0 620 / 620 0 / 0 Balance 0 / 0 600 / 600 480 / 480 600 / 600 Weight 225 lb 4.999 oz 225 lb 4.999 oz 225 lb 4 oz 233 lb 9.6 oz Microbiology Reports for the Last 24 Hours: Microbiology 08/28/21 09:53 Blood Blood Culture - Preliminary NO GROWTH AFTER 48 HOURS 08/28/21 09:47 Blood Blood Culture - Preliminary NO GROWTH AFTER 48 HOURS - Constitutional no acute distress, obese - *Routine HEENT Exam Head: Present: normocephalic Eye: Present: EOMI, PERRL. Absent: conjunctival icterus ENT: Present: mucous membranes dry - *Routine Neck Exam Absent: JVD - *Routine Respiratory Exam Present: CTA bilaterally - *Routine Cardiovascular Exam Present: RRR - *Routine Abdominal Exam Present: tenderness. Absent: rebound - *Routine Extremities Exam Absent: calf tenderness - *Routine Skin Exam Present: intact - *Routine Neurological Exam Present: alert, oriented X3, CN II-XII intact - Routine Psychiatric Exam Present: normal affect Assessment and Plan (1) Acute pancreatitis Status: Acute Qualifiers: Pancreatitis type: biliary Acute pancreatitis complication: no infection or necrosis Qualified Code(s): K85.10 - Biliary acute pancreatitis without necrosis or infection Category: Medical Code(s): K85.90 - Acute pancreatitis without necrosis or infection, unspecified (2) Liver masses Status: Acute Category: Medical Code(s): R16.0 - Hepatomegaly, not elsewhere classified (3) Lung mass Status: Acute Category: Medical Code(s): R91.8 - Other nonspecific abnormal finding of lung field (4) Gallstone Status: Acute Category: Medical Code(s): K80.20 - Calculus of gallbladder without cholecystitis without obstruction (5) CAD (coronary artery disease) Status: Chronic Qualifiers: Coronary Disease-Associated Artery/Lesion type: [place] artery [place] vs. transplanted heart: [place] heart Associated angina: without angina Qualified Code(s): I25.10 - Atherosclerotic heart disease of [place] coronary artery without angina pectoris Category: Medical Code(s): I25.10 - Atherosclerotic heart disease of [place] coronary artery without angina pectoris (6) Chronic back pain greater than 3 months duration Status: Chronic Category: Medical Code(s): M54.9 - Dorsalgia, unspecified; G89.29 - Other chronic pain (7) Diabetes Status: Chronic Qualifiers: Diabetes mellitus type: type 2 Diabetes mellitus buttermaker helper insulin use: without residential use Diabetes mellitus complication status: with circulatory complication Diabetes mellitus complication detail:
[2021-08-31 09:38] LABS: Alanine Aminotransferase 102 U/L (12-78); Alkaline Phosphatase 422 U/L (38-126); Aspartate Amino Transferase 136 U/L (17-59); Bilirubin,Direct 0.9 mg/dl (0.0-0.4); Bilirubin,Indirect 0.7 mg/dL (0.0-0.9); Bilirubin,Total 1.6 mg/dl (0.2-1.3); Bilirubin,Unconjugated 0.7 mg/dL (0.0-1.1); Total Protein,Serum 5.6 g/dl (6.3-8.2)
[2021-08-31 09:42] LABS: Lipase 844 U/L (23-300)
--- NOTE | 2021-08-31 09:57 | HMH.GSPN ---
Subjective Narrative: Patient complains of abdominal pain and soreness . He wonders if his pain medicine can be increased. He knows exact minute he is allowed additional pain medicine. Laboratory evaluation reveals some hypokalemia. Lipase improving. Liver function tests comparable to yesterday's values. Progress Note: A&P (1) Acute pancreatitis Status: Acute (2) Liver masses Status: Acute (3) Lung mass Status: Acute (4) Gallstone Status: Acute (5) CAD (coronary artery disease) Status: Chronic (6) Chronic back pain greater than 3 months duration Status: Chronic (7) Diabetes Status: Chronic (8) Sacral nerve stimulator present Status: Chronic (9) Stented coronary artery Status: Chronic (10) Obesity (BMI 30.0-34.9) Status: Acute (11) Hypokalemia Status: Acute Assessment and Plan for All Diagnoses:: Continue care as per primary service. May add scheduled Toradol as an anti-inflammatory. Exam Vital signs and Labs for Last 24 Hours: Temp Pulse Resp BP Pulse Ox 98.6 F 94 H 16 189/91 H 91 L 08/31/21 08:00 08/31/21 08:00 08/31/21 08:00 08/31/21 08:00 08/31/21 08:00 Laboratory Results - last 24 hr 08/30/21 05:12: POC Glucose 129 H 08/30/21 12:04: POC Glucose 155 H 08/30/21 15:18: Troponin I < 0.01 08/30/21 16:38: POC Glucose 171 H 08/31/21 05:32: WBC 9.1, RBC 4.65, Hgb 13.7 L, Hct 43.4, MCV 93.3, MCH 29.6, MCHC 31.7 L, RDW 15.8, Plt Count 183, MPV 8.3, Neut % (Auto) 82.3 H, Lymph % (Auto) 11.5, [place] % (Auto) 5.3, Eos % (Auto) 0.4, Baso % (Auto) 0.4, Neut # (Auto) 7.5, Lymph # (Auto) 1.1, [place] # (Auto) 0.5, Eos # (Auto) 0.0, Baso # (Auto) 0.0 08/31/21 05:32: Sodium 130 L, Potassium 2.6 L*, Chloride 99, Carbon Dioxide 29, Anion Gap 4.6 L, BUN 6 L D, Creatinine 0.60 L, Estimated Creat Clear 206, Estimated GFR 139, Est GFR ( Amer) 169, Glucose 127 H, Calcium 7.2 L 08/31/21 08:59: Total Bilirubin 1.6 H, Direct Bilirubin 0.9 H, Conjugated Bilirubin 0.0, Indirect Bilirubin 0.7, Unconjugated Bilirubin 0.7, AST 136 H, ALT 102 H, Alkaline Phosphatase 422 H, Total Protein 5.6 L, Albumin 3.0 L, Lipase 844 H I & O for Last 24 hours: Intake & Output 08/28/21 08/29/21 08/30/21 08/31/21 11:59 11:59 11:59 11:59 Intake Total 0 / 0 1220 / 1220 480 / 480 600 / 600 Output Total 0 / 0 620 / 620 0 / 0 Balance 0 / 0 600 / 600 480 / 480 600 / 600 Weight 225 lb 4.999 oz 225 lb 4.999 oz 225 lb 4 oz 233 lb 9.6 oz Microbiology Reports for the Last 24 Hours: Microbiology 08/28/21 09:53 Blood Blood Culture - Preliminary NO GROWTH AFTER 48 HOURS 08/28/21 09:47 Blood Blood Culture - Preliminary NO GROWTH AFTER 48 HOURS - *Routine Abdominal Exam Present: soft, tenderness
--- NOTE | 2021-08-31 10:08 | PC.NURSE ---
Dr. Larson consulting sales manager for Dr. Cavazos, he was notified of critical lipase of 844.
--- NOTE | 2021-08-31 19:10 | PC.NURSE ---
Pts bp was 210/110 manually. This RN called Dr. Larson data control assistant for Dr. Cavazos and he ordered hydralizine per mar as well as clonidine per mar. Also received order to decrease 75 ML/HR IVF's.
[2021-08-31 20:46] LABS: POC Glucose,Bedside 130 (70-110)
[2021-08-31 22:19] LABS: POC Glucose,Bedside 137 (70-110)
[2021-09-01] VITALS: BP 177/85; PULSE 100; PULSE 90; RESP 18; TEMP 36.9; O2SAT 95
[2021-09-01 04:00] VITALS: BP 190/84; PULSE 90; RESP 18; TEMP 36.7; O2SAT 93
[2021-09-01 05:00] VITALS: BMI 34.7
[2021-09-01 07:10] LABS: POC Glucose,Bedside 108 (70-110)
[2021-09-01 07:34] VITALS: BP 189/110; PULSE 88; RESP 18; TEMP 36.6; O2SAT 90
[2021-09-01 08:00] VITALS: PULSE 90; O2SAT 90
[2021-09-01 09:04] LABS: Chloride 99 mmol/L (98-107); Sodium 130 mmol/L (136-145)
[2021-09-01 09:07] LABS: Blood Urea Nitrogen 9 mg/dl (9-20); Calcium 7.4 mg/dl (8.4-10.2); Carbon Dioxide 30 mmol/L (22.0-30.0); Creatinine Clearance Estimated 207 mL/min (50-200); Estimated Glomerular Filt Rate 139 ml/min (>60); GFR (African American) 169 ML/MIN (>60); Glucose 106 mg/dl (74-100)
--- NOTE | 2021-09-01 09:18 | HMH.GSPN ---
Subjective Narrative: Patient states that he feels better. Taking clear liquid diet. Progress Note: A&P (1) Acute pancreatitis Status: Acute (2) Liver masses Status: Acute (3) Lung mass Status: Acute (4) Gallstone Status: Acute (5) CAD (coronary artery disease) Status: Chronic (6) Chronic back pain greater than 3 months duration Status: Chronic (7) Diabetes Status: Chronic (8) Sacral nerve stimulator present Status: Chronic (9) Stented coronary artery Status: Chronic (10) Obesity (BMI 30.0-34.9) Status: Acute (11) Hypokalemia Status: Acute Assessment and Plan for All Diagnoses:: Care per primary team. Exam Vital signs and Labs for Last 24 Hours: Temp Pulse Resp BP Pulse Ox 97.9 F 90 18 189/110 H 90 L 09/01/21 07:34 09/01/21 08:00 09/01/21 07:34 09/01/21 07:34 09/01/21 08:00 Laboratory Results - last 24 hr 08/31/21 04:33: POC Glucose 137 H 08/31/21 08:59: Total Bilirubin 1.6 H, Direct Bilirubin 0.9 H, Conjugated Bilirubin 0.0, Indirect Bilirubin 0.7, Unconjugated Bilirubin 0.7, AST 136 H, ALT 102 H, Alkaline Phosphatase 422 H, Total Protein 5.6 L, Albumin 3.0 L, Lipase 844 H 08/31/21 20:25: POC Glucose 130 H 09/01/21 06:02: POC Glucose 108 09/01/21 08:15: Sodium 130 L, Potassium 3.0 L, Chloride 99, Carbon Dioxide 30, Anion Gap 4.0 L, BUN 9 D, Creatinine 0.60 L, Estimated Creat Clear 207, Estimated GFR 139, Est GFR ( Amer) 169, Glucose 106 H, Calcium 7.4 L I & O for Last 24 hours: Intake & Output 08/29/21 08/30/21 08/31/21 09/01/21 11:59 11:59 11:59 11:59 Intake Total 1220 / 1220 480 / 480 600 / 600 1531 / 1531 Output Total 620 / 620 0 / 0 200 / 200 Balance 600 / 600 480 / 480 600 / 600 1331 / 1331 Weight 225 lb 4.999 oz 225 lb 4 oz 233 lb 9.6 oz 234 lb 3.2 oz - *Routine Abdominal Exam Present: soft. Absent: tenderness
--- NOTE | 2021-09-01 11:03 | HMH.ACPN ---
Internal Medicine - PN: Subj *Date: 09/01/21 *Time: 11:03 Exam Vital signs and Labs for Last 24 Hours: Temp Pulse Resp BP Pulse Ox 97.9 F 90 18 189/110 H 90 L 09/01/21 07:34 09/01/21 08:00 09/01/21 07:34 09/01/21 07:34 09/01/21 08:00 Laboratory Results - last 24 hr 08/31/21 04:33: POC Glucose 137 H 08/31/21 20:25: POC Glucose 130 H 09/01/21 06:02: POC Glucose 108 09/01/21 08:15: Sodium 130 L, Potassium 3.0 L, Chloride 99, Carbon Dioxide 30, Anion Gap 4.0 L, BUN 9 D, Creatinine 0.60 L, Estimated Creat Clear 207, Estimated GFR 139, Est GFR ( Amer) 169, Glucose 106 H, Calcium 7.4 L I & O for Last 24 hours: Intake & Output 08/29/21 08/30/21 08/31/21 09/01/21 23:59 23:59 23:59 23:59 Intake Total 620 / 620 660 / 780 540 / 540 1291 / 1291 Output Total 0 / 0 200 / 200 Balance 620 / 620 660 / 780 340 / 340 1291 / 1291 Weight 102.2 kg 102.172 kg 105.959 kg 106.231 kg Assessment and Plan (1) Acute pancreatitis Status: Acute Qualifiers: Pancreatitis type: biliary Acute pancreatitis complication: no infection or necrosis Qualified Code(s): K85.10 - Biliary acute pancreatitis without necrosis or infection Category: Medical Code(s): K85.90 - Acute pancreatitis without necrosis or infection, unspecified (2) Liver masses Status: Acute Category: Medical Code(s): R16.0 - Hepatomegaly, not elsewhere classified (3) Lung mass Status: Acute Category: Medical Code(s): R91.8 - Other nonspecific abnormal finding of lung field (4) Gallstone Status: Acute Category: Medical Code(s): K80.20 - Calculus of gallbladder without cholecystitis without obstruction (5) CAD (coronary artery disease) Status: Chronic Qualifiers: Coronary Disease-Associated Artery/Lesion type: [place] artery [place] vs. transplanted heart: [place] heart Associated angina: without angina Qualified Code(s): I25.10 - Atherosclerotic heart disease of [place] coronary artery without angina pectoris Category: Medical Code(s): I25.10 - Atherosclerotic heart disease of [place] coronary artery without angina pectoris (6) Chronic back pain greater than 3 months duration Status: Chronic Category: Medical Code(s): M54.9 - Dorsalgia, unspecified; G89.29 - Other chronic pain (7) Diabetes Status: Chronic Qualifiers: Diabetes mellitus type: type 2 Diabetes mellitus fpc insulin use: without terminal manager use Diabetes mellitus complication status: with circulatory complication Diabetes mellitus complication detail: with other circulatory complications Qualified Code(s): E11.59 - Type 2 diabetes mellitus with other circulatory complications Category: Medical Code(s): E11.9 - Type 2 diabetes mellitus without complications (8) Sacral nerve stimulator present Status: Chronic Category: Medical Code(s): Z96.82 - Presence of neurostimulator (9) Stented coronary artery Status: Chronic Category: Surgical Code(s): Z95.5 - Presence of coronary angioplasty implant and graft (10) Obesity (BMI 30.0-34.9) Status: Acute Category: Medical Code(s): E66.9 - Obesity, unspecified (11) Hypokalemia Status: Acute Category: Medical Code(s): E87.6 - Hypokalemia The patient's infection will respond to the chosen ABx?: Yes Is the patient receiving the right drug, dose, and route?: Yes Could a more targeted ABx be ordered?: No (BLD CX -(X2), AFEBRILE, WBC WNL)
[2021-09-01 11:16] VITALS: BP 176/106; PULSE 90; RESP 16; TEMP 36.4; O2SAT 91
[2021-09-01 12:00] VITALS: PULSE 80
--- NOTE | 2021-09-01 12:26 | HMH.DCSUM ---
General - General Admission date:: 08/27/21 Discharge date: 09/01/21 HPI HPI: Patient is a 55-year-old white male, known to me from my practice, who was admitted from the emergency room earlier today. He presented to the ER with chest pain and abdominal pain. Patient has a known history of coronary artery disease, status post stent deployment. His troponin was negative. Patient has a known history of gallstones. His amylase and lipase were both elevated. Initial chest imaging included x-ray which showed a hazy infiltrative pattern. The patient had recently been diagnosed with Covid, was thought to have neuritic pain. Further imaging of the chest was prompted by an elevated D-dimer. CT the chest demonstrated multiple pulmonary nodules and mediastinal adenopathy suggestive of primary pulmonary neoplasm. CT imaging of the abdomen revealed signs of gallstones and widespread hepatic metastases. Patient had CT abdomen done in April of last year which showed fatty changes in the liver only. Patient's pain has been relieved with Dilaudid and Toradol IV. Dr. Mcduffie has seen and evaluated the patient, has proposed cholecystectomy once pancreatitis improves. A biopsy of hepatic lesions a be feasible at that time. Patient has a longstanding tobacco history, 2 packs/day. The likelihood of primary lung cancer is very high. This was discussed in detail with the patient and his family. 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 Hospital Course Hospital Course: The patient was seen and admitted from the emergency room with atypical chest pain, abdominal pain, and pancreatitis in the setting of known gallstones. He was given aggressive analgesia was significantly uncomfortable. He was assessed by general surgery and taken to the operating room on August 29 2021. A laparoscopic gallbladder was done, however significant inflammatory changes precluded delineation of a retained stone in the duct work. Multiple solid attic nodules were noted, biopsies were taken, pathology is pending at the time of discharge. Imaging done in the emergency room was prompted by an elevated D-dimer. CAT scan showed multiple nodules and significant mediastinal adenopathy thought to be the generator of his chest pain. Subsequent studies of his abdomen showed patients in the liver consistent with widespread hepatic metastatic disease. Patient has been tolerating clear liquids well. He still has significant comfort which we assume is related to the neoplasm. His mentation is back to baseline. CT done with contrast revealed no suggestion of metastatic disease. Patient is interested in oral to a tertiary center as an outpatient for further evaluation of his neoplastic process. Working diagnosis is primary lung cancer with liver mets. She has a 2 pack/day for the smoking history. I will send him out on an aggressive regimen for pain and follow him up in the office at a short interval. Objective Vital signs: Temp Pulse Resp BP Pulse Ox 97.6 F 90 16 176/106 H 91 L 09/01/21 11:16 09/01/21 11:16 09/01/21 11:16 09/01/21 11:16 09/01/21 11:16 obese, chronically ill appearing, cooperative - *Routine HEENT Exam Head: Present: normocephalic Eye: Present: EOMI, PERRL ENT: Present: mucous membranes moist - *Routine Neck Exam Present: supple - *Routine Respiratory Exam Present: CTA bilaterally - *Routine Cardiovascular Exam Present: RRR - *Routine Abdominal Exam Present: soft, tenderness, obese, surgical scars. Absent: rebound, mass - *Routine Extremities Exam Absent: cyanosis, clubbing, edema - *Routine Skin Exam Present: warm. Absent: jaundice, rash Results Labs on day of discharge: Labs from last 24 hours 09/01/21 09/01/21 08/31/21 08:15 06:02 20:25 Sodium 130 L Potassium 3.0 L Chloride 99 Carbon Dioxide 30 Anion Gap 4.0 L
--- NOTE | 2021-09-01 13:18 | PC.NURSE ---
Pt stated it will take his brother a little over an hour to pick pt up for discharge.
[2021-09-02 21:56] LABS: POC Glucose,Bedside 145 (70-110)
[2021-09-02 21:56] LABS: POC Glucose,Bedside 128 (70-110)
[2021-09-02 21:56] LABS: POC Glucose,Bedside 104 (70-110)
[2022-04-17 10:57] LABS: POC Glucose,Bedside 108 (70-110)
== END 2021-09-01 14:29 | disposition home or self-care (01) | DRG 826 ==
LOC: ER 13:09 → 2ND 14:55
PROVIDERS: Emergency Medicine; Nurse Practitioner Family; Surgery; Admitting Provider Family Medicine; Emergency Provider Emergency Medicine; PCP Family Medicine; Visit Provider Family Medicine
PROC: 0FT44ZZ Resection of Gallbladder, Percutaneous Endoscopic Approach (ICD-10-PCS; CPT 47562; principal; 2021-08-29 11:45)
DX: C7A.8 Other malignant neuroendocrine tumors (principal); K85.90 Acute pancreatitis without necrosis or infection, unspecified; K80.00 Calculus of gallbladder with acute cholecystitis without obstruction; C7B.8 Other secondary neuroendocrine tumors; Z86.16 Personal history of COVID-19; F41.9 Anxiety disorder, unspecified; I25.10 Atherosclerotic heart disease of native coronary artery without angina pectoris; F32.A Depression, unspecified; K21.9 Gastro-esophageal reflux disease without esophagitis; E78.5 Hyperlipidemia, unspecified; I10 Essential (primary) hypertension; Z95.5 Presence of coronary angioplasty implant and graft; G89.29 Other chronic pain; M54.9 Dorsalgia, unspecified; F17.210 Nicotine dependence, cigarettes, uncomplicated; E87.6 Hypokalemia
CPT/HCPCS: 47562; 47000; 36415; 70460; 71045; 71275; 74177; 80048; 80053; 80076; 81001; 82150; 82962; 83690; 84484; 85007; 85025; 85378; 85610; 87040; 93005; 96375; 96376; 99284; C9803; J1956; J2405; J2543; Q9967; U0003; U0005